=== PATIENT | female | born 1975 | race Caucasian/White ===

== ENCOUNTER 2020-08-17 07:26 | Outpatient (REF) | payer OTHER, SELFPAY ==
--- NOTE | 2020-08-17 | MM_ITS ---
EXAMINATION: MM SCREENING DIGITAL BREAST TOMOSYNTHESIS, BILATERAL CLINICAL INFORMATION: Screening. Asymptomatic. The lifetime risk of breast cancer based on the Tyrer-Cuzick Model is 11%. COMPARISON: Mammography: 03/06/2019; outside exam 09/30/2016 ([facility]). TECHNIQUE: Digital breast tomosynthesis is performed in both the craniocaudal and mediolateral oblique views along with computer-aided detection (CAD). Synthesized 2D images are generated from the tomosynthesis. FINDINGS: There are scattered areas of fibroglandular density (ACR BI-RADS breast composition Category b). There are no significant masses, abnormal calcifications, or other abnormalities. Parenchymal pattern is similar to prior exams. There is no developing density. The axilla and skin contours are unremarkable. MM/MM tomosynthesis screening BI IMPRESSION: No significant changes from prior studies. ASSESSMENT: BI-RADS 1: Negative RECOMMENDATION: Routine annual mammography screening. This patient's information was entered into a reminder system with a target due date for their next mammogram.
== END 2020-08-17 07:27 | disposition home or self-care (01) ==
LOC: HO.MAMMO 07:26
PROVIDERS: PCP Internal Medicine; Visit Provider Internal Medicine
DX: Z12.31 Encounter for screening mammogram for malignant neoplasm of breast (principal)
CPT/HCPCS: 77063; 77067

== ENCOUNTER 2021-03-22 12:37 | Outpatient (REF) | payer OTHER, SELFPAY ==
--- NOTE | ~2021-03-22 | XR_ITS ---
EXAMINATION: XR SHOULDER, LEFT CLINICAL INFORMATION: Pain. COMPARISON: None TECHNIQUE: Three views of the left shoulder. FINDINGS: There is no visible acute fracture, dislocation or subluxation seen. The soft tissues are normal. XR/XR shoulder LT min 2V IMPRESSION: Unremarkable left shoulder exam.
--- NOTE | ~2021-03-22 | XR_ITS ---
EXAMINATION: XR CERVICAL SPINE CLINICAL INFORMATION: Cervicalgia. COMPARISON: None TECHNIQUE: 3 views of the cervical spine were obtained. FINDINGS: Straightening of the normal cervical lordosis, which may be positional or related to muscular spasm. No acute fracture or subluxation. Normal atlantoaxial alignment. No loss of vertebral body or intervertebral disc height. No lytic or blastic osseous lesion. Unremarkable prevertebral soft tissues. XR/XR cervical spine 3V IMPRESSION: Straightening of the normal cervical lordosis, which may be positional or related to muscular spasm.
== END 2021-03-22 12:38 | disposition home or self-care (01) ==
LOC: HO.HMGCX 12:37
PROVIDERS: PCP Internal Medicine; Visit Provider Physician Assistant
DX: M25.512 Pain in left shoulder (principal); M54.2 Cervicalgia
CPT/HCPCS: 72040; 73030

== ENCOUNTER 2021-08-02 14:24 | Outpatient (REF) | payer OTHER, SELFPAY ==
--- NOTE | ~2021-08-02 | XR_ITS ---
EXAMINATION: XR CHEST CLINICAL INFORMATION: Cough. COMPARISON: None TECHNIQUE: 2 views of the chest were obtained. FINDINGS: No significant abnormality is noted involving the heart, lungs, mediastinum, bony thorax or soft tissues. XR/XR chest 2V IMPRESSION: No acute cardiopulmonary process.
== END 2021-08-02 14:25 | disposition home or self-care (01) ==
LOC: HO.HMGCX 14:24
PROVIDERS: PCP Internal Medicine; Visit Provider Physician Assistant Medical
DX: Z20.822 Contact with and (suspected) exposure to COVID-19 (principal); R05.9 Cough, unspecified
CPT/HCPCS: 71046; U0003; U0005

== ENCOUNTER 2021-08-18 14:52 | Outpatient (REF) | payer OTHER, SELFPAY | END 2021-08-18 14:53 | disposition home or self-care (01) | LOC: HO.MAMMO 14:52 | PROVIDERS: Visit Provider Internal Medicine | DX: Z13.89 Encounter for screening for other disorder (principal) ==

== ENCOUNTER 2021-09-17 14:19 | Outpatient (REF) | payer OTHER, SELFPAY ==
--- NOTE | ~2021-09-17 | MM_ITS ---
EXAMINATION: MM SCREENING DIGITAL BREAST TOMOSYNTHESIS, BILATERAL CLINICAL INFORMATION: Screening. Asymptomatic. The lifetime risk of breast cancer based on the Tyrer-Cuzick Model is 11.0%. COMPARISON: Mammography: August 17, 2020 and studies dating back to September 30, 2016 TECHNIQUE: Digital breast tomosynthesis is performed in both the craniocaudal and mediolateral oblique views along with computer-aided detection (CAD). Synthesized 2D images are generated from the tomosynthesis. FINDINGS: The breasts are heterogeneously dense, which may obscure small masses (ACR BI-RADS breast composition Category c). There are no significant masses, abnormal calcifications, or other abnormalities. MM/MM tomosynthesis screening BI IMPRESSION: There are no significant changes from prior study. ASSESSMENT: BI-RADS 1: Negative RECOMMENDATION: Routine annual mammography screening. This patient's information was entered into a reminder system with a target due date for their next mammogram.
== END 2021-09-17 14:20 | disposition home or self-care (01) ==
LOC: HO.MAMMO 14:19
PROVIDERS: Visit Provider Internal Medicine
DX: Z12.31 Encounter for screening mammogram for malignant neoplasm of breast (principal)
CPT/HCPCS: 77063; 77067

== ENCOUNTER 2021-11-22 08:00 | Outpatient (REF) | payer OTHER, SELFPAY ==
[2021-11-22 08:17] LABS: MANUAL DIFF FLAG NO
[2021-11-22 08:42] LABS: Basophils Percent Auto 0.1 % (0-2); Eosinophils Absolute Auto 0.1 X10*3/uL (0.0-0.4); Hematocrit 41.1 % (37.0-47.0); Hemoglobin 12.6 g/dl (12.0-16.0); Imm Gran Abs Auto 0.11 X10*3/uL (0.00-0.03); Imm Gran Pct Auto 0.8 % (0.0-0.4); Lymphocytes Absolute Auto 4.4 X10*3/uL (1.2-4.9); Lymphocytes Percent Auto 30.7 % (20-40); Mean Corpuscular HGB Conc 30.7 g/dl (31.0-35.0); Mean Corpuscular Hemoglobin 27.3 pg (27.0-33.0); Mean Platelet Volume 9.2 fL (9.4-12.3); Monocytes Absolute Auto 0.9 X10*3/uL (0.1-1.2); Monocytes Percent Auto 6.4 % (2-11); Neutrophils Absolute Auto 8.8 x10*3/uL (2.0-8.3); Platelet Count 466 X10*3/uL (160-400); Red Blood Count 4.62 X10*6/uL (4.20-5.50); Red Cell Distribution Width 13.2 % (11.0-16.0); White Blood Count 14.5 X10*3/uL (4.8-10.8)
[2021-11-22 09:07] LABS: Alanine Aminotransferase 22 U/L (0-31); Albumin Level 4.1 g/dL (3.5-5.0); Alkaline Phosphatase 97 U/L (39-117); Anion Gap 15 (12-20); Aspartate Amino Transferase 14 U/L (5-31); Bilirubin Total 0.5 mg/dL (0.0-1.0); Blood Urea Nitrogen 14 mg/dL (9-16); Calcium 9.6 mg/dL (8.4-10.2); Carbon Dioxide 29 mmol/L (22-29); Chloride 101 mmol/L (96-108); Estimated Glomerular Filt Rate > 60; Glucose Random 129 mg/dL (60-115); Potassium 4.6 mmol/L (3.3-5.1); Sodium 140 mmol/L (135-145); Total Protein 7.2 g/dL (6.5-8.0)
[2021-11-22 09:08] LABS: Cholesterol 273 mg/dL; HDL Cholesterol 76 mg/dL; LDL Cholesterol Calculated 162 mg/dl; Triglycerides 178 mg/dL
[2021-11-22 09:30] LABS: Vitamin D 25-OH Total 7.6 ng/mL (>30)
== END 2021-11-22 08:01 | disposition home or self-care (01) ==
LOC: HO.LAB 08:00
PROVIDERS: Physician Assistant; Absent Provider Internal Medicine; PCP Internal Medicine; Visit Provider Internal Medicine Rheumatology
DX: I10 Essential (primary) hypertension (principal); M79.7 Fibromyalgia
CPT/HCPCS: 36415; 80053; 80061; 82306; 85025

== ENCOUNTER 2022-03-28 09:15 | Outpatient (REF) | payer OTHER, SELFPAY ==
[2022-03-28 11:20] LABS: Alanine Aminotransferase 18 U/L (0-31); Albumin Level 4.3 g/dL (3.5-5.0); Alkaline Phosphatase 111 U/L (39-117); Anion Gap 13 (12-20); Aspartate Amino Transferase 15 U/L (5-31); Bilirubin Total 0.3 mg/dL (0.0-1.0); Blood Urea Nitrogen 9 mg/dL (9-16); Calcium 9.4 mg/dL (8.4-10.2); Carbon Dioxide 27 mmol/L (22-29); Chloride 102 mmol/L (96-108); Estimated Glomerular Filt Rate > 60; Glucose Random 133 mg/dL (60-115); Potassium 4.4 mmol/L (3.3-5.1); Sodium 138 mmol/L (135-145); Total Protein 7.5 g/dL (6.5-8.0)
[2022-03-28 11:22] LABS: Estimated Average Glucose 128 mg/dL; Hemoglobin A1c % 6.1 %
[2022-03-28 11:45] LABS: Free T4 (Free Thyroxine) 0.84 ng/dL (0.71-1.85); Insulin 21 uU/mL (2-29); Thyroid Stimulating Hormone 0.88 uIU/mL (0.32-4.0)
[2022-03-28 12:32] LABS: Cortisol Random 11.1 ug/dL
[2022-03-30 07:52] LABS: Follicle Stimulating Hormone 4.5 mIU/mL; Lutenizing Hormone 9.6 mIU/mL; Prolactin 20.3 ng/mL
[2022-03-31 00:56] LABS: DHEA Sulfate 45 mcg/dL (15-205)
[2022-03-31 18:02] LABS: Thyroid Peroxidase Antibodies <1 IU/mL (<9)
[2022-04-02 11:25] LABS: Testosterone, Total 30 ng/dL (2-45)
[2022-04-03 17:52] LABS: Progesterone 0.2 ng/mL
[2022-04-04 01:11] LABS: Estradiol, Ultrasensitive 669 pg/mL
== END 2022-03-28 09:16 | disposition home or self-care (01) ==
LOC: HO.HMGCLDS 09:15
PROVIDERS: PCP Internal Medicine; Visit Provider Physician Assistant
DX: N95.8 Other specified menopausal and perimenopausal disorders (principal); R63.5 Abnormal weight gain
CPT/HCPCS: 36415; 80053; 82533; 82627; 82670; 82672; 82681; 83001; 83002; 83036; 83525; 84144; 84146; 84403; 84439; 84443; 86376

== ENCOUNTER 2022-08-14 15:42 | Outpatient (REF) | payer OTHER, SELFPAY ==
[2022-08-14 17:54] LABS: CT PCR NOT DETECTED (Not Detect.); NG PCR NOT DETECTED (Not Detect.)
[2022-08-15 15:01] LABS: BV Int Neg Control Negative (Negative); BV Int Pos Control Positive (Positive)
[2022-08-26 04:57] LABS: HPV mRNA E6/E7 rflx Not Detected (Not Detected)
== END 2022-08-14 15:43 | disposition home or self-care (01) ==
LOC: HO.LNP 15:42
PROVIDERS: Visit Provider Advanced Practice Midwife
DX: Z01.419 Encounter for gynecological examination (general) (routine) without abnormal findings (principal); Z11.51 Encounter for screening for human papillomavirus (HPV)
CPT/HCPCS: 87480; 87491; 87510; 87591; 87624; 87660; 88142

== ENCOUNTER 2022-09-18 13:31 | Outpatient (REF) | payer OTHER, SELFPAY ==
[2022-09-18 15:24] LABS: Hematocrit 35.5 % (37.0-47.0); Hemoglobin 11.4 g/dl (12.0-16.0); Mean Corpuscular HGB Conc 32.1 g/dl (31.0-35.0); Mean Corpuscular Hemoglobin 27.2 pg (27.0-33.0); Mean Corpuscular Volume 84.7 fL (80.0-98.0); Mean Platelet Volume 9.4 fL (9.4-12.3); Platelet Count 414 X10*3/uL (160-400); Red Blood Count 4.19 X10*6/uL (4.20-5.50); White Blood Count 11.2 X10*3/uL (4.8-10.8)
== END 2022-09-18 13:32 | disposition home or self-care (01) ==
LOC: HO.US 13:31
PROVIDERS: Absent Provider Advanced Practice Midwife; PCP Internal Medicine; Visit Provider Obstetrics & Gynecology
DX: N92.0 Excessive and frequent menstruation with regular cycle (principal)
CPT/HCPCS: 36415; 76830; 76856; 85027

== ENCOUNTER 2022-09-22 13:32 | Outpatient (REF) | payer OTHER, SELFPAY ==
--- NOTE | ~2022-09-22 | MM_ITS ---
EXAMINATION: MM SCREENING DIGITAL BREAST TOMOSYNTHESIS, BILATERAL CLINICAL INFORMATION: Screening. Asymptomatic. The lifetime risk of breast cancer based on the Tyrer-Cuzick Model is 10.9%. COMPARISON: Mammography: September 17, 2021 and studies dating back to September 30, 2016 TECHNIQUE: Digital breast tomosynthesis is performed in both the craniocaudal and mediolateral oblique views along with computer-aided detection (CAD). Synthesized 2D images are generated from the tomosynthesis. FINDINGS: The breasts are heterogeneously dense, which may obscure small masses (ACR BI-RADS breast composition Category c). There are no significant masses, abnormal calcifications, or other abnormalities. MM/MM tomosynthesis screening BI IMPRESSION: No significant changes from prior exam. ASSESSMENT: BI-RADS 1: Negative RECOMMENDATION: Routine annual mammography screening. This patient's information was entered into a reminder system with a target due date for their next mammogram.
== END 2022-09-22 13:33 | disposition home or self-care (01) ==
LOC: HO.MAMMO 13:32
PROVIDERS: Visit Provider Internal Medicine
DX: Z12.31 Encounter for screening mammogram for malignant neoplasm of breast (principal)
CPT/HCPCS: 77063; 77067

== ENCOUNTER 2022-10-01 09:43 | Outpatient (REF) | payer OTHER, SELFPAY | END 2022-10-01 09:44 | disposition home or self-care (01) | LOC: HO.LNP 09:43 | PROVIDERS: PCP Internal Medicine; Visit Provider Advanced Practice Midwife | DX: Z71.2 Person consulting for explanation of examination or test findings (principal); N92.0 Excessive and frequent menstruation with regular cycle | CPT/HCPCS: 58100; 81025; 88305 ==

== ENCOUNTER → 2022-10-21 14:24 | Outpatient (BNVA) | payer OTHER, SELFPAY | PROVIDERS: PCP Internal Medicine; Visit Provider Advanced Practice Midwife | DX: N92.0 Excessive and frequent menstruation with regular cycle (principal); Z71.2 Person consulting for explanation of examination or test findings | CPT/HCPCS: 81025 ==

== ENCOUNTER → 2023-10-01 15:30 | Outpatient (BNV) | payer OTHER, SELFPAY | PROVIDERS: PCP Internal Medicine; Visit Provider Radiology Diagnostic Radiology | DX: Z12.31 Encounter for screening mammogram for malignant neoplasm of breast (principal) | CPT/HCPCS: 77063; 77067 ==

== ENCOUNTER 2023-10-01 15:36 | Outpatient (REF) | payer OTHER, SELFPAY ==
--- NOTE | ~2023-10-01 | MM_ITS ---
EXAMINATION: MM SCREENING DIGITAL BREAST TOMOSYNTHESIS, BILATERAL CLINICAL INFORMATION: Screening. Asymptomatic. COMPARISON: Mammography: 09/22/2022, 09/17/2021, and studies dating back to September 30, 2016 TECHNIQUE: Digital breast tomosynthesis is performed in both the craniocaudal and mediolateral oblique views along with computer-aided detection (CAD). Synthesized 2D images are generated from the tomosynthesis. FINDINGS: The breasts are heterogeneously dense, which may obscure small masses (ACR BI-RADS breast composition Category c). There are no suspicious masses, suspicious grouped calcifications, or areas of architectural distortion in either breast. The parenchymal pattern is stable from prior exams. MM/MM tomosynthesis screening BI IMPRESSION: No mammographic evidence of malignancy. ASSESSMENT: BI-RADS BI-RADS 1 - Negative RECOMMENDATION: Routine annual mammography screening. 1 year F/U This examination should not preclude the clinical evaluation of a suspicious palpable abnormality. This patient's information was entered into a reminder system with a target due date for their next mammogram.
== END 2023-10-01 15:37 | disposition home or self-care (01) ==
LOC: HO.MAMMO 15:36
PROVIDERS: PCP Internal Medicine; Visit Provider Internal Medicine
DX: Z12.31 Encounter for screening mammogram for malignant neoplasm of breast (principal)
CPT/HCPCS: 77063; 77067

== ENCOUNTER → 2023-11-04 15:00 | Outpatient (BNVA) | payer OTHER, SELFPAY | PROVIDERS: PCP Internal Medicine; Visit Provider Physician Assistant ==

== ENCOUNTER 2023-11-24 14:02 | Outpatient (AMB) | payer OTHER, SELFPAY ==
--- NOTE | 2023-11-24 14:04 | A.OFFVIS_ITS ---
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 dustmites, trees, gras Allergy (Unknown, Uncoded 11/24/23 14:17) Itchy Eyes HPI HPI Comments History of Present Illness Details This is a 48 year old woman who is here to start SWL program with SWL classes. Her goal is to not have her weight be in her wy of her life. She reports first being concerned about her weight . She has tried multiple methods of weight loss including 25 years ado. without permanent results. Sees a therapist for the last year.She lives with her ppartnerRicardo. She works 7:30 - 5pm, 5 days per week She wakes at: 5am, bed at 8pm, falls asleep with TV on around 8:30 -9 pm. Breakfast: 5:40 am - coffee 1 cup with whole milk. skips breakfast every day. Then gets large Iced coffee with creams and sugared syrup - sips on that through the day. Lunch: 11:30 am - snap peas and single serving humus and pretzels, piece of cheddar cheese. water Dinner: 6pm - 2 chicken tacos and lettuce, rice and beans. either 1 beer or 1 glass of wine. After dinner: none Other snacks: none Liquids: Ocassioanl gingerale, no fruit juice Alcohol intake: 1 drink per day, 2 drinks on weekends. tobacco: none, marijuana: none Exercise: none, no membership or equipment Last mammogram: Aug 2023 Last pap smear: appt in December 2023 control method: none JAIRO:5 ESS:13 GERD:25 QOL:139 PFSH Medical History (Updated 11/24/23 @ 14:43 by Courtney Rosenthal PA-C) Migraines, neuralgic Anxiety Depression Asthma Surgical History (Updated 11/04/23 @ 15:08 by Melida Scherer [facility]) [place] teeth removed H/O knee surgery Family History Father Diabetes HTN (hypertension) Hyperlipidemia Mother HTN (hypertension) Osteoporosis Uterine cancer Maternal Grandmother Colon cancer Social History (Updated 11/04/23 @ 15:08 by Melida Scherer [employer] BUTTON GENERATOR) Household Members Other:: partner Housing: House Alcohol intake: current Alcohol intake frequency: 0-2 drinks per day Alcohol type: beer and wine Patient Tobacco Use Status: Former Tobacco user Years Smoked: 5 Current occupational status: employed 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 Blood work, h pylori , CXR, ECG, Abd ULS and UGI have been ordered. She is being scheduled for RD and BH initial consultations. She will start SWL classes and watch at 3 classes before her next appt with Irlanda. 1. Adequate sleep of 7-8 hours per night discussed, will use meditation or relaxation not TV to fall asleep 2. Healthy meal plan - stop skipping meals and stop all sweetened drinks, no caffeine after 2pm. Decrease ETOH. All meals/MR's need to take 20 minutes to complete Coffee with UAM only 9 am - protein shake with water or UAM 12 pm - protein shake with water or UAM 3 pm- bar or yogurt 6 pm- dinner of 12 forks lean protein, 12 forks vegetable, 1 serving fruit Exercise - purchasing treadmill for home use. LS 2mile - 30 minutes - 4 d/wk The importance of avoiding and breast feeding for at least 18 months after bariatric surgery was discussed in the information session and was reinforced today. Pt will purchase body composition analyzer (recommended list given to patient) and weight herself weekly. Next appt with Dr Stock Text me with any questions and weekly weights. Patient is morbidly obese and is not considered stable at this time.?I spent a total of 60 minutes reviewing/updating records, examining the patient and counseling the patient on weight management as detailed above. (2) YENNIFER on CPAP: Code(s): G47.33 - Obstructive sleep apnea (adult) (pediatric) (3) Major depression: Code(s): F32.9 - Major depressive disorder, single episode, unspecified (4) Hyperlipidemia: Code(s): E78.5 - Hyperlipidemia, unspecified (5) HTN (hypertension), benign: Code(s): I10 - Essential (primary) hypertension Plan see above Orders: Orders Hemoglobin A1c Today E66.01 - Morbid (severe) obesity due to excess calories, E78.5 - Hyperlipidemia, unspecified, F32.9 - Major depressive disorder, single episode, unspecified, G47.33 - Obstructive sleep apnea (adult) (pediatric), I10 - Essential (primary) hypertension H Pylori Breath Test Today E66.01 - Morbid (severe) obesity due to excess calories, E78.5 - Hyperlipidemia, unspecified, F32.9 - Major depressive disorder, single episode, unspecified, G47.33 - Obstructive sleep apnea (adult) (pediatric), I10 - Essential (primary) hypertension Lipid Panel Today E66.01 - Morbid (severe) obesity due to excess calories, E78.5 - Hyperlipidemia, unspecified, F32.9 - Major depressive disorder, single episode, unspecified, G47.33 - Obstructive sleep apnea (adult) (pediatric), I10 - Essential (primary) hypertension Comprehensive Met. Panel Today E66.01 - Morbid (severe) obesity due to excess calories, E78.5 - Hyperlipidemia, unspecified, F32.9 - Major depressive disorder, single episode, unspecified, G47.33 - Obstructive sleep apnea (adult) (pediatric), I10 - Essential (primary) hypertension Zinc Today E66.01 - Morbid (severe) obesity due to excess calories, E78.5 - Hyperlipidemia, unspecified, F32.9 - Major depressive disorder, single episode, unspecified, G47.33 - Obstructive sleep apnea (adult) (pediatric), I10 - Essential (primary) hypertension Vitamin A Today E66.01 - Morbid (severe) obesity due to excess calories, E78.5 - Hyperlipidemia, unspecified, F32.9 - Major depressive disorder, single episode, unspecified, G47.33 - Obstructive sleep apnea (adult) (pediatric), I10 - Essential (primary) hypertension Ferritin Today E66.01 - Morbid (severe) obesity due to excess calories, E78.5 - Hyperlipidemia, unspecified, F32.9 - Major depressive disorder, single episode, unspecified, G47.33 - Obstructive sleep apnea (adult) (pediatric), I10 - Essential (primary) hypertension Vitamin D 25-OH Total Today E66.01 - Morbid (severe) obesity due to excess calories, E78.5 - Hyperlipidemia, unspecified, F32.9 - Major depressive disorder, single episode, unspecified, G47.33 - Obstructive sleep apnea (adult) (pediatric), I10 - Essential (primary) hypertension US abdomen comp w elastography Today E66.01 - Morbid (severe) obesity due to excess calories, E78.5 - Hyperlipidemia, unspecified, F32.9 - Major depressive disorder, single episode, unspecified, G47.33 - Obstructive sleep apnea (adult) (pediatric), I10 - Essential (primary) hypertension XR chest 2V Today E66.01 - Morbid (severe) obesity due to excess calories, E78.5 - Hyperlipidemia, unspecified, F32.9 - Major depressive disorder, single episode, unspecified, G47.33 - Obstructive sleep apnea (adult) (pediatric), I10 - Essential (primary) hypertension ECG 12 lead EKG Today E66.01 - Morbid (severe) obesity due to excess calories, E78.5 - Hyperlipidemia, unspecified, F32.9 - Major depressive disorder, single episode, unspecified, G47.33 - Obstructive sleep apnea (adult) (pediatric), I10 - Essential (primary) hypertension FL upper GI w air Today E66.01 - Morbid (severe) obesity due to excess calories, E78.5 - Hyperlipidemia, unspecified, F32.9 - Major depressive disorder, single episode, unspecified, G47.33 - Obstructive sleep apnea (adult) (pediatric), I10 - Essential (primary) hypertension Insulin Today E66.01 - Morbid (severe) obesity due to excess calories, E78.5 - Hyperlipidemia, unspecified, F32.9 - Major depressive disorder, single episode, unspecified, G47.33 - Obstructive sleep apnea (adult) (pediatric), I10 - Essential (primary) hypertension Complete Blood Count Auto Diff Today E66.01 - Morbid (severe) obesity due to excess calories, E78.5 - Hyperlipidemia, unspecified, F32.9 - Major depressive disorder, single episode, unspecified, G47.33 - Obstructive sleep apnea (adult) (pediatric), I10 - Essential (primary) hypertension IRON PROFILE Today E66.01 - Morbid (severe) obesity due to excess calories, E78.5 - Hyperlipidemia, unspecified, F32.9 - Major depressive disorder, single episode, unspecified, G47.33 - Obstructive sleep apnea (adult) (pediatric), I10 - Essential (primary) hypertension Vitamin B12 and Folate Today E66.01 - Morbid (severe) obesity due to excess calories, E78.5 - Hyperlipidemia, unspecified, F32.9 - Major depressive disorder, single episode, unspecified, G47.33 - Obstructive sleep apnea (adult) (pediatric), I10 - Essential (primary) hypertension C Reactive Protein Today E66.01 - Morbid (severe) obesity due to excess calories, E78.5 - Hyperlipidemia, unspecified, F32.9 - Major depressive disorder, single episode, unspecified, G47.33 - Obstructive sleep apnea (adult) (pediatric), I10 - Essential (primary) hypertension Vitamin B1 Today E66.01 - Morbid (severe) obesity due to excess calories, E78.5 - Hyperlipidemia, unspecified, F32.9 - Major depressive disorder, single episode, unspecified, G47.33 - Obstructive sleep apnea (adult) (pediatric), I10 - Essential (primary) hypertension TSH reflex Free T4 Today E66.01 - Morbid (severe) obesity due to excess calories, E78.5 - Hyperlipidemia, unspecified, F32.9 - Major depressive disorder, single episode, unspecified, G47.33 - Obstructive sleep apnea (adult) (pediatric), I10 - Essential (primary) hypertension Referrals Behavioral Health Referral E66.01 - Morbid (severe) obesity due to excess calories, E78.5 - Hyperlipidemia, unspecified, F32.9 - Major depressive disorder, single episode, unspecified, G47.33 - Obstructive sleep apnea (adult) (pediatric), I10 - Essential (primary) hypertension Nutrition/Dietitian Referral E66.01 - Morbid (severe) obesity due to excess calories, E78.5 - Hyperlipidemia, unspecified, F32.9 - Major depressive disorder, single episode, unspecified, G47.33 - Obstructive sleep apnea (adult) (pediatric), I10 - Essential (primary) hypertension Coding Level of Care Code New Pt Level 5 (16620) Diagnoses Morbid obesity E66.01 YENNIFER on CPAP G47.33 Major depression F32.9 Hyperlipidemia E78.5 HTN (hypertension), benign I10
[2023-11-24 14:09] VITALS: BP 164/76; PULSE 95; TEMP 35.8; O2SAT 95; BMI 50.6
== END 2023-11-24 15:04 | disposition home or self-care (01) ==
PROVIDERS: PCP Internal Medicine; Visit Provider Physician Assistant
DX: E66.01 Morbid (severe) obesity due to excess calories (principal); Z68.43 Body mass index [BMI] 50.0-59.9, adult; G47.33 Obstructive sleep apnea (adult) (pediatric); E78.5 Hyperlipidemia, unspecified; I10 Essential (primary) hypertension
CPT/HCPCS: 99205

== ENCOUNTER → 2023-11-24 14:02 | Outpatient (BNVA) | payer OTHER, SELFPAY | PROVIDERS: PCP Internal Medicine; Visit Provider Physician Assistant ==

== ENCOUNTER 2023-12-04 08:41 | Outpatient (REF) | payer OTHER, SELFPAY ==
--- NOTE | ~2023-12-04 | XR_ITS ---
EXAMINATION: XR CHEST 2 VIEWS CLINICAL INFORMATION: Morbid obesity. COMPARISON: Chest radiographs dated 08/02/2021. TECHNIQUE: Frontal and lateral views of the chest were obtained. FINDINGS: The heart, great vessels, pulmonary vasculature and mediastinum are normal. The lungs show no focal infiltrate, effusion or pneumothorax. There is no acute osseous abnormality. XR/XR chest 2V IMPRESSION: No active cardiopulmonary disease.
[2023-12-04 11:09] LABS: Basophils Percent Auto 0.4 % (0-2); Eosinophils Absolute Auto 0.3 X10*3/uL (0.0-0.4); Eosinophils Percent Auto 3.6 % (0-4); Hematocrit 39.3 % (37.0-47.0); Hemoglobin 12.6 g/dl (12.0-16.0); Imm Gran Abs Auto 0.03 X10*3/uL (0.00-0.03); Imm Gran Pct Auto 0.4 % (0.0-0.4); Lymphocytes Absolute Auto 1.8 X10*3/uL (1.2-4.9); Lymphocytes Percent Auto 23.3 % (20-40); MANUAL DIFF FLAG NO; Mean Corpuscular HGB Conc 32.1 g/dl (31.0-35.0); Mean Corpuscular Hemoglobin 27.7 pg (27.0-33.0); Mean Corpuscular Volume 86.4 fL (80.0-98.0); Mean Platelet Volume 10.1 fL (9.4-12.3); Monocytes Absolute Auto 0.6 X10*3/uL (0.1-1.2); Monocytes Percent Auto 7.4 % (2-11); Neutrophils Absolute Auto 4.9 x10*3/uL (2.0-8.3); Neutrophils Percent Auto 64.9 % (45-73); Platelet Count 392 X10*3/uL (160-400); Red Blood Count 4.55 X10*6/uL (4.20-5.50); Red Cell Distribution Width 13.1 % (11.0-16.0); White Blood Count 7.6 X10*3/uL (4.8-10.8)
[2023-12-04 11:24] LABS: Estimated Average Glucose 131 mg/dL; Hemoglobin A1c % 6.2 % (<6.0)
[2023-12-04 12:36] LABS: Alanine Aminotransferase 50 U/L (0-31); Albumin Level 4.2 g/dL (3.5-5.0); Alkaline Phosphatase 104 U/L (39-117); Anion Gap 12 (12-20); Aspartate Amino Transferase 42 U/L (5-31); Bilirubin Total 0.4 mg/dL (0.0-1.0); Blood Urea Nitrogen 12 mg/dL (9-16); C Reactive Protein 1.05 mg/dL (< or = 0.50); Calcium 9.5 mg/dL (8.4-10.2); Carbon Dioxide 27 mmol/L (22-29); Chloride 104 mmol/L (96-108); Cholesterol 184 mg/dL (<200); Estimated Glomerular Filt Rate > 60; Glucose Random 123 mg/dL (60-115); HDL Cholesterol 39 mg/dL (>40); Iron 56 mcg/dL (30-160); LDL Cholesterol Calculated 119 mg/dL (<100); Percent Iron Saturation 18 % (15-50); Potassium 4.3 mmol/L (3.3-5.1); Sodium 139 mmol/L (135-145); Total Iron Binding Capacity 311 mcg/dL (228-428); Total Protein 7.6 g/dL (6.5-8.0); Triglycerides 133 mg/dL (<150); Unsaturated Iron Binding 255 ug/dL
[2023-12-04 12:37] LABS: Ferritin 57 ng/mL (10-250); Insulin 11 uU/mL (2-29); TSH reflex Free T4 0.63 uIU/mL (0.32-4.0); Vitamin D 25-OH Total 42.2 ng/mL (>30)
[2023-12-04 12:45] LABS: Folate 13.6 ng/mL (> or = 4.0); Vitamin B12 677 pg/mL (200-900)
[2023-12-07 16:39] LABS: Zinc 73 mcg/dL (60-130)
[2023-12-09 01:14] LABS: Vitamin A 34 mcg/dL (38-98)
[2023-12-11 13:23] LABS: Vitamin B1 7 nmol/L (8-30)
== END 2023-12-04 08:42 | disposition home or self-care (01) ==
LOC: HO.HMGCX 08:41
PROVIDERS: PCP Internal Medicine; Visit Provider Physician Assistant
DX: E66.01 Morbid (severe) obesity due to excess calories (principal); G47.33 Obstructive sleep apnea (adult) (pediatric); F32.9 Major depressive disorder, single episode, unspecified; E78.5 Hyperlipidemia, unspecified; I10 Essential (primary) hypertension
CPT/HCPCS: 36415; 71046; 80053; 80061; 82306; 82607; 82728; 82746; 83036; 83525; 83540; 84425; 84443; 84590; 84630; 85025; 86140

== ENCOUNTER 2023-12-07 14:19 | Outpatient (REF) | payer OTHER, SELFPAY ==
[2023-12-12 14:28] LABS: H Pylori Breath Test Negative (Negative)
== END 2023-12-07 14:20 | disposition home or self-care (01) ==
LOC: HO.LNP 14:19
PROVIDERS: Visit Provider Physician Assistant
DX: E66.01 Morbid (severe) obesity due to excess calories (principal); E78.5 Hyperlipidemia, unspecified; I10 Essential (primary) hypertension
CPT/HCPCS: 83013

== ENCOUNTER 2023-12-07 15:17 | Outpatient (AMB) | payer OTHER, SELFPAY ==
--- NOTE | 2023-12-07 15:21 | A.OFFVIS_ITS ---
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 dustmites, trees, gras Allergy (Unknown, Uncoded 11/24/23 14:17) Itchy Eyes HPI Nutrition Presentation Reason for consult elevated BMI Food allergies/aversions Yes (Chocolate and tomato both causes rashes on face, hands, lips ) Diet Assmnt Details Using Premier protein and Atkins , has allergy to chocolate, so choosing other flavors. dinner mainly has protein and veg, she is happy with the plan from Courtney SUTTON, will see Dr. Dean in 2 weeks to establish care. [facility] online classes; completed, reviewed. Previous weight loss methods attempted phentermine - didn't tolerate She has tried multiple methods of weight loss including 25 years ado. without permanent results. Sees a therapist for the last year Dietary counseling reduction Meal frequency regular: lunch, dinner and snacks and never: breakfast Lifestyle Eating out 1-3 times/week Diagnosis Nutrition problem #1 overweight/obesity As related to (etiology) #1 excess energy intake and physical inactivity As evidenced by (sign/symptom) #1 high BMI Monitoring/Goals Nutrition problem monitoring total energy intake, level of knowledge/skill, total PRO intake, total CHO intake, weight and oral fluids Outcome progress progressing Learning/Education Readiness to learn excellent Stages of change action Educational materials provided Yes Most Recent Diabetes Results: Cholesterol 184 mg/dL (<200) 12/04/23 HDL Cholesterol 39 mg/dL (>40) L 12/04/23 Triglycerides 133 mg/dL (<150) 12/04/23 Creatinine 0.70 mg/dL (0.5-1.4) 12/04/23 Blood Urea Nitrogen 12 mg/dL (9-16) 12/04/23 Sodium 139 mmol/L (135-145) 12/04/23 Potassium 4.3 mmol/L (3.3-5.1) 12/04/23 Chloride 104 mmol/L (96-108) 12/04/23 Carbon Dioxide 27 mmol/L (22-29) 12/04/23 Calcium 9.5 mg/dL (8.4-10.2) 12/04/23 AST 42 U/L (5-31) H 12/04/23 ALT 50 U/L (0-31) H 12/04/23 Total Protein 7.6 g/dL (6.5-8.0) 12/04/23 Albumin 4.2 g/dL (3.5-5.0) 12/04/23 [facility] Medical History (Updated 11/24/23 @ 14:43 by TANYA HoskinsC) Migraines, neuralgic Anxiety Depression Asthma Surgical History [place] teeth removed H/O knee surgery Family History Father Diabetes HTN (hypertension) Hyperlipidemia Mother HTN (hypertension) Osteoporosis Uterine cancer Maternal Grandmother Colon cancer Social History Household Members Other:: partner Housing: House Alcohol intake: current Alcohol intake frequency: 0-2 drinks per day Alcohol type: beer and wine Patient Tobacco Use Status: Former Tobacco user Years Smoked: 5 Current occupational status: employed 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 Educational requirements have been completed. Reviewed vitamin supplementation and commitment to protein shake for several months post surgery. Encouraged communication with office as needed Coding Level of Care Code Nutr Indiv Intake (16363) Diagnoses Morbid obesity E66.01 Time Spent (min) 45
== END 2023-12-07 16:15 | disposition home or self-care (01) ==
PROVIDERS: PCP Internal Medicine; Visit Provider Dietitian, Registered
DX: E66.01 Morbid (severe) obesity due to excess calories (principal)

== ENCOUNTER → 2023-12-07 15:17 | Outpatient (BNVA) | payer OTHER, SELFPAY | PROVIDERS: PCP Internal Medicine; Visit Provider Dietitian, Registered | DX: E66.01 Morbid (severe) obesity due to excess calories (principal); Z71.3 Dietary counseling and surveillance; Z11.0 Encounter for screening for intestinal infectious diseases | CPT/HCPCS: 97802; 99211 ==

== ENCOUNTER 2023-12-15 08:24 | Outpatient (REF) | payer OTHER, SELFPAY ==
--- NOTE | ~2023-12-15 | US_ITS ---
EXAMINATION: US COMPLETE ABDOMEN WITH LIVER ELASTOGRAPHY CLINICAL INFORMATION: Obesity. COMPARISON: None available. TECHNIQUE: Real-time imaging of the abdominal viscera. Noninvasive ultrasound liver fibrosis assessment is performed using [employer] ElastPQ point quantification shear wave elastography (2D-SWE) with a C5-2 MHz transducer. Multiple elastography samples are obtained. FINDINGS: PANCREAS: Limited. The visualized pancreatic head and body are normal in appearance. The remainder of the pancreas is obscured from visualization by the overlying bowel gas. ABDOMINAL AORTA: The proximal, middle, and distal aortic segments are normal in caliber. INFERIOR VENA CAVA: Visualized portions are normal. LIVER: The liver demonstrates normal size, contour and generally increased echogenicity. No focal lesion or intrahepatic biliary duct dilatation. The right lobe measures 16.9 cm in length. The left lobe measures 13.3 cm in length. Portal flow is towards the liver (hepatopetal). Shear wave liver elastography median stiffness is 1.04 m/s (reference: normal median stiffness is 1.3 m/s or less). IQR/median stiffness to assess sampling precision is 0.53 (reference: good quality data set is IQR/median stiffness of 0.15 or less). GALLBLADDER: Normal. The gallbladder is physiologically distended without evidence of stones, sludge, polyps, wall thickening or pericholecystic fluid. COMMON BILE DUCT: Normal in caliber measuring 0.5 cm in diameter. RIGHT KIDNEY: Normal. No hydronephrosis. No renal calculi or focal parenchymal lesions. The kidney measures 11.4 cm in maximum dimension. LEFT KIDNEY: Normal. No hydronephrosis. No renal calculi or focal parenchymal lesions. The kidney measures 11.3 cm in maximum dimension. SPLEEN: Normal. The spleen measures 10.9 cm in maximum dimension. FREE FLUID: None. US/US abdomen comp w elastography IMPRESSION: 1. There is generalized increase in hepatic echotexture, consistent with fatty infiltration or hepatocellular disease. Please correlate clinically. No focal hepatic mass or intrahepatic biliary dilatation is seen. 2. Liver elastography: Although measurements suggest a high probability of normal liver stiffness, there is statistical variability of the sampling which decreases accuracy. 3. Further limited ultrasound appearance of the pancreas. REFERENCE: Society of Radiologists in Ultrasound Liver Stiffness Thresholds (2020): LIVER STIFFNESS THRESHOLDS: *Liver Stiffness equal or less than 1.3 m/s: High probability of being normal. *Liver Stiffness less than 1.7 m/s: In the absence of other known clinical signs, rules out compensated advanced chronic liver disease. *Liver Stiffness 1.7-2.1 m/s: Suggestive of compensated advanced chronic liver disease but need further test for confirmation. *Liver Stiffness over 2.1 m/s: Rules in compensated advanced chronic liver disease. *Liver Stiffness over 2.4 m/s: Suggestive of clinically significant portal hypertension. QUALITY OF DATA SET: *IQR/Median value equal or less than 0.15 implies a quality data set. *IQR/Median value over 0.15 implies a poor quality data set. SIGNIFICANT CHANGE FROM PRIOR EXAM: Significant change if liver stiffness measurement is 10% or greater from prior exam. OTHER CONSIDERATIONS: The stage of liver fibrosis may be overestimated in the setting of acute hepatitis, liver inflammation, elevated liver function tests, hepatic vascular congestion, obstructive cholestasis, non-fasting state, and infiltrative diseases such as amyloidosis and lymphoma. In some patients with NAFLD, the liver stiffness thresholds for compensated advanced chronic liver disease may be lower. In causes other than viral hepatitis and NAFLD, liver stiffness thresholds are not well established.
--- NOTE | 2023-12-15 09:04 | ECG_ITS ---
Test Reason : obesity Blood Pressure : / mmHG Vent. Rate : 075 BPM Atrial Rate : 075 BPM P-R Int : 128 ms QRS Dur : 080 ms QT Int : 396 ms P-R-T Axes : 004 046 023 degrees QTc Int : 442 ms Normal sinus rhythm Nonspecific ST abnormality Abnormal ECG No previous ECGs available Referred By: Courtney Rosenthal Electronically Signed By:MIKE GREER
== END 2023-12-15 08:25 | disposition home or self-care (01) ==
LOC: HO.US 08:24
PROVIDERS: PCP Internal Medicine; Visit Provider Physician Assistant
DX: E66.01 Morbid (severe) obesity due to excess calories (principal); I10 Essential (primary) hypertension; F32.9 Major depressive disorder, single episode, unspecified; E78.5 Hyperlipidemia, unspecified; G47.33 Obstructive sleep apnea (adult) (pediatric)
CPT/HCPCS: 76700; 76981; 93005

== ENCOUNTER → 2023-12-15 09:04 | Outpatient (BNV) | payer OTHER, SELFPAY | PROVIDERS: PCP Internal Medicine; Visit Provider Internal Medicine | DX: E66.9 Obesity, unspecified (principal); R94.31 Abnormal electrocardiogram [ECG] [EKG]; E78.5 Hyperlipidemia, unspecified | CPT/HCPCS: 93010 ==

== ENCOUNTER 2023-12-20 08:19 | Outpatient (AMB) | payer OTHER, SELFPAY ==
--- NOTE | 2023-12-20 13:21 | MHC.OFFVISWM ---
Intake VS Expanded 12/20/23 13:36 Height 5 ft 1 in Weight 258 lb 4 oz BMI 48.8 Intake Visit Reasons: TV Transfer / Courtney 1ST Allergies amoxicillin [From Augmentin] Adverse Reaction (Verified 12/20/23 13:21) Rash clavulanic acid [From Augmentin] Adverse Reaction (Verified 12/20/23 13:21) Rash Isopropanol buto bicarbonate Allergy (Unknown, Uncoded 12/20/23 13:21) Rash Latex Allergy (Unknown, Uncoded 12/20/23 13:21) Rash Pollen. dustmites, trees, gras Allergy (Unknown, Uncoded 12/20/23 13:21) Itchy Eyes Medication List - Last Reconciled 12/20/23 by Marc Dean MD albuterol sulfate 90 mcg/actuation 2 puffs inhalation Q6H PRN atorvastatin 40 mg PO DAILY betamethasone dipropionate 0.05% topical duloxetine 60 mg PO DAILY losartan 50 mg PO DAILY montelukast 10 mg PO DAILY oxybutynin chloride ER 10 mg PO DAILY piroxicam 10 mg PO DAILY PRN thiamine HCl (vitamin B1) 50 mg PO DAILY vitamin A palmitate 6,000 mcg (2 x 3,000 mcg (10,000 unit)) PO DAILY 2 weeks HPI TV Transfer / Courtney 1ST HPI Details Start time: 12.57m, End time: 1.42pm ?I spent 40 minutes speaking with the patient on the phone plus an additional 5 minutes reviewing and updating records for a total of 45 minutes HPI Comments History of Present Illness Details Overall weight loss: 8.4lbs, or 3.15% TBWL Is doing 2 Premier protein shakes (2 scoops in almond milk), 1 Atkins protein bar, dinner (12 forks of protein and 12 forks of salad or vegetables) Exercise: walking outside REPLACED BY [facility] Medical History (Updated 12/20/23 @ 13:25 by Marc Dean MD) Stress incontinence GERD (gastroesophageal reflux disease) Rheumatoid arthritis Migraines, neuralgic Anxiety Depression Asthma Surgical History [place] teeth removed H/O knee surgery Family History Father Diabetes HTN (hypertension) Hyperlipidemia Mother HTN (hypertension) Osteoporosis Uterine cancer Maternal Grandmother Colon cancer Social History Household Members Other:: partner Housing: House Alcohol intake: current Alcohol intake frequency: 0-2 drinks per day Alcohol type: beer and wine Patient Tobacco Use Status: Former Tobacco user Years Smoked: 5 Current occupational status: employed 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 Plan for lap sleeve gastrectomy. If diaphragmatic or ventral hernias are present at time of surgery, these will be repaired laparoscopically as well. Risks and complications were discussed in detail including possible conversion to an open procedure, anastomotic leak, bleeding requiring transfusion, small bowel obstruction, , DVT and pulmonary embolism, cardiac, or pulmonary complications, as meterman complications such as anastomotic ulcer, insufficient weight loss and vitamin deficiencies. I emphasized the importance of close follow-up, adherence to instructions and good communication. 2. Nutritional counseling. Change nutritional plan to 2 Premier protein shakes per day (ONE scoop each in 8oz almond milk), one Atkins protein bar and dinner (12 forks of protein and 12 forks of salad/vegetables). Meal to include lean meat (beef, fish, pork, turkey, chicken), or nepali yogurt, or egg whites, or beans with a salad with olive oil and fruits (berries, pears, apples, kiwi). Avoid salt, breads, potatoes, rice, pasta, desserts. 3. Each shake would be drunk slowly, like coffee in a period of 2 hours. 4. Cut each bar in 4 pieces and eat each piece in 30min ?to make each bar last 2 hours. 5. I emphasized the importance of measuring accurately the food portion and measure it when serving the food in plate 6. The meal portions include 12 full-size forks of meat and 12 full-size forks of salad. You always eat the meat portion but you can replace up to 6 forks for salad/vegetables with rice, potatoes or pasta, or a fruit ?if you like. The less you do it the better weight loss will be. 7. One full-size fork is what it can be scooped on the fork without falling aside and not what can be bit with the fork. Use regular forks like those you find in a typical restaurant. 8.? Please send me weight measurements weekly on Mondays 9. The best choice would be to purchase a stationary bike at home that can track calories. Let me know if you do so I can give you an exercise plan. 10.?It is important of avoiding and for at least 18 months postoperatively and has been discussed at the infosession. 11. Goal is to lose at least 1.5-2lbs per week 12. Goal to lose 10% of your weight before surgery, which is about 26lbs. Ultimate weight goal: 240lbs before surgery 13. Please follow the diet plan exactly without any change. If you don't like something about the plan or you feel hungry you need to communicate with me so I can help you revise the plan. You should not change the plan yourself. Telehealth Telehealth Location of provider rendering services: practice address Location of patient: address on file Patient Identification confirmed using: Name, : Yes Telehealth method: voice only Patient verbally consented to treatment: Yes Patient verbally consented to billing insurance company: Yes Patient informed of any privacy concerns related to visit: Yes Minutes spent on Phone/Video with Pt.: 45 Coding Level of Care Code Tele Est Pt Level 5 (96981) Diagnoses Morbid obesity E66.01 Time Spent (min) 45
[2023-12-20 13:36] VITALS: BMI 48.8
== END 2023-12-20 13:43 | disposition home or self-care (01) ==
LOC: HO.HBS 08:19
PROVIDERS: PCP Internal Medicine; Visit Provider Surgery
DX: E66.01 Morbid (severe) obesity due to excess calories (principal); Z68.42 Body mass index [BMI] 45.0-49.9, adult
CPT/HCPCS: 99215

== ENCOUNTER → 2023-12-20 08:19 | Outpatient (BNVA) | payer OTHER, SELFPAY | PROVIDERS: PCP Internal Medicine; Visit Provider Surgery ==

== ENCOUNTER 2023-12-28 12:07 | Outpatient (AMB) | payer OTHER, SELFPAY ==
--- NOTE | 2023-12-28 11:46 | MHC.WMTHER ---
Intake Intake Visit Reasons: (TV) BH Intake Allergies amoxicillin [From Augmentin] Adverse Reaction (Verified 12/20/23 13:21) Rash clavulanic acid [From Augmentin] Adverse Reaction (Verified 12/20/23 13:21) Rash Isopropanol buto bicarbonate Allergy (Unknown, Uncoded 12/20/23 13:21) Rash Latex Allergy (Unknown, Uncoded 12/20/23 13:21) Rash Pollen. dustmites, trees, gras Allergy (Unknown, Uncoded 12/20/23 13:21) Itchy Eyes [facility] Medical History (Updated 12/28/23 @ 11:51 by Rina Seth) Stress incontinence GERD (gastroesophageal reflux disease) Rheumatoid arthritis Migraines, neuralgic Anxiety Depression Asthma Surgical History [place] teeth removed H/O knee surgery Family History Father Diabetes HTN (hypertension) Hyperlipidemia Mother HTN (hypertension) Osteoporosis Uterine cancer Maternal Grandmother Colon cancer Social History Household Members Other:: partner Housing: House Alcohol intake: current Alcohol intake frequency: 0-2 drinks per day Alcohol type: beer and wine Patient Tobacco Use Status: Former Tobacco user Years Smoked: 5 Current occupational status: employed 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 She is in therapy with Shayna Donnelly through [facility] for about one year now. Pt stated that she gets helps with anxiety and depression symptoms. hx of depression and some trauma surrounding loss. No history of inpatient psychiatric admissions, no history of alcohol or drug abuse. Presenting Concerns Referral Source provider Reason for referral weight loss surgery evaluation Precipitating Event obesity Living Situation Current Living Situation Rent At risk of losing current housing? No Satisfied with current living situation? Yes Comments Patient is lives with her partner Ricardo. Food/Weight/Diet Expectations of change weight loss and maintenance History/Relationship with food Pt stated that she has been an overeater or maybe a binge eater . She reported drinking large ice coffee with sugar and other flavored sweetener's, barely drank water, bagel, sandwich if she did eat, or pretzels with PB, soups, skipping meals during the day, after work she would order out or eat pasta, cheese or other carbs. She would often eat fast and end up with heartburn. Also would have two beers or two glasses of wine at night as well. Pt reported eating large quantities, loss of control around food and then would feel sick. History/Relationship with weight Patient stated that she has been struggling with her weight since 2000 when she started to live on her own. History/Relationship with dieting [employer] program, custom grinder Binge Eating Do you frequently eat large amounts of food in short periods of time, not feeling physically hungry? Yes Do you feel out of control when you eat a large amount of food in a short period of time? Yes Do you eat large amounts of food rapidly and typically alone? Yes Night Eating Do you wake up at least once during the night to eat? No If you wake up in the night, do you find that it is necessary to eat something in order to fall back asleep? No Do you have little or no appetite in the morning and feel very hungry in the evening, often overeating between dinner and when you go to bed? No Social History Family history and relationship Pt was born and raised in this area by her her mother and step father. her parents when she was 6 months old. She would see her father when he would show up. She has no children. Pt is an only child of her parents but has half and step siblings. 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 none known Education Highest grade completed early childcare education Preferred learning style Auditory, Verbal, Written, Learn by doing and Visual Currently enrolled in educational program? No Interested in further educational program? 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 No Meaningful activities art, reading, TV Financial Situation Describe current financial situation Comfortable Financial assistance? None Service Service? No Mental Health and Addiction Treatment Current/Past substance abuse? No Current/Past addictive behavior concerns? No Medical and Physical Health Summary Physical exam in the last year? Yes Pain Screening Current pain? No Pain in the last few months? No Medications Is the patient compliant with medications? Yes Does the patient have Lambert Guardian in place? Not applicable Does the patient use complimentary health approaches? No Trauma/Abuse History History of trauma? Yes Questionnaires PHQ-9 Over the last 2 weeks, how often have you been bothered by any of the following problems? 1. Little interest or pleasure in doing things: not at all 2. Feeling down, depressed, or hopeless: several days 3. Trouble falling or staying asleep, or sleeping too much: not at all 4. Feeling tired or having little energy: several days 5. Poor appetite or overeating: not at all 6. Feeling bad about yourself - or that you are a failure or have let yourself or your family down: several days 7. Trouble concentrating on things, such as reading the newspaper or watching television: not at all 8. Moving or speaking so slowly that other people could have noticed. Or the opposite - being so fidgety or restless that you have been moving around a lot more than usual: not at all 9. Thoughts that you would be better off or of hurting yourself in some way: not at all Total score: 3 Depression Screening Interpretation: Negative Depression Screening Done: Yes Source: Developed by Drs. Vargas Garcia, Pau Sheriff, Larry Lau and colleagues, with an educational ela from [employer]. Binge Eating Scale Group 1 A. I don't feel self-conscious about my wt. or body size when I'm with others. B. I feel concerned about how I look to others, but it normally does not make me fell disappointed with myself C. I do get self-conscious about my appearance and wt. which makes me feel disappointed in myself. D. I feel very self-conscious about my wt. and frequently I feel intense shame and disgust for myself. I try to avoid social contacts because of my self-consciousness. Response Group 1: D Group 2 A. I don't have any difficulty eating slowly in the proper manner. B. Although I seem to gobble down foods, I don't end up feeling stuffed because of eating to much. C. At times, I tend to eat quickly and then, I feel uncomfortably full afterwards. D. I have the habit of bolting down my food, without really chewing it. When this happens I usually feel uncomfortably stuffed because I've eaten to much. Response Group 2: A Group 3 A. I feel capable to control my eating urges when I want to. B. I feel like I have failed to control my eating more than the average person. C. I feel utterly helpless when it comes to feeling in control of my eating urges. D. Because I feel so helpless about controlling my eating I have become very desperate about trying to get control. Response Group 3: C Group 4 A. I don't have the habit of eating when I'm bored. B. I sometimes eat when I'm bored, but often I'm able to get busy and get my mind off food. C. I have a regular habit of eating when I'm bored, but occasionally, I can use some other activity to get my mind off eating. D. I have a strong habit of eating when I'm bored. Nothing seems to help me breath the habit. Response Group 4: B Group 5 A. I'm usually physically hungry when I eat something. B. Occasionally, I eat something on impulse even though I really am not hungry. C. I have the regular habit of eating foods, that I might not really enjoy, to satisfy a hungry feeling even though physically, I don't need the food. D. Although I'm not physically hungry, I get a hungry feeling in my mouth that only seems to be satisfied when I eat a food, like sandwich, that fills my mouth. Sometimes, when I eat the food to satisfy my mouth hunger, I then spit the food out so I won't gain weight. Response Group 5: B Group 6 A. I don't feel any guilt or self-hate after I overeat. B. After I overeat, occasionally I feel guilt or self-hate. C. Almost all the time I experience strong guilt or self-hate after I overeat. Response Group 6: B Group 7 A. I don't lose total control of my eating when dieting even after periods when I overeat. B. Sometimes when I eat a forbidden food on a diet, I feel like I blew it and eat even more. C. Frequently, I have the habit of saying to myself, I've blown it now, why not go all the way, when I overeat on a diet. When that happens I eat more. D. I have a regular habit of starting a strict diets for myself but I break the diets by going on an eating binge. My life seems to be either a feast or famine. Response Group 7: A Group 8 A. I rarely eat so much food that I feel uncomfortably stuffed afterwards. B. Usually about once a month, I each such a quantity of food, I end up feeling very stuffed. C. I have regular periods during the month when I eat large amounts of food, either at mealtime or at snacks. D. I eat so much food that I regularly feel quite uncomfortable after eating and sometimes a bit nauseous. Response Group 8: A Group 9 A. My level of calorie intake does not go up very high or go down very low on a regular basis. B. Sometimes after I overeat, I will try to reduce my caloric intake to almost nothing to compensate for the excess calories I've eaten. C. I have a regular habit of overeating during the night. It seems that my routine is not to be hungry in the morning but overeat in the evening. D. In my adult years, I have had week-long periods where I practically starve myself. This follows periods when I overeat. It seems I live a life of either feast or famine. Response Group 9: A Group 10 A. I usually am able to stop eating when I want to. I know when enough is enough. B. Every so often, I experience a compulsion to eat which I can't seem to control. C. Frequently, I experience strong urges to eat which I seem unable to control, but at other times I can control my eating urges. D. I feel incapable of controlling urges to eat. I have a fear of not being able to stop eating voluntarily. Response Group 10: A Group 11 A. I don't have any problem stopping eating when I feel full. B. I usually can stop eating when I feel full but occasionally overeat leaving me feeling uncomfortably stuffed. C. I have a problem stopping eating once I start and usually I feel uncomfortably stuffed after I eat a meal. D. Because I have a problem not being able to stop eating when I want, I sometimes have to induce vomiting to relieve my stuffed feeling. Response Group 11: B Group 12 A. I seem to eat just as much when I'm with others, Family social gatherings as when I'm by myself. B. Sometimes, when I'm with other persons, I don't eat as much as I want to eat because I'm self-conscious about my eating. C. Frequently, I eat only a small amount of food when others are present, because I'm very embarrassed about my eating. D. I feel so ashamed about overeating that I pick times to overeat when I know no one will see me. I feel like a closet eater. Response Group 12: A Group 13 A. I eat three meals a day with only an occasional between meal snack. B. I eat 3 meals a day, but I also normally snack between meals. C. When I am snacking heavily, I get in the habit of skipping regular meals. D. There are regular periods when I seem to be continually eating, with no planned meals. Response Group 13: C Group 14 A. I don't think much about trying to control unwanted eating urges. B. At least some of the time, I feel my thoughts are pre-occupied with trying to control my eating urges. C. I feel that frequently I spend much time thinking about how much I ate or about trying not to eat anymore. D. It seems to me that most of my waking hours are pre-occupied by thoughts about eating or not eating. I feel like I'm constantly struggling not to eat. Response Group 14: A Group 15 A. I don't think about food a great deal. B. I have strong craving for food but they last only for brief periods of time. C. I have days when I can't seem to think about anything else but food. D. Most of my days seem to be pre-occupied with thoughts about food. I feel like I live to eat. Response Group 15: A Group 16 A. I usually know whether or not I'm physically hungry. I take the right portion of food to satisfy me. B. Occasionally, I feel uncertain about knowing whether or not I'm physically hungry. A these times it's hard to know how much food I should take to satisfy me. C. Even though I might know how many calories I should eat, I don't have any idea what is a normal amount of food for me. Response Group 16: B Binge Eating Score: 12 Score less than 17 Minimal Risk Score between 18-26 Moderate Risk Score between 27-46 High Risk Assessment & Plan Assessment & Plan (1) Major depressive disorder, recurrent, mild: Code(s): F33.0 - Major depressive disorder, recurrent, mild (2) Morbid obesity: Code(s): E66.01 - Morbid (severe) obesity due to excess calories Plan PHQ-9 was 14 at initial appt for paperwork. Today was 3. She is doing well, should continue with her therapist and as needed with this entry writer. She is cleared for surgery. Telehealth Telehealth Location of provider rendering services: other Location of patient: address on file Patient Identification confirmed using: Name, : Yes Telehealth method: voice only Patient verbally consented to treatment: Yes Patient verbally consented to billing insurance company: Yes Patient informed of any privacy concerns related to visit: Yes Minutes spent on Phone/Video with Pt.: 45 Coding Level of Care Code Tele Psy Diag Eval (27424) Diagnoses Major depressive disorder, recurrent, mild F33.0 Morbid obesity E66.01 Time Spent (min) 45
== END 2023-12-28 12:11 | disposition home or self-care (01) ==
LOC: HO.HBST 12:07
PROVIDERS: PCP Internal Medicine; Visit Provider Counselor Mental Health
DX: F33.0 Major depressive disorder, recurrent, mild (principal); E66.01 Morbid (severe) obesity due to excess calories
CPT/HCPCS: 90791

== ENCOUNTER → 2023-12-28 12:07 | Outpatient (BNVA) | payer OTHER, SELFPAY | PROVIDERS: PCP Internal Medicine; Visit Provider Counselor Mental Health ==

== ENCOUNTER 2023-12-29 06:23 | Day surgery (SDC) | payer OTHER, SELFPAY ==
--- NOTE | 2023-12-27 15:01 | P.CONAN_ITS ---
Documented by User: Ilene Klein NP 12/27/23 15:02 HPI - Anesthesia Eval Consult details Narrative: 48yo F for Upper Endoscopy PMFSH Active Problems Active Problems: All Active Problems (Updated 12/20/23 @ 13:25 by Marc Dean MD) Asthma (Acute) Stress incontinence (Acute) GERD (gastroesophageal reflux disease) (Acute) Rheumatoid arthritis (Acute) Abnormal ECG (Acute) Overactive bladder (Acute) HTN (hypertension), benign (Acute) Hyperlipidemia (Acute) Major depression (Acute) YENNIFER on CPAP (Acute) Morbid obesity (Acute) Cough (Acute) Past Medical History Medical History (Updated 12/28/23 @ 11:51 by Rina Seth) Stress incontinence GERD (gastroesophageal reflux disease) Rheumatoid arthritis Migraines, neuralgic Anxiety Depression Asthma Family History Family History Father Diabetes HTN (hypertension) Hyperlipidemia Mother HTN (hypertension) Osteoporosis Uterine cancer Maternal Grandmother Colon cancer Surgical History Surgical History [place] teeth removed H/O knee surgery Social History Social History Household Members Other:: partner Housing: House Alcohol intake: current Alcohol intake frequency: 0-2 drinks per day Alcohol type: beer and wine Patient Tobacco Use Status: Former Tobacco user Years Smoked: 5 Use of substances other than those prescribed or required for medical reasons: No Are you DNR?: No Advance Directives: No Advance Directives Information Provided: Yes Current occupational status: employed 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 dustmites, trees, Allergy Unknown Itchy Eyes Uncoded 12/20/23 13:21 gras Home Medications Medication Instructions Recorded Confirmed Last Taken Type atorvastatin 40 mg tablet 40 mg PO DAILY 08/02/21 12/20/23 Unknown History betamethasone dipropionate 0.05 % topical 08/02/21 12/20/23 Unknown History lotion duloxetine 60 mg capsule,delayed 60 mg PO DAILY 08/02/21 12/20/23 Unknown History release losartan 50 mg tablet 50 mg PO DAILY 08/02/21 12/20/23 Unknown History montelukast 10 mg tablet 10 mg PO DAILY 08/02/21 12/20/23 Unknown History piroxicam 10 mg capsule 10 mg PO DAILY PRN 08/02/21 12/20/23 Unknown History oxybutynin chloride 10 mg 10 mg PO DAILY 08/14/22 12/20/23 Unknown History tablet,extended release 24 hr albuterol sulfate 90 mcg/actuation 2 puff inhalation Q6H PRN 12/20/23 12/20/23 Unknown History aerosol inhaler Exam Narrative Narrative: EKG 11/2023 Vent. Rate : 075 BPM Atrial Rate : 075 BPM P-R Int : 128 ms QRS Dur : 080 ms QT Int : 396 ms P-R-T Axes : 004 046 023 degrees QTc Int : 442 ms Normal sinus rhythm Nonspecific ST abnormality Abnormal ECG No previous ECGs available Assessment and Plan Assessment Anesthesia Assessment: Chart Reviewed Documented by User: Randy Neely MD 12/29/23 07:09 [facility] Past Medical History Medical History (Updated 12/28/23 @ 11:51 by Rina Seth) Stress incontinence GERD (gastroesophageal reflux disease) Rheumatoid arthritis Migraines, neuralgic Anxiety Depression Asthma Family History Family History Father Diabetes HTN (hypertension) Hyperlipidemia Mother HTN (hypertension) Osteoporosis Uterine cancer Maternal Grandmother Colon cancer Family history of problems with anesthesia: No Surgical History Surgical History [place] teeth removed H/O knee surgery History of Problems with Anesthesia: No Social History Social History Household Members Other:: partner Housing: House Alcohol intake: current Alcohol intake frequency: 0-2 drinks per day Alcohol type: beer and wine Patient Tobacco Use Status: Former Tobacco user Years Smoked: 5 Use of substances other than those prescribed or required for medical reasons: No Are you DNR?: No Advance Directives: No Advance Directives Information Provided: Yes Current occupational status: employed 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 dustmites, trees, Allergy Unknown Itchy Eyes Uncoded 12/20/23 13:21 gras Home Medications Medication Instructions Recorded Confirmed Last Taken Type atorvastatin 40 mg tablet 40 mg PO DAILY 08/02/21 12/20/23 Unknown History betamethasone dipropionate 0.05 % topical 08/02/21 12/20/23 Unknown History lotion duloxetine 60 mg capsule,delayed 60 mg PO DAILY 08/02/21 12/20/23 Unknown History release losartan 50 mg tablet 50 mg PO DAILY 08/02/21 12/20/23 Unknown History montelukast 10 mg tablet 10 mg PO DAILY 08/02/21 12/20/23 Unknown History piroxicam 10 mg capsule 10 mg PO DAILY PRN 08/02/21 12/20/23 Unknown History oxybutynin chloride 10 mg 10 mg PO DAILY 08/14/22 12/20/23 Unknown History tablet,extended release 24 hr albuterol sulfate 90 mcg/actuation 2 puff inhalation Q6H PRN 12/20/23 12/20/23 Unknown History aerosol inhaler Exam Airway Mallampati Class: IV TM Dist: <=3cm Neck ROM: Full Loose/Missing/Broken Teeth: No Heart: rrr Lungs: cta but distant Assessment and Plan Final Anesthetic Review Family History of Problems with Anesthesia: No History of Problems with Anesthesia: No NPO: Yes ASA Class: III Final Preanesthetic Review: No Changes in Pt Med Stat, Meds/Allgs Chart Reviewed, Consent Obtained/Reviewed and Anes Risks/Benef Reviewed Patient Risk: Intermediate Procedure Risk: Intermediate Anesthetic Plan Anesthetic Plan: MAC: Disposition: Standard PACU
[2023-12-29 06:37] VITALS: BMI 49.2
[2023-12-29 06:53] VITALS: BP 125/68; PULSE 75; RESP 16; TEMP 36; O2SAT 95
[2023-12-29 07:04] LABS: UPreg QC Valid YES; Urine Pregnancy NEGATIVE (NEGATIVE)
[2023-12-29] MEDS: Lactated Ringers 1,000 ML 100 ML IVCONT (07:04)
--- NOTE | 2023-12-29 07:40 | MHC.SHP ---
Pre-Procedural Eval Section A - 24 Hr Update-Section A only Date of Service: 12/29/23 The patient is an INPATIENT: No The patient has been examined within 24 hours of the surgical procedure. The History & Physical has been completed within 30 days and I have reviewed it.: Yes Section B - Complete if H&P > 30 days Chief Complaint: Morbid (severe) obesity due to excess calories Details of Present Illness: GERD Relevant Family History (Specify if Yes): No Relevant Social History: None Present Medications: None Medical History: No relevant PMH History of Previous Operations: No relevant previous surgery Allergies: Allergies Allergy/AdvReac Type Severity Reaction Status Date / Time amoxicillin [From Augmentin] AdvReac Rash Verified 12/20/23 13:21 clavulanic acid AdvReac Rash Verified 12/20/23 13:21 [From Augmentin] Isopropanol buto bicarbonate Allergy Unknown Rash Uncoded 12/20/23 13:21 Latex Allergy Unknown Rash Uncoded 12/20/23 13:21 Pollen. dustmites, trees, Allergy Unknown Itchy Eyes Uncoded 12/20/23 13:21 gras Review of Systems Sugical H&P ROS: Negative: Constitution, Cardiovascular, Respiratory, Neurological, Psychiatric, Hem-Onc, Allergic/Immunologic, Gastrointestinal, Genitourinary, Musculoskeletal, Integumentary, Endocrine and Eyes/Ears/Nose/Throat Exam Surgical H&P Exam: Normal: HEENT, Normal: Heart, Normal: Lungs, Normal: Extremities, Normal: Abdomen, Normal: Skin and Normal: Neurological Plan Diagnosis/Plan: Unchanged (EGD to assess the cause of GERD. Risks and complications of bleeding and perforation were discussed) I have reviewed the history and physical and performed a pertinent physical examination on my patient. No changes have occurred unless specified. Time Spent With Patient Time: Total time managing care of this patient today ____ minutes.
--- NOTE | 2023-12-29 08:12 | P.BOP_ITS ---
Brief Operative Note Date of Service: 12/29/23 Pre-op diagnosis: GERD Post-op diagnosis: same (& Diaphragmatic hernia) Procedure: PROCEDURE DATE: 12/29/2023 PREOPERATIVE DIAGNOSIS: GERD POSTOPERATIVE DIAGNOSIS: ?Same as above. 1) small hiatal hernia PROCEDURE: [id number] with biopsies Surgeon: ?Jeb Dean M.D.. Ph.D. Gear Shaper Set Up Operator: None ? Anesthesia: IV sedation Estimated blood loss: ?Minimal FINDINGS AND PROCEDURE: ? OPERATIVE INDICATIONS: ?The patient is a 48 year old female known to me who is interested in bariatric surgery. The patient has GERD. Based on this information I recommended an upper endoscopy to evaluate the patient's symptoms. Risks and complications of the surgery were discussed with the patient in advance particularly the possibility of perforation or bleeding that may require surgical intervention. The patient understood the risks and was in agreement with the plan. ? PROCEDURE: After informed consent was obtained by the patient, the patient was ?transferred to the Operating Room and was placed in the supine position.? After successful induction of IV sedation, a mouth block was inserted and the patient was placed in the left lateral decubitus position. An upper endoscopy was performed next, the oropharynx and esophagus appeared within the normal limits. There was a small 2-3cm hiatal hernia. The z-line was smooth. Two biopsies were obtained from the distal esophagus 2-3 cm proximal to the GE junction and two additional biopsies from the GE junction. The stomach was entered and it appeared to be of normal size. There was no gastritis. There was no stricture or ulcer. A biopsy was obtained from the gastric fundus and antrum. Retroflexion of the scope confirmed the presence of a diaphragmatic hernia. No significant bleeding was noted from any of the biopsy sites. The scope was then advanced into the duodenum which appeared to be normal as well. At that point the duodenum ?and the stomach were decompressed and the scope was withdrawn from the patient's mouth. The patient extubated and was transferred in stable condition to the Recovery Room for further care. I was present and performed all steps of the procedure. There were no residents to assist with this case. Jeb Dean M.D., Ph.D. Surgeon: Marc Dean MD Anesthesia: MAC Was an Gear Shaper Set Up Operator used for this Procedure?: No Estimated blood loss (mL): 0 IV fluids (mL): 400 Urine output (mL): 0 Pathology: other (1) antrum x1, 2) gastric fundus x1, 3) GE junction x2, 4) distal esophagus x2) Condition: stable Disposition: PACU
[2023-12-29 08:16] VITALS: BP 102/62; PULSE 88; RESP 14; TEMP 36.5; O2SAT 100
[2023-12-29 08:31] VITALS: BP 111/58; PULSE 81; RESP 20; TEMP 36.2; O2SAT 97
== END 2023-12-29 09:04 | disposition home or self-care (01) ==
PROVIDERS: Nurse Practitioner; PCP Internal Medicine; Visit Provider Surgery
PROC: 0DJ08ZZ Inspection of Upper Intestinal Tract, Via Natural or Artificial Opening Endoscopic (ICD-10-PCS; CPT 43235; principal; 2023-12-29 07:30)
DX: K21.9 Gastro-esophageal reflux disease without esophagitis (principal); E66.01 Morbid (severe) obesity due to excess calories; Z68.42 Body mass index [BMI] 45.0-49.9, adult; K44.9 Diaphragmatic hernia without obstruction or gangrene; M06.9 Rheumatoid arthritis, unspecified; J45.909 Unspecified asthma, uncomplicated; G43.909 Migraine, unspecified, not intractable, without status migrainosus; N39.3 Stress incontinence (female) (male); F32.A Depression, unspecified; F41.9 Anxiety disorder, unspecified; Z79.899 Other long term (current) drug therapy; Z88.1 Allergy status to other antibiotic agents; Z91.040 Latex allergy status
CPT/HCPCS: 43239; 81025; 88305; 88313; 88342; J2704

== ENCOUNTER → 2023-12-29 06:23 | Outpatient (BNV) | payer OTHER, SELFPAY | PROVIDERS: PCP Internal Medicine; Visit Provider Surgery | DX: K44.9 Diaphragmatic hernia without obstruction or gangrene (principal) | CPT/HCPCS: 43239 ==

== ENCOUNTER 2024-01-11 07:51 | Outpatient (AMB) | payer OTHER, SELFPAY ==
--- NOTE | 2024-01-11 07:53 | MHC.OFFVIS ---
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 dustmites, trees, gras Allergy (Unknown, Uncoded 12/20/23 13:21) Itchy Eyes Is last menstrual period known: Yes (August) HPI HPI Comments History of Present Illness Details She is a premenopausal woman presenting for annual examination. Doing well with no concerns. She tries to eat healthy and stays active with exercise. In the bariatric program. Regular monthly menses. Currently is not sexually active due to partner's issues. She denies vaginal itching and irritation. STI screening offered; she declines. Denies family history of breast, or ovarian cancer. Plans a stool DNA screening with her PCP. Last pap smear 2021, negative. Mammogram: 2022. Enquiring about a lump on her external right thigh. REPLACED BY [facility] Medical History Stress incontinence GERD (gastroesophageal reflux disease) Rheumatoid arthritis Migraines, neuralgic Anxiety Depression Asthma Surgical History [place] teeth removed H/O knee surgery Family History Father Diabetes HTN (hypertension) Hyperlipidemia Mother HTN (hypertension) Osteoporosis Uterine cancer Maternal Grandmother Colon cancer Social History (Updated 01/11/24 @ 08:04 by SATYA Ralhp) Household Members Other:: partner Housing: House Alcohol intake: former Patient Tobacco Use Status: Former Tobacco user Years Smoked: 5 Current occupational status: employed 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 Sexual orientation: Straight/Heterosexual Gender identity: Female Female Reproductive History Menstrual Age of Menarche: 13 Total pregnancies: 0 Date of last pap smear: 08/14/22 (neg pap and hpv) Date of Mammogram: 10/01/23 (Birad 1) Review of Systems Const All systems reviewed & are unremarkable except as noted in HPI and below Reports as per HPI Eyes Reports no additional complaints ENT Reports no additional complaints Card Reports no additional complaints Resp Reports no additional complaints GI Reports as per HPI and Reports no additional complaints Reports as per HPI Musc Reports no additional complaints Skin/Breast Reports as per HPI Neuro Reports no additional complaints Psych Reports no additional complaints Endo Reports no additional complaints Leonides/Lymph Reports no additional complaints Aller/Immun Reports no additional complaints Physical Exam Vital Signs: Last Vital Signs BP 132/86 01/11/24 07:56 BMI result Body Mass Index 47.6 Const General: cooperative, healthy appearing, no acute distress, well developed and alert Orientation/consciousness: patient oriented x3 HEENT Head: Yes normal to inspection Eyes General: appearance normal, both eyes and all related structures Neck Neck: Yes normal visual inspection Thyroid: Thyroid normal Chest Chest palpation & inspection: normal inspection of the chest and other (no puckering, dimpling, peau de orange, retraction, discharge, masses) Breast/axilla inspection: normal inspection of the breasts Breast/axilla palpation: normal palpation of the breasts Resp Effort & Inspection: normal respiratory effort GI Inspection: Yes normal to inspection Palpation (GI): Soft to palpation Rectal Exam - Female: deferred General: Yes bladder normal to palpation External Female Exam: normal external appearance and normal appearance of the urethra Speculum Exam - Vagina: normal appearance of the vagina, normal palpation and normal vaginal discharge Speculum Exam - Cervix: normal appearance of the cervix and normal palpation Bimanual exam- vagina & uterus: normal bimanual exam, normal palpation, uterine size normal, bladder normal to palpation, normal palpation and non-tender Bimanual Exam- Adnexa, other: no masses Skin General skin exam: no rashes or lesions noted Rashes: no rashes Neuro General: patient oriented x3 Cognition (Neuro): normal cognition Extrem Other: Hard lump on external right thigh region General: Yes normal to inspection Psych Attitude: cooperative Thought process: Normal thought process present Assessment & Plan Assessment & Plan (1) Encounter for well woman exam with routine gynecological exam: Code(s): Z01.419 - Encounter for gynecological examination (general) (routine) without abnormal findings Plan Discussed: Current recommendations for pap smears per ASCCP guidelines. Breast awareness and periodic breast exams. Maintain a healthy lifestyle including a well balanced diet and routine exercise. Mammogram yearly. Colonoscopy >45, or at risk sooner-follow up with PCP. Also to speak with PCP regarding the lump on her external right thigh. Patient verbalizes understanding and agrees to the plan of care. She was given opportunity to ask questions and all questions were answered to the best of my ability. 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 This note is constructed using voice recognition software. While every effort has been made to ensure accuracy, lab technologist errors may have been included. Coding Level of Care Code Est Pt Prev Care 40-64y(19186) Diagnoses Encounter for well woman exam with routine gynecological exam Z01.419
[2024-01-11 07:56] VITALS: BP 132/86; BMI 47.6
== END 2024-01-11 08:42 | disposition home or self-care (01) ==
PROVIDERS: PCP Internal Medicine; Visit Provider Advanced Practice Midwife
DX: Z01.419 Encounter for gynecological examination (general) (routine) without abnormal findings (principal)
CPT/HCPCS: 99396

== ENCOUNTER → 2024-01-11 07:51 | Outpatient (BNVA) | payer OTHER, SELFPAY | PROVIDERS: PCP Internal Medicine; Visit Provider Advanced Practice Midwife ==

== ENCOUNTER → 2024-01-20 07:56 | Outpatient (REF) | payer OTHER, SELFPAY ==
--- NOTE | ~2024-01-20 | NM_ITS ---
Myocardial perfusion study Indication: Abnormal EKG to evaluate for myocardial ischemia Technique: The patient was brought in for a Lexiscan perfusion study on 01/20/2024. Patient performed low-level exercise and was injected 0.4 mg of Lexiscan intravenously. Within a minute of injection, 40 mCi of sestamibi was given intravenously. Images were obtained using the SPECT gamma camera interlaced with the gating device. Images were obtained in supine position. Resting perfusion study was performed on 01/24/2024. Patient was administered 40 mCi of sestamibi intravenously at rest. Images were then obtained in supine position. Images obtained with and without CT attenuation. Total DLP 122 mGy-cm. Images were processed with the software and compared side to side in short axis, horizontal long axis and vertical long axis views. Findings: Both stress and rest perfusion study showed intense subdiaphragmatic uptake in the liver as well as the stomach interfering with myocardial uptake. The findings are more severe from the stress perfusion study. There is also evidence of breast attenuation noted on both rest and stress perfusion study The stress perfusion study showed both non attenuated as well as its corrected images show mildly to moderately reduced uptake in all segments of LV myocardium most likely due to extracardiac uptake interfering with myocardial uptake.. The gated study shows normal LV systolic function with visually estimated LVEF of greater than 50%. LV cavity is normal size. The gated study shows systolic wall thickening and contraction of segments. Resting study shows both attenuated as well as non attenuated corrected images show normal uptake of radiotracer in all segments of the cardiac. Gating at rest reveals normal systolic wall motion with ejection fraction at 56%. The findings are consistent with diffusely reduced uptake in all segments of LV myocardium which is unlikely related to ischemia but most likely related to extra cardiac uptake with myocardial uptake. Therefore this Study is nondiagnostic. NM/NM cardiolite stress test Impression: 1. Myocardial perfusion imaging study shows nondiagnostic study, consistent alternative modes of imaging 2. Gated LVEF is 56% 3. Transient ischemic dilatation cannot be assessed EKG is nondiagnostic for ischemia
--- NOTE | 2024-01-20 08:01 | CA_ITS ---
Acquisition Time: 2024-01-20 09:01:40 Total Exercise Time: 00:02:00 Test Indications: PREOP Medications: SEE H Protocol: LEXISCAN Max HR: 098 BPM 56% of Pred: 173 BPM Max BP: 122/078 mmHG Max Work Load: 1.0 METS Pharmacological stress test with Lexiscan injection while sitting and kicking her legs, without anginal symptoms,with isolated PVC, with normotensive response to injection, with nondiagnoisitic EKGs. Aminophylline 75mg IVP given to reverse Lexiscan, Nuclear images pending. Test reviewed with Dr. Dacosta Referred By: Courtney Rosenthal Overread By: Emily Ignacio
--- NOTE | 2024-01-20 08:01 | CA_ITS ---
Transthoracic Echocardiogram Patient (Last, First, Middle): [place] Lay D Gender: Female Date of : 1975 Age: 48 Procedure Date: 01/20/2024 Procedure Type: Transthoracic Echocardiogram Location: OP Height: 154.94 cm Weight: 112.49 kg BSA: 2.07 m2 Heart Rate: bpm Hand Potter: YEYO Carballo MD: Courtney Rosenthal PA-C Survey Operations Director: Gt Dacosta MD Symptoms: R94.31 - Abnormal electrocardiogram [ECG] [EKG] Study Quality: Technically Difficult ECG Rhythm: Sinus Conclusions: - Technically difficult study due to body habitus but overall essentially normal study Findings Procedure Information Contrast agent, definity, is being given per protocol without apparent complications. The patient receives contrast. Left Ventricle Normal left ventricular size, thickness, and systolic function. The visually estimated ejection fraction is between 55-60%. Spectral Doppler is indicative of a normal filling pattern. Right Ventricle Normal right ventricular cavity size and systolic function. Atria The left atrium is normal in size. There is lipomatous hypertrophy of the interatrial septum. There is no evidence of interatrial shunt. The right atrium was not well visualized. Aortic Valve The aortic valve was not well visualized. There is no aortic valve stenosis. There is no aortic valve regurgitation. Mitral Valve Likely normal mitral valve structure and function. There is trace mitral valve regurgitation. There is no mitral valve stenosis. Pulmonic Valve The pulmonic valve was not well visualized. Tricuspid Valve Likely normal tricuspid valve structure and function. There is trace tricuspid valve regurgitation. The right ventricular systolic pressure is normal. The right ventricular systolic pressure is 16 mmHg. Normal right atrial pressure. There is no evidence of pulmonary hypertension. Great Vessels The aorta was not well visualized. The pulmonary artery was not well visualized. Venous The inferior vena cava is normal in size and collapses greater than 50% with inspiration. Pericardium/Pleural The pericardium was not well visualized. Prior Study Comparison No prior study available for comparison. Measurements 2D Linear Measurements IVSd: 0.93 0.6-0.9/0.6-1.0 cm LVIDd: 5.04 3.9-5.3/4.2-5.9 cm LVIDd Index: 2.43 2.4-3.2/2.2-3.1 cm/m2 LVIDs: 3.40 2.0-3.6 cm LVPWd: 0.96 0.7-1.1 cm Ao Root: 2.70 2.1-3.5 cm LA Diam: 3.80 2.7-3.8/3.0-4.0 cm LAIDs Index: 1.84 1.5-2.3 cm/m2 LV Mass: 212.38 67-162/88-224 g LV Mass Index: 102.60 43-95/49-115 g/m2 LVOT Diam: 1.90 3.0+(-)1.3 cm Mitral Valve MV Pk E: 1.14 MV PK A: 0.88 MV Decel Time: 244.00 E/A: 1.30 E'Lateral: 8.92 E'Medial: 8.49 E/E' Med: 13.40 E/E' Lat: 12.80 PHT: 71.00 MVA PHT: 3.10 Decel [place]: 4.66 Aortic Valve AoV Pk Rohan: 1.48 AoV Mn Rohan: 1.06 AoV VTI: 0.33 AoV Pk Grad: 9.00 Aov Mn Grad: 5.00 KATI Cont.VTI: 2.50 LVOT LVOT Pk Rohan: 1.22 LVOT Mn Rohan: 0.95 LVOT VTI: 0.29 LVOT Pk Grad: 6.00 LVOT Mn Grad: 4.00 LVOT Diam: 1.90 LVOT Area: 2.84 Diastolic Function MV Pk E: 1.14 MV Pk A: 0.88 E/A: 1.30 E'Medial: 8.49 E/E' Med: 13.40 E' Laterial: 8.92 E/E' Lat: 12.80 Right Ventricle TAPSE (mm): 28.10 TVS' Rohan: 11.60 Tricuspid Valve TR Pk Rohan: 1.78 TR Pk Grad: 13.00 RA Press: 3.00 RVSP: 16.00 Great Vessels Aorta Ao Root-2D: 2.70 2.0-3.7 cm Ao Asc: 2.80 2.1-3.4 cm Ao Arch: 2.50 Updated in Other Vendor System with Status of Final Gt Dacosta MD electronically signed on 01/21/2024 11:46:22 AM with status of Final
== END ==
LOC: HO.CARD 07:56
PROVIDERS: PCP Internal Medicine; Visit Provider Physician Assistant
DX: R94.31 Abnormal electrocardiogram [ECG] [EKG] (principal); E66.01 Morbid (severe) obesity due to excess calories; G47.33 Obstructive sleep apnea (adult) (pediatric); I10 Essential (primary) hypertension; E78.5 Hyperlipidemia, unspecified
CPT/HCPCS: 78452; 93017; 93306; A9500; J0280; J2785; Q9957

== ENCOUNTER → 2024-01-20 08:01 | Outpatient (BNV) | payer OTHER, SELFPAY | PROVIDERS: PCP Internal Medicine; Visit Provider Nurse Practitioner | DX: Z01.810 Encounter for preprocedural cardiovascular examination (principal) | CPT/HCPCS: 78452; 93016; 93018; 93306; 93320; 93350; 93352 ==

== ENCOUNTER 2024-01-24 08:40 | Outpatient (REF) | payer OTHER, SELFPAY ==
--- NOTE | ~2024-01-24 | FL_ITS ---
EXAMINATION: XR FLUOROSCOPY UPPER GI WITH AIR CLINICAL INFORMATION: Preop evaluation prior to bariatric surgery COMPARISON: None TECHNIQUE: Fluoroscopic air contrast upper GI examination was performed utilizing standard techniques with thin and thick barium and effervescent granules. Numerous spot images were obtained. FINDINGS: Dual and single contrast images of the esophagus demonstrate normal caliber, contour, and mucosal pattern. No evidence of stricture, mass, or ulcerations identified. Esophageal peristalsis is mildly disorganized. Small type I hiatal hernia is present. Significant gastroesophageal reflux is seen up to the thoracic inlet. Dual contrast and single contrast images of the stomach demonstrated normal contour and mucosal pattern without evidence of mass, ulceration, or other abnormality. Contrast freely passed into the gastric antrum and duodenal bulb without delay. Single and air-contrast images of the duodenal bulb demonstrate no abnormality. The duodenal sweep has a normal appearance, course, and mucosal fold appearance. No malrotation. The imaged proximal jejunum has a normal fold pattern and caliber. FLUOROSCOPY TIME: 3 minutes 13 seconds Number of Spot Images: 11 Number of Cine: 10 DOSE AREA PRODUCT: 2628 uGy-m2 (microgray-meter squared) FL/FL upper GI w air IMPRESSION: 1. Mildly disorganized esophageal peristalsis. 2. Small type I hiatal hernia. 3. Significant gastroesophageal reflux. This procedure was performed by Yordan Wiley PA-C, and supervised by Dr. Ignacio
== END 2024-01-24 08:41 | disposition home or self-care (01) ==
LOC: HO.XRAY 08:40
PROVIDERS: PCP Internal Medicine; Visit Provider Physician Assistant
DX: E66.01 Morbid (severe) obesity due to excess calories (principal); E78.5 Hyperlipidemia, unspecified; I10 Essential (primary) hypertension
CPT/HCPCS: 74246

== ENCOUNTER → 2024-01-24 08:41 | Outpatient (BNV) | payer OTHER, SELFPAY | PROVIDERS: PCP Internal Medicine; Visit Provider Physician Assistant Surgical | DX: Z01.818 Encounter for other preprocedural examination (principal); E66.01 Morbid (severe) obesity due to excess calories | CPT/HCPCS: 74246 ==

== ENCOUNTER 2024-01-24 09:08 | Outpatient (AMB) | payer OTHER, SELFPAY ==
--- NOTE | 2024-01-24 13:05 | MHC.OFFVISWM ---
VS Expanded 01/24/24 13:15 Height 5 ft 1 in Weight 246 lb 2 oz BMI 46.5 Body Fat % 63.7 Body Fat Mass 156.8 Fat Free Mass 89.2 Visceral Fat Rating 27 Body Water % 24.9 Body Water Mass 61.4 Basal Metabolic Rate/Score 1,245 Intake Visit Reasons: TV Follow Up SWL Allergies amoxicillin [From Augmentin] Adverse Reaction (Verified 01/11/24 07:59) Rash clavulanic acid [From Augmentin] Adverse Reaction (Verified 01/11/24 07:59) Rash Isopropanol buto bicarbonate Allergy (Unknown, Uncoded 12/20/23 13:21) Rash Latex Allergy (Unknown, Uncoded 12/20/23 13:21) Rash Pollen. dustmites, trees, gras Allergy (Unknown, Uncoded 12/20/23 13:21) Itchy Eyes HPI HPI TV Follow Up SWL: Details: Start time: 1pm, End time: 1.20pm ?I spent 15 minutes speaking with the patient on the phone plus an additional 5 minutes reviewing and updating records for a total of 20 minutes HPI Comments Details: Overall weight loss: 20.6lbs, or 7.72% TBWL Is doing 2 Premier protein shakes (1 scoops each in almond milk), 1 Atkins protein bar, dinner (12 forks of protein and 12 forks of salad or vegetables) Exercise: doing stationary bike x4/week for 50 calories PFSH Medical History Stress incontinence GERD (gastroesophageal reflux disease) Rheumatoid arthritis Migraines, neuralgic Anxiety Depression Asthma Surgical History [place] teeth removed H/O knee surgery Family History Father Diabetes HTN (hypertension) Hyperlipidemia Mother HTN (hypertension) Osteoporosis Uterine cancer Maternal Grandmother Colon cancer Social History (Updated 01/11/24 @ 08:04 by SATYA Ralph) Household Members Other:: partner Housing: House Alcohol intake: former Patient Tobacco Use Status: Former Tobacco user Years Smoked: 5 Current occupational status: employed 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 Sexual orientation: Straight/Heterosexual Gender identity: Female Female Reproductive History Menstrual Age of Menarche: 13 Telehealth Telehealth Telehealth Platform: Telephone Location of provider rendering services: practice address Location of patient: address on file Patient Identification confirmed using: Name, : Yes Telehealth method: voice only Patient verbally consented to treatment: Yes Patient verbally consented to billing insurance company: Yes Patient informed of any privacy concerns related to visit: Yes Minutes spent on Phone/Video with Pt.: 20 Assessment & Plan Assessment & Plan (1) Morbid obesity: Code(s): E66.01 - Morbid (severe) obesity due to excess calories Category: Medical Plan: 1. Excellent progress! Continue same nutritional plan of 2 Premier protein shakes (1 scoops each in almond milk), 1 Atkins protein bar, dinner (12 forks of protein and 12 forks of salad or vegetables) 2. Exercise: continue stationary bike but increase to 7 days per week burning 100 calories, 3 times per week, daily. Goal is to burn 300 calories daily for weekly goal of 2000 calorie burn 3. Continue to send me weight measurements weekly on Mondays
[2024-01-24 13:15] VITALS: BMI 46.5
== END 2024-01-24 13:21 | disposition home or self-care (01) ==
LOC: HO.HBS 09:08
PROVIDERS: PCP Internal Medicine; Visit Provider Surgery
DX: E66.01 Morbid (severe) obesity due to excess calories (principal)
CPT/HCPCS: 99213

== ENCOUNTER 2024-02-18 07:41 | Outpatient (AMB) | payer OTHER, SELFPAY ==
--- NOTE | 2024-02-18 10:21 | A.OFFVIS_ITS ---
VS Expanded 02/18/24 10:26 Height 5 ft 1 in Weight 238 lb BMI 45.0 Body Fat % 61.3 Body Fat Mass 145.9 Fat Free Mass 92 Visceral Fat Rating 26 Body Water % 26.5 Body Water Mass 63 Basal Metabolic Rate/Score 1,271 Intake Visit Reasons: TV Follow Up SWL Allergies amoxicillin [From Augmentin] Adverse Reaction (Verified 01/11/24 07:59) Rash clavulanic acid [From Augmentin] Adverse Reaction (Verified 01/11/24 07:59) Rash Isopropanol buto bicarbonate Allergy (Unknown, Uncoded 12/20/23 13:21) Rash Latex Allergy (Unknown, Uncoded 12/20/23 13:21) Rash Pollen. dustmites, trees, gras Allergy (Unknown, Uncoded 12/20/23 13:21) Itchy Eyes HPI HPI TV Follow Up SWL: Details: Start time: 10.13am, End time: 10.33am ?I spent 15 minutes speaking with the patient on the phone plus an additional 5 minutes reviewing and updating records for a total of 20 minutes HPI Comments Details: Overall weight loss: 28.8lbs, or 10.8% TBWL Is doing 2 Premier protein shakes (1 scoops each in almond milk), 1 Atkins protein bar, dinner (12 forks of protein and 12 forks of salad or vegetables) Exercise: doing stationary bike x7/week for 200 calories PFSH Medical History (Updated 01/31/24 @ 18:29 by Marc Dean MD) Abnormal ECG Stress incontinence GERD (gastroesophageal reflux disease) Rheumatoid arthritis Migraines, neuralgic Anxiety Depression Asthma Surgical History [place] teeth removed H/O knee surgery Family History Father Diabetes HTN (hypertension) Hyperlipidemia Mother HTN (hypertension) Osteoporosis Uterine cancer Maternal Grandmother Colon cancer Social History (Updated 01/11/24 @ 08:04 by SATYA Ralph) Household Members Other:: partner Housing: House Alcohol intake: former Patient Tobacco Use Status: Former Tobacco user Years Smoked: 5 Current occupational status: employed 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 Sexual orientation: Straight/Heterosexual Gender identity: Female Female Reproductive History Menstrual Age of Menarche: 13 Telehealth Telehealth Telehealth Platform: Telephone Location of provider rendering services: practice address Location of patient: address on file Patient Identification confirmed using: Name, : Yes Telehealth method: voice only Patient verbally consented to treatment: Yes Patient verbally consented to billing insurance company: Yes Patient informed of any privacy concerns related to visit: Yes Minutes spent on Phone/Video with Pt.: 20 Assessment & Plan Assessment & Plan (1) Morbid obesity: Code(s): E66.01 - Morbid (severe) obesity due to excess calories Category: Medical Plan: 1. Plan for lap sleeve gastrectomy including upper GI endoscopy. All tests has been completed and reviewed and the patient is cleared for the surgery. ?If diaphragmatic or ventral hernias are present at time of surgery, these will be repaired laparoscopically as well. 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 I emphasized the importance of close follow-up, adherence to instructions and good communication. So far she has proven to be an excellent communicator and very compliant with all our directions accomplishing a great weight loss. I believe that she is an excellent candidate and she is ready. 2. Continue same nutritional plan of emier protein shakes (1 scoops each in almond milk), 1 Atkins protein bar, dinner (12 forks of protein and 12 forks of salad or vegetables). 3. You may replace the half of your salad portion to 6 forks of any fruit you like 4. Exercise: continue stationary bike x7/week but increase to 125 calories per work-out session twice zulma day for 250 calories per day 5. Continue to send me weight measurements weekly
[2024-02-18 10:26] VITALS: BMI 45.0
== END 2024-02-18 10:34 | disposition home or self-care (01) ==
LOC: HO.HBS 07:41
PROVIDERS: PCP Internal Medicine; Visit Provider Surgery
DX: E66.01 Morbid (severe) obesity due to excess calories (principal)
CPT/HCPCS: 99213

== ENCOUNTER → 2024-02-18 07:41 | Outpatient (BNVA) | payer OTHER, SELFPAY | PROVIDERS: PCP Internal Medicine; Visit Provider Surgery ==

== ENCOUNTER 2024-02-25 07:53 | Outpatient (AMB) | payer OTHER, SELFPAY ==
--- NOTE | 2024-02-25 10:50 | MHC.OFFVISWM ---
VS Expanded 02/25/24 10:55 Height 5 ft 1 in Weight 236 lb 2 oz BMI 44.6 Body Fat % 60.7 Body Fat Mass 143.3 Fat Free Mass 92.6 Visceral Fat Rating 26 Body Water % 26.9 Body Water Mass 63.5 Basal Metabolic Rate/Score 1,278 Intake Visit Reasons: TV Pre Op LSG 03/07/24 Allergies amoxicillin [From Augmentin] Adverse Reaction (Verified 02/25/24 10:50) Rash clavulanic acid [From Augmentin] Adverse Reaction (Verified 02/25/24 10:50) Rash Isopropanol buto bicarbonate Allergy (Unknown, Uncoded 02/25/24 10:50) Rash Latex Allergy (Unknown, Uncoded 02/25/24 10:50) Rash Pollen. dustmites, trees, gras Allergy (Unknown, Uncoded 02/25/24 10:50) Itchy Eyes Medication List - Last Reconciled 02/25/24 by Marc Dean MD albuterol sulfate 90 mcg/actuation 2 puffs inhalation Q6H PRN atorvastatin 40 mg PO DAILY betamethasone dipropionate 0.05% topical betamethasone dipropionate 0.05% topical duloxetine 60 mg PO DAILY losartan 50 mg PO DAILY metronidazole 0.75% appl topical montelukast 10 mg PO DAILY ondansetron 4 mg PO Q12H pantoprazole 40 mg PO DAILY polyethylene glycol 3350 17 grams PO DAILY sucralfate 10 mL PO BID thiamine HCl (vitamin B1) 50 mg PO DAILY HPI HPI TV Pre Op LSG 03/07/24: Details: Start time: 10.42am, End time: 11.02am ?I spent 15 minutes speaking with the patient on the phone plus an additional 5 minutes reviewing and updating records for a total of 20 minutes HPI Comments Details: Overall weight loss: 30.6lbs, or 11.47% TBWL Is doing 2 Premier protein shakes (1 scoops each in almond milk), 1 Atkins protein bar, dinner (12 forks of protein and 12 forks of salad or vegetables) Exercise: doing stationary bike x4/week for 50 calories PFSH Medical History (Updated 01/31/24 @ 18:29 by Marc Dean MD) Abnormal ECG Stress incontinence GERD (gastroesophageal reflux disease) Rheumatoid arthritis Migraines, neuralgic Anxiety Depression Asthma Surgical History [place] teeth removed H/O knee surgery Family History Father Diabetes HTN (hypertension) Hyperlipidemia Mother HTN (hypertension) Osteoporosis Uterine cancer Maternal Grandmother Colon cancer Social History (Updated 01/11/24 @ 08:04 by SATYA Ralph) Household Members Other:: partner Housing: House Alcohol intake: former Patient Tobacco Use Status: Former Tobacco user Years Smoked: 5 Current occupational status: employed 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 Sexual orientation: Straight/Heterosexual Gender identity: Female Female Reproductive History Menstrual Age of Menarche: 13 Telehealth Telehealth Telehealth Platform: Telephone Location of provider rendering services: practice address Location of patient: address on file Patient Identification confirmed using: Name, : Yes Telehealth method: voice only Patient verbally consented to treatment: Yes Patient verbally consented to billing insurance company: Yes Patient informed of any privacy concerns related to visit: Yes Minutes spent on Phone/Video with Pt.: 20 Assessment & Plan Assessment & Plan (1) Morbid obesity: Code(s): E66.01 - Morbid (severe) obesity due to excess calories Category: Medical Plan: 1. Plan for lap sleeve gastrectomy including upper GI endoscopy. All tests has been completed and reviewed and the patient is cleared for the surgery. ?If diaphragmatic or ventral hernias are present at time of surgery, these will be repaired laparoscopically as well. Risks and complications were discussed in detail including possible conversion to an open procedure, anastomotic leak, bleeding requiring transfusion, small bowel obstruction, , DVT and pulmonary embolism, cardiac, or pulmonary complications, as medical terminologist complications such as anastomotic ulcer, insufficient weight loss and vitamin deficiencies. I emphasized the importance of close follow-up, adherence to instructions and good communication. So far she has proven to be an excellent communicator and very compliant with all our directions accomplishing a great weight loss. I believe that she is an excellent candidate and she is ready. 2. Preop prescriptions were provided and explained the purpose of each one. Need to be purchased preop. Start Pantoprazole now as you get it from the pharmacy, 1 pill per day. Sucralfate and Zofran are for after surgery as needed. 3. Bowel prep: please do 7 packets ?of Miralax mixing each one with a an 8oz glass of water, crystal light, gatorade zero, or propel ?on 03/05/24 and the same amount on 03/06/24. The Miralax you begin with one packet at a time in 8oz water or crystal light, gatorade zero, or propel ?as early in the day as you can and you do them back to back until you finish them. Continue the protein shakes during? the bowel prep. 4. Needs to purchase 1oz medicine cups . 5. Needs to purchase Children's liquid Tylenol for postop pain control. 6. Avoid aspirin, motrin, Advil, Aleve, Ibuprofen, Naproxyn. Tylenol is OK. 7. She needs to purchase the Celebrate 4:1 protein shakes from the hospital's gift shop. 8. Will do basic preop blood work-up any day between Wednesday08/31/22 and Wednesday09/04/22 fasting for 12 hours and is scheduled to see the Anesthesiologist prior to the day of surgery. 9. Importance of adherence to postop folllow-up and recommendations was underscored and she understands that. 10. Stop food and bars as of tomorrow 02/26/24 and continue with 5 Premier protein shakes (ONE scoop EACH in 8oz almond milk) at 7am-9am, 10am-12pm, 1pm-3pm, 4pm-6pm and at 7pm-9pm 11. No soups, broths or V8 12. The patient's?medical?history has been reviewed and they are considered low risk for post op DVT and therefore DVT prophylaxis is not considered necessary. Travel after surgery was reviewed. The patient has not disclosed any travel plans during the first 30 days after surgery and they have been advised that within the first 30 days after surgery any bus, plane, train or car travel over 2 hours in duration is contraindicated due to the possibility of developing blood clots from immobility. Any travel, needs to include periods of ambulation of 10 minutes in duration every 2 hours.? Patient was instructed to discuss any plans for travel during this period with their bariatric surgeon.? 13. Use your CPAP daily and bring it to the hospital with your mask 14. Please take at the day of surgery the following medications: Only the Losartan based on the following parameters: Check your blood pressure daily in the morning as of tomorrow. If blood pressure is: Below 120/70: don't take the Losartan 121/71 to 135/85: take HALF Losartan Over 136/86: take the whole Losartan pill 15. Stop any control pills and don't use them for one month after surgery 16. Absolutely no smoking or vaping, or marijuana until the surgery and for at least the first 4 weeks. Only nicotine patches are allowed. 17. Send me weight measurements on Wednesday02/28/24 and then on Wednesday03/07/24, the day of surgery before you go to the hospital. 18. Avoid any steroids by mouth for any reason. Let me know if someone prescribes them to you 19. These instructions supersede anything else you read in the handbook, anything you watched in videos or classes or you were told by any other provider. If there is any conflict, you follow the above instructions and nothing else. Orders: Orders Vitamin A Today E66.01 - Morbid (severe) obesity due to excess calories, E78.5 - Hyperlipidemia, unspecified, G47.33 - Obstructive sleep apnea (adult) (pediatric), I10 - Essential (primary) hypertension, J45.909 - Unspecified asthma, uncomplicated Prothrombin Time INR Today E66.01 - Morbid (severe) obesity due to excess calories, E78.5 - Hyperlipidemia, unspecified, G47.33 - Obstructive sleep apnea (adult) (pediatric), I10 - Essential (primary) hypertension, J45.909 - Unspecified asthma, uncomplicated Vitamin B1 Today E66.01 - Morbid (severe) obesity due to excess calories, E78.5 - Hyperlipidemia, unspecified, G47.33 - Obstructive sleep apnea (adult) (pediatric), I10 - Essential (primary) hypertension, J45.909 - Unspecified asthma, uncomplicated Type and Screen Today E66.01 - Morbid (severe) obesity due to excess calories, E78.5 - Hyperlipidemia, unspecified, G47.33 - Obstructive sleep apnea (adult) (pediatric), I10 - Essential (primary) hypertension, J45.909 - Unspecified asthma, uncomplicated Comprehensive Met. Panel Today E66.01 - Morbid (severe) obesity due to excess calories, E78.5 - Hyperlipidemia, unspecified, G47.33 - Obstructive sleep apnea (adult) (pediatric), I10 - Essential (primary) hypertension, J45.909 - Unspecified asthma, uncomplicated TSH reflex Free T4 Today E66.01 - Morbid (severe) obesity due to excess calories, E78.5 - Hyperlipidemia, unspecified, G47.33 - Obstructive sleep apnea (adult) (pediatric), I10 - Essential (primary) hypertension, J45.909 - Unspecified asthma, uncomplicated Hemoglobin A1c Today E66.01 - Morbid (severe) obesity due to excess calories, E78.5 - Hyperlipidemia, unspecified, G47.33 - Obstructive sleep apnea (adult) (pediatric), I10 - Essential (primary) hypertension, J45.909 - Unspecified asthma, uncomplicated Lipid Panel Today E66.01 - Morbid (severe) obesity due to excess calories, E78.5 - Hyperlipidemia, unspecified, G47.33 - Obstructive sleep apnea (adult) (pediatric), I10 - Essential (primary) hypertension, J45.909 - Unspecified asthma, uncomplicated Vitamin B12 Today E66.01 - Morbid (severe) obesity due to excess calories, E78.5 - Hyperlipidemia, unspecified, G47.33 - Obstructive sleep apnea (adult) (pediatric), I10 - Essential (primary) hypertension, J45.909 - Unspecified asthma, uncomplicated C Reactive Protein Today E66.01 - Morbid (severe) obesity due to excess calories, E78.5 - Hyperlipidemia, unspecified, G47.33 - Obstructive sleep apnea (adult) (pediatric), I10 - Essential (primary) hypertension, J45.909 - Unspecified asthma, uncomplicated Partial Thromboplastin Time Today E66.01 - Morbid (severe) obesity due to excess calories, E78.5 - Hyperlipidemia, unspecified, G47.33 - Obstructive sleep apnea (adult) (pediatric), I10 - Essential (primary) hypertension, J45.909 - Unspecified asthma, uncomplicated Vitamin D 25-OH Total Today E66.01 - Morbid (severe) obesity due to excess calories, E78.5 - Hyperlipidemia, unspecified, G47.33 - Obstructive sleep apnea (adult) (pediatric), I10 - Essential (primary) hypertension, J45.909 - Unspecified asthma, uncomplicated Complete Blood Count Auto Diff Today E66.01 - Morbid (severe) obesity due to excess calories, E78.5 - Hyperlipidemia, unspecified, G47.33 - Obstructive sleep apnea (adult) (pediatric), I10 - Essential (primary) hypertension, J45.909 - Unspecified asthma, uncomplicated Ferritin Today E66.01 - Morbid (severe) obesity due to excess calories, E78.5 - Hyperlipidemia, unspecified, G47.33 - Obstructive sleep apnea (adult) (pediatric), I10 - Essential (primary) hypertension, J45.909 - Unspecified asthma, uncomplicated Zinc Today E66.01 - Morbid (severe) obesity due to excess calories, E78.5 - Hyperlipidemia, unspecified, G47.33 - Obstructive sleep apnea (adult) (pediatric), I10 - Essential (primary) hypertension, J45.909 - Unspecified asthma, uncomplicated IRON PROFILE Today E66.01 - Morbid (severe) obesity due to excess calories, E78.5 - Hyperlipidemia, unspecified, G47.33 - Obstructive sleep apnea (adult) (pediatric), I10 - Essential (primary) hypertension, J45.909 - Unspecified asthma, uncomplicated Insulin Today E66.01 - Morbid (severe) obesity due to excess calories, E78.5 - Hyperlipidemia, unspecified, G47.33 - Obstructive sleep apnea (adult) (pediatric), I10 - Essential (primary) hypertension, J45.909 - Unspecified asthma, uncomplicated Medications: New sucralfate 10 mL PO BID 600 mL 2RF K21.9 - Gastro-esophageal reflux disease without esophagitis pantoprazole 40 mg PO DAILY 90 tabs 0RF K21.9 - Gastro-esophageal reflux disease without esophagitis ondansetron Only take one every 12 hours as needed if you have nausea 4 mg PO Q12H 20 tabs 0RF nausea and vomiting R11.0 - Nausea polyethylene glycol 3350 Mix each measuring cup with 8oz of water, Crystal light, or Gatorade zero, or Propel and do 7 measuring cups on 03/05/24 and another 7 measuring cups on 03/06/24 17 grams PO DAILY 238 grams 0RF Z01.818 - Encounter for other preprocedural examination
[2024-02-25 10:55] VITALS: BMI 44.6
== END 2024-02-25 11:03 | disposition home or self-care (01) ==
LOC: HO.HBS 07:53
PROVIDERS: PCP Internal Medicine; Visit Provider Surgery
DX: E66.01 Morbid (severe) obesity due to excess calories (principal)
CPT/HCPCS: 99213

== ENCOUNTER → 2024-02-25 07:53 | Outpatient (BNVA) | payer OTHER, SELFPAY | PROVIDERS: PCP Internal Medicine; Visit Provider Surgery ==

== ENCOUNTER → 2024-02-29 07:19 | Outpatient (BNVA) | payer OTHER, SELFPAY | PROVIDERS: PCP Internal Medicine; Visit Provider Surgery ==

== ENCOUNTER → 2024-03-06 12:35 | Outpatient (REF) | payer OTHER, SELFPAY ==
--- NOTE | 2024-03-06 12:38 | CA_ITS ---
Acquisition Time: 2024-03-06 12:52:32 Total Exercise Time: 00:05:25 Test Indications: Abnormal ECG Medications: ALBUTEROL ATORVASTATIN DULOXETINE LOSARTAN PANTOPRAZOLE SUCRALFATE SINGULAIR Protocol: ABDULAZIZ Max HR: 146 BPM 84% of Pred: 173 BPM Max BP: 148/068 mmHG Max Work Load: 7.0 METS Exercise stress test exercuse 5 min 25 sec of Abdulaziz protocol achieving 82% and 7 METS, with moderate SOB, no chest discomfort, without arrhythmias, with normotensive response to exercise, withdownsloping in leads 2, 3, aVF, and V3-V6 not meeting criteria for ischemia. Echo images obtained by [facility] at rest and immediately post peak exercise. Definity contrast used. Breathing returned to baseline with rest Test reviewed with Dr. Greer. Exercise stress echocardiogram reviewed. At rest, there is normal LVEF and wall motion. With peak exercise, there is appropriate augmentation of wall thickening and contractility. There is normal decrease in end-systolic volumes. Overall, no evidence of ischemia at the attained workload / heart rate. Referred By: Marc Dean Overread By: MIKE GREER
== END ==
LOC: HO.CARD 12:35
PROVIDERS: PCP Internal Medicine; Visit Provider Surgery
DX: R94.31 Abnormal electrocardiogram [ECG] [EKG] (principal)
CPT/HCPCS: 93350; Q9957

== ENCOUNTER → 2024-03-06 12:38 | Outpatient (BNV) | payer OTHER, SELFPAY | PROVIDERS: PCP Internal Medicine; Visit Provider Internal Medicine | DX: R06.02 Shortness of breath (principal) | CPT/HCPCS: 93351; 93352 ==

== ENCOUNTER 2024-03-07 05:36 | Day surgery (SDC) | payer OTHER, SELFPAY ==
[2024-02-28 12:43] VITALS: BMI 43.9
[2024-02-29 07:20] LABS: MANUAL DIFF FLAG NO
[2024-02-29 08:10] LABS: Basophils Percent Auto 0.4 % (0-2); Eosinophils Absolute Auto 0.2 X10*3/uL (0.0-0.4); Eosinophils Percent Auto 2.7 % (0-4); Hematocrit 38.1 % (37.0-47.0); Hemoglobin 12.4 g/dl (12.0-16.0); INTERNATIONAL NORM RATIO 1.1 (0.9-1.1); Imm Gran Abs Auto 0.03 X10*3/uL (0.00-0.03); Imm Gran Pct Auto 0.4 % (0.0-0.4); Lymphocytes Absolute Auto 1.6 X10*3/uL (1.2-4.9); Lymphocytes Percent Auto 21.8 % (20-40); Mean Corpuscular HGB Conc 32.5 g/dl (31.0-35.0); Mean Corpuscular Hemoglobin 28.2 pg (27.0-33.0); Mean Corpuscular Volume 86.8 fL (80.0-98.0); Mean Platelet Volume 10.1 fL (9.4-12.3); Monocytes Absolute Auto 0.6 X10*3/uL (0.1-1.2); Monocytes Percent Auto 7.6 % (2-11); Neutrophils Percent Auto 67.1 % (45-73); Platelet Count 368 X10*3/uL (160-400); Prothrombin Time 12.8 SEC (11.1-13.3); Red Blood Count 4.39 X10*6/uL (4.20-5.50); Red Cell Distribution Width 13.1 % (11.0-16.0); White Blood Count 7.5 X10*3/uL (4.8-10.8)
[2024-02-29 08:13] LABS: Partial Thromboplastin Time 34.3 SEC (26.0-36.8)
[2024-02-29 09:04] LABS: Vitamin B12 571 pg/mL (200-900)
[2024-02-29 09:06] LABS: Alanine Aminotransferase 28 U/L (0-31); Albumin Level 4.2 g/dL (3.5-5.0); Alkaline Phosphatase 80 U/L (39-117); Anion Gap 13 (12-20); Aspartate Amino Transferase 26 U/L (5-31); Bilirubin Total 0.5 mg/dL (0.0-1.0); Blood Urea Nitrogen 13 mg/dL (9-16); C Reactive Protein 0.76 mg/dL (< or = 0.50); Calcium 9.8 mg/dL (8.4-10.2); Carbon Dioxide 26 mmol/L (22-29); Chloride 103 mmol/L (96-108); Cholesterol 164 mg/dL (<200); Creatinine Clr Calc Pharmacy 116.1; Estimated Glomerular Filt Rate > 60; Glucose Random 110 mg/dL (60-115); HDL Cholesterol 36 mg/dL (>40); Iron 60 mcg/dL (30-160); LDL Cholesterol Calculated 104 mg/dL (<100); Percent Iron Saturation 21 % (15-50); Potassium 4.1 mmol/L (3.3-5.1); Sodium 138 mmol/L (135-145); Total Iron Binding Capacity 286 mcg/dL (228-428); Total Protein 7.5 g/dL (6.5-8.0); Triglycerides 120 mg/dL (<150); Unsaturated Iron Binding 226 ug/dL
[2024-02-29 09:08] LABS: Estimated Average Glucose 120 mg/dL; Hemoglobin A1c % 5.8 % (<6.0)
[2024-02-29 09:55] LABS: Ferritin 60 ng/mL (10-250); Insulin 10 uU/mL (2-29); TSH reflex Free T4 0.89 uIU/mL (0.32-4.0); Vitamin D 25-OH Total 34.7 ng/mL (>30)
--- NOTE | 2024-03-03 12:20 | HO.ANESPROP2 ---
Documented by User: Ilene Klein NP 03/06/24 14:37 HPI - Anesthesia Eval Consult details Narrative: 48yo F for Gastrectomy Sleeve,EGD,possible diaphragmatic hernia,possible ventral hernia,possible open Nuc stress unreadable d/t body habitus. ECHO Stress sched for 03/06/24 @ 1230 PMF Active Problems Active Problems: All Active Problems Major depressive disorder, recurrent, mild (Acute) Overactive bladder (Acute) HTN (hypertension), benign (Acute) Hyperlipidemia (Acute) Major depression (Acute) YENNIFER on CPAP (Acute) Morbid obesity (Acute) Cough (Acute) Asthma (Acute) Stress incontinence (Acute) GERD (gastroesophageal reflux disease) (Acute) Rheumatoid arthritis (Acute) Abnormal ECG (Acute) Past Medical History Medical History Hiatal hernia Elevated cholesterol YENNIFER on CPAP HTN (hypertension) Stress incontinence GERD (gastroesophageal reflux disease) Rheumatoid arthritis Abnormal ECG Migraines, neuralgic Anxiety Depression Asthma Family History Family History Father Diabetes HTN (hypertension) Hyperlipidemia Mother HTN (hypertension) Osteoporosis Uterine cancer Maternal Grandmother Colon cancer Family history of problems with anesthesia: No Surgical History Surgical History History of esophagogastroduodenoscopy (EGD) [place] teeth removed H/O knee surgery History of Problems with Anesthesia: No Social History Social History Household Members Other:: partner Housing: House Are you a primary care management associate to a significant other at home: No Do you presently have visiting nurse or other home services: No Alcohol intake: former Patient Tobacco Use Status: Former Tobacco user Tobacco use type: Cigarette Years Smoked: 5 Use of substances other than those prescribed or required for medical reasons: No Have you been hit, kicked, punched, or otherwise hurt by someone within the past year? 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 Sexual orientation: Straight/Heterosexual Gender identity: Female Meds Allergies Allergy/AdvReac Type Severity Reaction Status Date / Time environmental allergies Allergy Intermediate Itchy Eyes Verified 03/07/24 06:06 latex Allergy Intermediate Rash Verified 03/07/24 06:06 amoxicillin [From Augmentin] AdvReac Intermediate Rash Verified 03/07/24 06:06 clavulanic acid AdvReac Intermediate Rash Verified 03/07/24 06:06 [From Augmentin] Isopropanol buto bicarbonate Allergy Intermediate Rash Uncoded 03/07/24 06:06 Home Medications ?Medication ?Instructions ?Recorded ?Confirmed ?Last Taken ?Type atorvastatin 40 mg tablet 40 mg PO BEDTIME 08/02/21 03/07/24 03/06/24 History betamethasone dipropionate 0.05 % 1 appl topical DAILY 08/02/21 02/28/24 Unknown History lotion duloxetine 60 mg capsule,delayed 60 mg PO BEDTIME 08/02/21 03/07/24 03/06/24 History release losartan 50 mg tablet 50 mg PO QAM 08/02/21 03/07/24 03/07/24 History montelukast 10 mg tablet 10 mg PO BEDTIME 08/02/21 03/07/24 03/06/24 History albuterol sulfate 90 mcg/actuation 2 puff inhalation Q6H PRN 12/20/23 02/28/24 Unknown History aerosol inhaler Shortness Of Breath Or Wheezing betamethasone dipropionate 0.05 % 1 appl topical DAILY 01/11/24 02/28/24 Unknown History topical ointment metronidazole 0.75 % topical cream 1 appl topical DAILY 01/11/24 02/28/24 Unknown History pantoprazole 40 mg tablet,delayed 40 mg PO QAM 02/28/24 03/07/24 03/06/24 History release thiamine HCl (vitamin B1) 50 mg 50 mg PO QAM 02/28/24 03/07/24 03/06/24 History tablet Exam Height,Weight and Vital Signs: Height 5 ft 1 in Weight 105.506 kg Pertinent Lab Results Pertinent Lab Results: Laboratory Tests 02/29/24 02/29/24 07:10 07:19 WBC 7.5 RBC 4.39 Hgb 12.4 Hct 38.1 MCV 86.8 MCH 28.2 MCHC 32.5 RDW 13.1 Plt Count 368 MPV 10.1 Immature Gran % (Auto) 0.4 Neut % (Auto) 67.1 Lymph % (Auto) 21.8 Baker % (Auto) 7.6 Eos % (Auto) 2.7 Baso % (Auto) 0.4 Lymph # (Auto) 1.6 Baker # (Auto) 0.6 Eos # (Auto) 0.2 Baso # (Auto) 0.0 Abs Immat Gran (auto) 0.03 Absolute Neuts (auto) 5.0 Absolute Nucleated RBC 0.000 Nucleated RBC % (auto) 0.0 PT 12.8 INR 1.1 APTT 34.3 Sodium 138 Potassium 4.1 Chloride 103 Carbon Dioxide 26 Anion Gap 13 BUN 13 Creatinine 0.67 Estim Creat Clear Calc 116.1 Estimated GFR > 60 Random Glucose 110 Estimat Average Glucose 120 Hemoglobin A1c % 5.8 Insulin Level 10 Calcium 9.8 Iron 60 TIBC 286 % Saturation 21 Unsat Iron Binding 226 Ferritin 60 Total Bilirubin 0.5 AST 26 ALT 28 Alkaline Phosphatase 80 C-Reactive Protein 0.76 H Total Protein 7.5 Albumin 4.2 Triglycerides 120 Cholesterol 164 LDL Cholesterol, Calc 104 H HDL Cholesterol 36 L Vitamin B12 571 25-OH Vitamin D Total 34.7 TSH 0.89 Blood Type A Positive Antibody Screen NEGATIVE Narrative Narrative: EKG 11/2023 Vent. Rate : 075 BPM Atrial Rate : 075 BPM P-R Int : 128 ms QRS Dur : 080 ms QT Int : 396 ms P-R-T Axes : 004 046 023 degrees QTc Int : 442 ms Normal sinus rhythm Nonspecific ST abnormality Abnormal ECG No previous ECGs available ECHO 12/2023 Conclusions: - Technically difficult study due to body habitus but overall essentially normal study NM cardiolite stress test 12/2023 Impression: 1. Myocardial perfusion imaging study shows nondiagnostic study, consistent alternative modes of imaging 2. Gated LVEF is 56% 3. Transient ischemic dilatation cannot be assessed EKG is nondiagnostic for ischemia ECHO Stress 02/2024 Protocol: JEFE Max HR: 146 BPM 84% of Pred: 173 BPM Max BP: 148/068 mmHG Max Work Load: 7.0 METS Exercise stress test exercuse 5 min 25 sec of Jefe protocol achieving 82% and 7 METS, with moderate SOB, no chest discomfort, without arrhythmias, with normotensive response to exercise, withdownsloping in leads 2, 3, aVF, and V3-V6 not meeting criteria for ischemia. Echo images obtained by tech at rest and immediately post peak exercise. Definity contrast used. Breathing returned to baseline with rest Test reviewed with Dr. Cheema. Exercise stress echocardiogram reviewed. At rest, there is normal LVEF and wall motion. With peak exercise, there is appropriate augmentation of wall thickening and contractility. There is normal decrease in end-systolic volumes. Overall, no evidence of ischemia at the attained workload / heart rate. Assessment and Plan Assessment Anesthesia Assessment: Chart Reviewed Final Anesthetic Review Family History of Problems with Anesthesia: No History of Problems with Anesthesia: No Documented by User: Jovana Cazares MD 03/07/24 08:15 [facility] Past Medical History Medical History Hiatal hernia Elevated cholesterol YENNIFER on CPAP HTN (hypertension) Stress incontinence GERD (gastroesophageal reflux disease) Rheumatoid arthritis Abnormal ECG Migraines, neuralgic Anxiety Depression Asthma Family History Family History Father Diabetes HTN (hypertension) Hyperlipidemia Mother HTN (hypertension) Osteoporosis Uterine cancer Maternal Grandmother Colon cancer Surgical History Surgical History History of esophagogastroduodenoscopy (EGD) [place] teeth removed H/O knee surgery Social History Social History Household Members Other:: partner Housing: House Are you a primary care management associate to a significant other at home: No Do you presently have visiting nurse or other home services: No Alcohol intake: former Patient Tobacco Use Status: Former Tobacco user Tobacco use type: Cigarette Years Smoked: 5 Use of substances other than those prescribed or required for medical reasons: No Have you been hit, kicked, punched, or otherwise hurt by someone within the past year? 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 Sexual orientation: Straight/Heterosexual Gender identity: Female Meds Allergies Allergy/AdvReac Type Severity Reaction Status Date / Time environmental allergies Allergy Intermediate Itchy Eyes Verified 03/07/24 06:06 latex Allergy Intermediate Rash Verified 03/07/24 06:06 amoxicillin [From Augmentin] AdvReac Intermediate Rash Verified 03/07/24 06:06 clavulanic acid AdvReac Intermediate Rash Verified 03/07/24 06:06 [From Augmentin] Isopropanol buto bicarbonate Allergy Intermediate Rash Uncoded 03/07/24 06:06 Home Medications ?Medication ?Instructions ?Recorded ?Confirmed ?Last Taken ?Type atorvastatin 40 mg tablet 40 mg PO BEDTIME 08/02/21 03/07/24 03/06/24 History betamethasone dipropionate 0.05 % 1 appl topical DAILY 08/02/21 02/28/24 Unknown History lotion duloxetine 60 mg capsule,delayed 60 mg PO BEDTIME 08/02/21 03/07/24 03/06/24 History release losartan 50 mg tablet 50 mg PO QAM 08/02/21 03/07/24 03/07/24 History montelukast 10 mg tablet 10 mg PO BEDTIME 08/02/21 03/07/24 03/06/24 History albuterol sulfate 90 mcg/actuation 2 puff inhalation Q6H PRN 12/20/23 02/28/24 Unknown History aerosol inhaler Shortness Of Breath Or Wheezing betamethasone dipropionate 0.05 % 1 appl topical DAILY 01/11/24 02/28/24 Unknown History topical ointment metronidazole 0.75 % topical cream 1 appl topical DAILY 01/11/24 02/28/24 Unknown History pantoprazole 40 mg tablet,delayed 40 mg PO QAM 02/28/24 03/07/24 03/06/24 History release thiamine HCl (vitamin B1) 50 mg 50 mg PO QAM 02/28/24 03/07/24 03/06/24 History tablet Exam Airway Mallampati Class: III TM Dist: >3cm Neck ROM: Full Loose/Missing/Broken Teeth: No Heart: RRR Lungs: CTA Assessment and Plan Assessment Anesthesia Assessment: Anesthesia Plan Discussed Final Anesthetic Review NPO: Yes ASA Class: III Final Preanesthetic Review: Meds/Allgs Chart Reviewed, Consent Obtained/Reviewed and Anes Risks/Benef Reviewed Patient Risk: Intermediate Procedure Risk: Intermediate Anesthetic Plan Anesthetic Plan: GA Disposition: Standard PACU
[2024-03-03 13:38] LABS: Zinc 87 mcg/dL (60-130)
[2024-03-04 20:24] LABS: Vitamin A 34 mcg/dL (38-98)
[2024-03-06 06:43] LABS: Vitamin B1 62 nmol/L (8-30)
[2024-03-07] VITALS (12 sets, daily range): BP systolic 132–153; BP diastolic 61–94; PULSE 68–94; RESP 13–18; TEMP 36–36.6; O2SAT 94–100; BMI 43.3
[2024-03-07] MEDS: Lactated Ringers 1,000 ML 999 ML IV (06:26)
[2024-03-07] MEDS: Aprepitant 32 MG/4.4 ML VIAL IVPUSH (06:26)
[2024-03-07] MEDS: Lactated Ringers 1,000 ML 100 ML IVCONT ×3 (06:26→20:02)
--- NOTE | 2024-03-07 06:38 | PC.NURSE ---
[facility] called for CPAP check conf # [id number].
[2024-03-07 06:40] LABS: UPreg QC Valid YES; Urine Pregnancy NEGATIVE (NEGATIVE)
--- NOTE | 2024-03-07 07:39 | PM.OP ---
Brief Operative Note Date of Service: 03/07/24 Pre-op diagnosis: Morbid obesity with comorbidities (see below) Post-op diagnosis: same Procedure: INITIAL PATIENT BMI ON PRESENTATION AT OUR OFFICE: 50.4 kg/m2 LAST BMI BEFORE SURGERY: 44.5 kg/m2 COMORBIDITIES: sleep apnea on CPAP, hypertension, GERD, hyperlipidemia, depression, anxiety, stress incontinence, rheumatoid arthritis, asthma, liver steatosis ?The patient presented to the Weight Management Program with significant obesity that was negatively impacting the patient's comorbidities as listed above.? The program is a phased program with a special focus on preoperative medical weight management to promote substantial weight loss and prepare the patients for the second phase of the program: bariatric surgery. The patient participated in an intensive weekly lifestyle ?intervention and exercise program during which the patient ?has lost between the initial office visit and the last preoperative visit 50.4lbs, or 12.8% of initial actual body weight. It was deemed appropriate for the patient to now have bariatric surgery. In light of the current Covid-19 pandemic and the well documented strong association of obesity and increased risk of worse outcomes if infected with Covid-19 (REFERENCES:https://pubmed.ncbi.nlm.nih.gov/84510636/,?https://pubmed.ncbi.nlm.nih.gov/20843709/), any delay in undergoing bariatric surgery may lead to the patient's worsening health condition and increased?risk of more severe Covid-19 disease if infected. In addition a recent?study from [facility] published in [facility] on 09/22/2021 ([email or web address]) found that, among patients with obesity, substantial weight loss achieved with surgery was associated with improved outcomes of COVID-19 infection. The findings suggest that obesity can be a modifiable risk factor for the severity of COVID-19 infection. In addition, the patient met the BMI-criteria for bariatric surgery based on the BMI on initial presentation. The patient should not be penalized for achieving such weight loss because ?it is not sustainable long-term without surgical intervention and it was achieved in preparation for bariatric surgery ?under my direction and based on my published research ([email or web address] and?[email or web address].soard.org/[email or web address]/pdf) ?that a 10% preoperative weight loss improves long-term weight loss after surgery and reduces perioperative complications.? Insurance carriers such as [facility] have endorsed my recommendations ?and have included in their policies criteria to include a 10% preoperative weight loss requirement. PROCEDURE: Esophago-gastroscopy, laparoscopic lysis of adhesions, laparoscopic sleeve gastrectomy and laparoscopic gastropexy INDICATIONS: This is a 48 year-old female who was electively scheduled for laparoscopic, possibly open sleeve gastrectomy. The risks and complications of the procedure were discussed with the patient in advance, particularly the possibility of ; pulmonary embolism; staple line leak; bleeding; GERD; cardiac, pulmonary, or renal complications; as well as long-term problems such as insufficient weight loss, vitamin deficiency, strictures, or ulcers. The patient understood all the risks, and was in agreement to proceed with surgery. DESCRIPTION OF PROCEDURE: After informed consent was obtained from the patient, the patient was given preoperative antibiotics, and was transferred to the operating room. After successful induction of general anesthesia, pneumatic compression devices were placed on both lower extremities. An upper endoscopy was performed next. The oropharynx and esophagus appeared to be within normal limits. There was no diaphragmatic hernia present. The stomach was entered. Then after all fluid and air were suctioned and the stomach was fully decompressed, the scope was withdrawn and secured in the mid esophagus. The patient was then prepped and draped in the usual sterile manner, and abdominal access was established at the right upper quadrant with the Sherin technique. A 12 mm blunt port was inserted, and the abdomen was insufflated with CO2 to a pressure of 15 mmHg. Under direct visualization, additional ports were placed, specifically two 5 mm Versi-step ports to the left upper quadrant, and a 5 mm Versi-Step port to the right upper quadrant. 1% lidocaine plain was used to infiltrate all port sites as well as all fascia defects. Using the EndoClose suture passer device, I placed a #1 Polysorb tie across the falciform ligament in order to retract it up against the abdominal wall and prevent injury of the ligament with our instruments during the procedure. Following that, the patient was placed in a steep reverse Trendelenburg position. An additional 5 mm port was placed to the right flank for the Mediflex retractor that was used to retract the left lobe of the liver. The gastro-esophageal fat pad was opened with the ultrasonic device (Thunderbeat, Olympus) and the anterior esophagus and hiatus were exposed. The angle of His was opened with the ultrasonic device the fundus of the stomach from any diaphragmatic and splenic attachments. I then opened the gastrocolic ligament between the transverse colon and the greater curvature of the stomach with the ultrasonic device to enter the lesser sac and facilitate the ligation of the short gastric vessels. I started at a mid-point along the greater curvature and using the Thunderbeat, all short gastric vessels were divided all the way to the angle of His until the left samira was completely dissected at its entirety. I then divided the gastro-colic ligament distally to a distance of about 3-4 cm proximal to the pylorus. The stomach was then divided transversely with two Endo KARI-45 purple and four KARI-60 articulating purple loads using the [employer] stapler and loads. Every effort was made that the gastric sleeve had a tubular shape and an even caliber throughout. Once the sleeve resection was completed, the staple line of the gastric sleeve was reinforced with Hemoclips. The resected stomach was retrieved without difficulty from the Sherin port. A gastropexy was then performed in order to prevent postoperative GERD and partial gastric volvulus. Several interrupted 2.0 Surgidac sutures were placed between the sleeve's staple line and the previously divided greater omentum and gastro-colic ligament using the Endo-Stitch device. ?An upper endoscopy was performed. There was no narrowing at the GE junction. The scope was easily advanced all the way to the pylorus which was clearly visualized. There was no narrowing anywhere and the sleeve's caliber was even throughout. The sleeve's staple line was inspected and there was no evidence of ischemia, bleeding or dehiscence. At that point the gastroscope was withdrawn from the patient?s mouth while we were decompressing the bowel and the stomach from any remaining air. I looked into the lesser sac to see how the sleeve was situating and it was situating well. There was no bleeding from the staple line, spleen, or short gastric vessels. The Mediflex retractor was removed, and the undersurface of the liver was inspected and there was no bleeding. The patient was placed in supine position. I closed the fascial defect of the 12 mm port site with a figure of eight #1 Polysorb suture. Then 30cc Ropivacaine plain with 10 mg of Dexamethasone were used to infiltrate the fascial closure as well as all skin incisions. A total of 6ml Zynrelef was applied in the Sherin wound. At this point, the abdomen was deflated, all ports were removed under direct vision, and no bleeding was noted from any of the port sites. The skin incisions were irrigated with saline and were closed with 4-0 absorbable monofilament sutures. Steri-Strips and OpSites were used to cover all incisions. The patient was extubated and was transferred in stable condition to the recovery room for further care. I was present and performed all roberts parts of the procedure. Ms. Polk was the training and development assistant. There were no residents to assist with this case. Jeb Dean MD, PhD, FACS Surgeon: Marc Dean MD Anesthesia: GETA, local and other (TAP block and 6ml Zynrelef) Was an Fitness Specialist used for this Procedure?: No Fitness Specialist: Vanessa Polk Estimated blood loss (mL): 10 IV fluids (mL): 2,800 Urine output (mL): 0 (No Evans to record output) Pathology: other (Stomach) Condition: stable Disposition: PACU
--- NOTE | 2024-03-07 07:43 | P.PNGS_ITS ---
Subjective Subjective Date of Service: 03/08/24 Interval history: Feels well. Mild incisional pain. She is tolerating phase 1 bariatric diet Physical Exam 2 Vital Signs: Vital Signs: Last Vital Signs Temp 97.6 F 03/07/24 06:25 Pulse 77 03/07/24 06:25 Resp 16 03/07/24 06:25 BP 153/94 H 03/07/24 06:25 Pulse Ox 97 03/07/24 06:25 O2 Del Method Room Air 03/07/24 06:25 BMI result Body Mass Index 43.3 GI: Inspection: Yes normal to inspection, Yes incision (clean, dry and intact) and Yes obesity Palpation (GI): Soft to palpation Extrem: Right lower extremity: normal to inspection (no calf tenderness) L eft lower extremity: normal to inspection (no calf tenderness) Objective Data Active Medications Albuterol Sulfate (Albuterol Sulfate (0.083%) 2.5 Mg/3 Ml Vial.Neb) 2.5 mg INHALE ONCE PRN PRN Reason: Shortness of Breath/Wheezing Lactated Ringer's (Lr) 1,000 mls @ 100 mls/hr IVCONT .Q10H [facility] Last Admin: 03/07/24 06:26 Dose: 100 mls/hr Documented By: MCKENZIE Lactated Ringer's (Lr) 1,000 mls @ 999 mls/hr IV .Q1H1M [facility] Stop: 03/07/24 08:00 Last Admin: 03/07/24 06:26 Dose: 999 mls/hr Documented By: MCKENZIE Labs 03/08/24 05:23 03/08/24 05:23 Labs: Laboratory Results - last 24 hr 03/07/24 06:05 Urine Test NEGATIVE Procedures Date of Service Date of Service: 03/08/24 Progress Note: A&P Assessment and plan (1) Morbid obesity: Status: Acute (2) GERD (gastroesophageal reflux disease): Status: Acute (3) Rheumatoid arthritis: Status: Acute (4) Stress incontinence: Status: Acute (5) Asthma: Status: Acute (6) YENNIFER on CPAP: Status: Acute (7) Major depression: Status: Acute (8) Hyperlipidemia: Status: Acute (9) HTN (hypertension), benign: Status: Acute (10) Steatosis, liver: Status: Acute (11) S/P laparoscopic sleeve gastrectomy: Status: Acute (12) Congenital intra-abdominal adhesions: Status: Acute Plan s/p laparoscopic sleeve gastrectomy, lysis of adhesions and gastropexy Doing well Will check am labs and if OK the patient will be discharged home Time Spent With Patient Time: Total time managing care of this patient today ____ minutes. Quality Stroke Does the patient have a stroke diagnosis?: No VTE Prior VTE?: No VTE Risk Level:: Surgical - moderate VTE Device Contraindication: N/A - Device Ordered VTE Drug Contraindication: Treatment Not Indicated
--- NOTE | 2024-03-07 09:34 | PC.NURSE ---
24 hr updated on paper chart.
--- NOTE | 2024-03-07 11:06 | P.DS_ITS ---
DS: Providers Provider Date of Service: 03/08/24 Primary care physician: Gustabo Lee MD DS: Diagnosis Discharge Diagnosis (1) Morbid obesity: Status: Acute (2) GERD (gastroesophageal reflux disease): Status: Acute (3) Rheumatoid arthritis: Status: Acute (4) Stress incontinence: Status: Acute (5) Asthma: Status: Acute (6) YENNIFER on CPAP: Status: Acute (7) Major depression: Status: Acute (8) Hyperlipidemia: Status: Acute (9) HTN (hypertension), benign: Status: Acute (10) Steatosis, liver: Status: Acute DS: Summary Hospital Course Hospital Course: ADMITTING DIAGNOSIS: morbid obesity,?liver steatosis, depression, overactive bladder, HTN, HLD, YENNIFER/CPAP, asthma, stress incontinence, GERD, RA ? DISCHARGE DIAGNOSIS: same, s/p laparoscopic sleeve gastrectomy and gastropexy ? PAST SURGICAL HISTORY:?knee surgery, wisdom teeth ? PROCEDURE: upper endoscopy, laparoscopic sleeve gastrectomy and gastropexy ? DISCHARGE SUMMARY: ? History of Present Illness: ? The patient is a?48 year-old woman with a BMI of? ?43.3 ? kg/m2 and associated co-morbidities as described above. The patient had extensive work-up, lost? ?38.6 ? lbs preoperatively and was electively scheduled for laparoscopic, possible open sleeve gastrectomy and gastropexy. Risks and complications of the surgery were discussed with the patient in advance, particularly the possibility of , pulmonary embolism, anastomotic leak, bleeding, bowel injury, GERD, cardiac, renal or pulmonary complications. The patient understood all the risks and was in agreement with the surgical plan. ? Hospital Course: ? The patient underwent an uneventful laparoscopic sleeve gastrectomy with gastropexy on the day of admission. Postoperatively, the patient was transferred to the surgical floor. The patient received IV Acetaminophen and IV dilaudid for pain control. Patient was started on bariatric phase 1 diet POD #0. On postoperative day one, the patient was feeling well without nausea, vomiting, fevers, or tachycardia. The patient had some mild incisional pain and the abdomen was soft.? ? On the morning of postoperative day one, the patient was continued on 1 ounce of water or ice every half hour. During the day, the patient did fairly well, having some incisional pain, but able to ambulate adequately and to tolerate liquids well. ? Since the patient is doing well, we decided that the patient was ready to be discharged. The patient was given instructions to follow-up with me next week and to call my office for any fever over 101, persistent abdominal pain, nausea, vomiting, GERD, symptoms of DVT such as calf tenderness, or leg swelling, or pulmonary embolism such as chest pain or shortness of breath.? The patient was also instructed to drink 40-60 ounces of liquids per day using the 1-ounce cups. The patient had been given prescriptions for Tylenol for pain, Zofran prn for nausea, and pantoprazole and carafate previously. The patient was encouraged to ambulate and use the incentive spirometer. The patient was allowed to shower, but no baths, and encouraged to stay active at home. All of these instructions were given to the patient personally. All questions were answered and the patient understood all instructions, the instructions were also given to the patient in print. Time Attestation Total time managing care of this patient today: 30 mintues. Discharge Coordination Time (in mins): 30 Quality: Safe Use of Opioids Does Pt have an Active Cancer Diagnosis on the Problem List?: No Quality: Stroke Does the patient have a stroke diagnosis?: No Physical Exam Vital Signs: Vital Signs: Last Vital Signs Temp 97.4 F 03/07/24 10:48 Pulse 88 03/07/24 11:03 Resp 16 03/07/24 11:03 BP 137/77 03/07/24 11:03 Pulse Ox 97 03/07/24 11:03 O2 Del Method Nasal Cannula 03/07/24 11:03 O2 Flow Rate 2 03/07/24 11:03 BMI result Body Mass Index 43.3 DS: Data Data Completed and Pending Pending studies at discharge: Pending at discharge 03/07/24 09:47 Surgical [PTH] Routine Labs on day of discharge: Laboratory Results - last 24 hr 03/07/24 06:05 Urine Test NEGATIVE Discharge Plan Discharge Patient Disposition: Home, Self-Care Referrals: Gustabo Lee MD [Primary Care Provider] - 1 Week Discharge Medications: Continued pantoprazole 40 mg tablet,delayed release (DR/EC) 40 mg PO DAILY@0630 duloxetine 60 mg capsule,delayed release(DR/EC) 60 mg PO BEDTIME betamethasone dipropionate 0.05 % lotion 1 appl topical BID atorvastatin 40 mg tablet 40 mg PO BEDTIME montelukast 10 mg tablet 10 mg PO BEDTIME metronidazole 0.75 % cream 1 appl topical BID albuterol sulfate 90 mcg/actuation HFA aerosol inhaler 2 puff inhalation Q6H PRN (Reason: Shortness Of Breath Or Wheezing) sucralfate 100 mg/mL suspension 10 ml PO BID Qty: 600 2RF ondansetron 4 mg tablet,disintegrating 4 mg PO Q12H Qty: 20 0RF Rx Instructions: Only take one every 12 hours as needed if you have nausea Discontinued thiamine HCl (vitamin B1) 50 mg tablet 50 mg PO QAM losartan 50 mg tablet 50 mg PO QAM polyethylene glycol 3350 17 gram/dose powder 17 g PO DAILY Qty: 238 0RF Rx Instructions: Mix each measuring cup with 8oz of water, Crystal light, or Gatorade zero, or Propel and do 7 measuring cups on 03/05/24 and another 7 measuring cups on 03/06/24 No Action losartan 50 mg tablet 50 mg PO DAILY thiamine HCl (vitamin B1) 50 mg tablet 50 mg PO DAILY baclofen 20 mg tablet 20 mg PO DAILY PRN (Reason: Pain) piroxicam 10 mg capsule 10 mg PO DAILY PRN (Reason: Pain) loratadine [Claritin] 10 mg Tablet 10 mg PO DAILY multivit with min-folic acid [Multivitamin Gummies] 200 mcg Tablet,Chewable 1 tab PO DAILY Discharge Orders: Discharge Order (Routine); Ordered 03/08/24 Ordered By: Marc Dean Activity on Discharge: No heavy lifting Activity Restrictions/Additional Instructions: No tub baths, sex or returning to work until discussed at first post op appointment. No alcohol, tobacco or illegal drug use. Continue to use incentive spirometer hourly while awake. Walk in home for 5- 10 minutes every 2 hours during the first week. Wear abdominal binder with activity. Follow all meal plan instructions from your bariatric surgeon. Review bariatric handbook and call with any questions. Discharge Instructions 1. Please call your doctor or come back to the emergency room should any new symptoms arise. 2. Activity: abstain from alcohol,? limited stair climbing, no bending, no driving, no exercise, no illicit substances, no lifting, no sex, no tub bath, no work. 4. Diet: follow your bariatric surgeons recommendations for advancing diet. 5. Dressing Change/Wound Care: Your incisions are covered with waterproof dressings. You can shower with these and pat dry. Do not rub over dressings or incisions. If the area is tender, you may apply an ice pack for short intervals (no more than 20 minutes on, followed by at least 20 minutes off). Do not apply heat. Do not use creams, lotions, or topical antibiotics unless instructed to do so by your surgeon. 6. Call your doctor if: - Your temperature exceeds 101.5 F - You experience excessive pain or swelling - You have an unexpected reaction to medication - You have excessive bleeding - You experience continued vomiting/nausea - Your incision begins to separate - Your incision shows signs of infection such as increased redness, swelling, excessive pain, heat, or drainage (light blood or clear fluid is normal) General instructions: No lifting greater than 10 lbs for the next 6 weeks[address] driving within 24 hours of taking narcotic pain medications. If you do not move your bowels in the next 2 days, please take milk of magnesia over the counter. Please follow the post op diet and do not advance your diet until you are seen in the office in about 2 weeks. Please walk around your home every hour or two to prevent blood clots from forming in your legs. You do not need to wake from sleeping to walk. Please sleep in a bed or couch to prevent kinking at the hips and knees. Please take your incentive spirometer (your lung wire winding machine tender) home with you and use it for the next few days to prevent pneumonias. You may shower, no hot tubs, baths or swimming pools. Please call the office with any questions or concerns such as increasing abdominal pain, fever, chills, shortness of breath, chest pain, leg pain or swelling, or redness or drainage from your incisions. Please make sure you are consuming 40-60 ounces of total fluids per day. Avoid all carbonation. Do not hesitate to contact the office with any questions at . The patient's medical history has been reviewed and they are considered low risk for post op DVT and therefore DVT prophylaxis is not considered necessary. Travel after surgery was reviewed. The patient has not disclosed any travel plans during the first 30 days after surgery and they have been advised that within the first 30 days after surgery any bus, plane, train or car travel over 2 hours in duration is contraindicated due to the possibility of developing blood clots from immobility. Any travel, needs to include periods of ambulation of 10 minutes in duration every 2 hours.? The patient was instructed to discuss any plans for travel during this period with their bariatric surgeon. Print Language: British Discharge Date/Time: 03/08/24 08:58
[2024-03-07 11:47] LABS: Hematocrit 37.2 % (37.0-47.0); Hemoglobin 12.1 g/dl (12.0-16.0)
[2024-03-07 11:58] LABS: Anion Gap 14 (12-20); Blood Urea Nitrogen 13 mg/dL (9-16); Calcium 9.5 mg/dL (8.4-10.2); Carbon Dioxide 23 mmol/L (22-29); Chloride 104 mmol/L (96-108); Creatinine Clr Calc Pharmacy 115.1; Estimated Glomerular Filt Rate > 60; Glucose Random 156 mg/dL (60-115); Sodium 137 mmol/L (135-145)
--- NOTE | 2024-03-07 12:23 | PHA.MEDREC ---
Pharmacy Consult ? Medication Reconciliation Pharmacy has completed the medication reconciliation. Confirmed meds with patient while at bedside. She took sucralfate 100mg/ml solutions for her surgery today and was not sure if she is gonna be continuing this or not.
[2024-03-07] MEDS: Acetaminophen 1,000 MG/100 ML PIGGYBACK 16.7 MG IV ×2 (15:01→20:00)
[2024-03-07] MEDS: Atorvastatin Calcium 40 MG TABLET PO (19:59)
[2024-03-07] MEDS: Montelukast Sodium 10 MG TABLET PO (20:00)
[2024-03-07] MEDS: DULoxetine HCl 60 MG CAPSULE.DR PO (20:00)
[2024-03-07] MEDS: Famotidine/PF 20 MG/2 ML VIAL IVPUSH (20:02)
[2024-03-07] MEDS: 0.9 % Sodium Chloride Flush 3 ML SYRINGE IVFLUSH (20:03)
[2024-03-08] MEDS: Acetaminophen 1,000 MG/100 ML PIGGYBACK 16.7 MG IV (01:24)
[2024-03-08 03:57] VITALS: BP 138/62; PULSE 65; RESP 16; TEMP 37.1; O2SAT 96
[2024-03-08] MEDS: Lactated Ringers 1,000 ML 100 ML IVCONT (05:41)
[2024-03-08 05:50] LABS: MANUAL DIFF FLAG NO
[2024-03-08 05:53] LABS: Basophils Percent Auto 0.1 % (0-2); Hematocrit 34.8 % (37.0-47.0); Hemoglobin 11.4 g/dl (12.0-16.0); Imm Gran Abs Auto 0.03 X10*3/uL (0.00-0.03); Imm Gran Pct Auto 0.3 % (0.0-0.4); Lymphocytes Absolute Auto 1.1 X10*3/uL (1.2-4.9); Mean Corpuscular HGB Conc 32.8 g/dl (31.0-35.0); Mean Corpuscular Hemoglobin 28.4 pg (27.0-33.0); Mean Corpuscular Volume 86.6 fL (80.0-98.0); Mean Platelet Volume 10.1 fL (9.4-12.3); Monocytes Absolute Auto 0.8 X10*3/uL (0.1-1.2); Neutrophils Absolute Auto 8.5 x10*3/uL (2.0-8.3); Neutrophils Percent Auto 81.6 % (45-73); Platelet Count 358 X10*3/uL (160-400); Red Blood Count 4.02 X10*6/uL (4.20-5.50); Red Cell Distribution Width 13.5 % (11.0-16.0); White Blood Count 10.5 X10*3/uL (4.8-10.8)
[2024-03-08 06:13] LABS: Anion Gap 12 (12-20); Blood Urea Nitrogen 9 mg/dL (9-16); Calcium 9.6 mg/dL (8.4-10.2); Carbon Dioxide 24 mmol/L (22-29); Chloride 104 mmol/L (96-108); Creatinine Clr Calc Pharmacy 115.1; Estimated Glomerular Filt Rate > 60; Glucose Random 109 mg/dL (60-115); Potassium 4.1 mmol/L (3.3-5.1); Sodium 136 mmol/L (135-145)
[2024-03-08 07:09] VITALS: BP 136/65; PULSE 70; RESP 16; TEMP 36.6; O2SAT 98
[2024-03-08] MEDS: Famotidine/PF 20 MG/2 ML VIAL IVPUSH (07:10)
[2024-03-08 08:15] VITALS: O2SAT 98
--- NOTE | 2024-03-08 09:03 | MHC.CM.PN ---
Patient dc'd home self care prior to CM assessment.
--- NOTE | 2024-03-08 15:28 | HO.POSTANES ---
Post Anesthesia Evaluation Post Anesthesia Evaluation Date of Service: 03/08/24 Vital Signs: Vital Signs Temp Pulse Resp BP Pulse Ox O2 Del Method 03/08/24 08:15 98 Room Air 03/08/24 07:09 97.8 F 70 16 136/65 98 Room Air 03/08/24 03:57 98.7 F 65 16 138/62 96 Room Air Anesthesia: General Endotracheal-GETA Mental Status: Awake Nausea/Vomiting: None Anesthesia-Related Issues: No Anes. Related Issues
== END 2024-03-08 08:58 | disposition home or self-care (01) ==
LOC: HO.SSS 11:04 → HO.S3 11:07
PROVIDERS: Nurse Practitioner; Physician Assistant Surgical; PCP Internal Medicine; Visit Provider Surgery
PROC: (CPT 43845; principal; 2024-03-07 07:30)
DX: E66.01 Morbid (severe) obesity due to excess calories (principal); Z68.41 Body mass index [BMI] 40.0-44.9, adult; K21.9 Gastro-esophageal reflux disease without esophagitis; I10 Essential (primary) hypertension; K76.0 Fatty (change of) liver, not elsewhere classified; M06.9 Rheumatoid arthritis, unspecified; N39.3 Stress incontinence (female) (male); J45.909 Unspecified asthma, uncomplicated; F32.9 Major depressive disorder, single episode, unspecified; E78.5 Hyperlipidemia, unspecified; G47.33 Obstructive sleep apnea (adult) (pediatric); Z79.899 Other long term (current) drug therapy; Z99.89 Dependence on other enabling machines and devices
CPT/HCPCS: 43775; 43659; 36415; 80048; 80053; 80061; 81025; 82306; 82607; 82728; 83036; 83525; 83540; 84425; 84443; 84590; 84630; 85014; 85018; 85025; 85610; 85730; 86140; 86850; 86900; 86901; 88304; 88305; 88307; 88342; A4649; C9088; C9145; J0131; J1100; J1170; J1956; J2250; J2371; J2405; J2704; J2795; J3010; J7120

== ENCOUNTER → 2024-03-07 05:36 | Outpatient (BNV) | payer OTHER, SELFPAY | PROVIDERS: PCP Internal Medicine; Visit Provider Surgery | DX: E66.01 Morbid (severe) obesity due to excess calories (principal); Z68.41 Body mass index [BMI] 40.0-44.9, adult; Z98.84 Bariatric surgery status | CPT/HCPCS: 43659; 43775; 99024; 99499 ==

== ENCOUNTER 2024-03-14 10:27 | Outpatient (AMB) | payer OTHER, SELFPAY ==
--- NOTE | 2024-03-14 11:07 | A.OFFVIS_ITS ---
VS Expanded 03/14/24 11:22 BP 145/79 H Blood Pressure Location Rt brachial Blood Pressure Position Sitting Pulse 98 Pulse Source Pulse Oximeter Temp 98.1 F Temperature Source Temporal Artery Scan Pulse Oximetry 97 Oxygen Delivery Method Room Air Height 5 ft 1 in Weight 218 lb BMI 41.2 Body Fat % 45.5 Body Fat Mass 99.2 Fat Free Mass 118.6 Visceral Fat Rating 13.0 Body Water % 84.6 Body Water Mass 112.6 Muscle Mass/Score 1,670 Intake Visit Reasons: (OV) PO LSG 03/07/24 Allergies environmental allergies Allergy (Intermediate, Verified 03/14/24 11:17) Itchy Eyes latex Allergy (Intermediate, Verified 03/14/24 11:17) Rash amoxicillin [From Augmentin] Adverse Reaction (Intermediate, Verified 03/14/24 11:17) Rash clavulanic acid [From Augmentin] Adverse Reaction (Intermediate, Verified 03/14/24 11:17) Rash Isopropanol buto bicarbonate Allergy (Intermediate, Uncoded 03/07/24 06:06) Rash HPI Comments Details: 48-year-old female returns to the office today in follow-up. She is 7 days post sleeve gastrectomy performed on 03/07/2024. She is tolerating 3 celebrate 4 in 1 shakes with 1 scoop each and approximately 40 oz of fluid. She has not yet moved her bowels. She has been checking her blood pressure at home with readings 1 teens over 60s to 70s and no longer taking losartan. She did have 1 episode of lightheadedness without syncope yesterday. She had been out at a supermarket an felt better after having a sip of fluids. [facility] Medical History Hiatal hernia Elevated cholesterol YENNIFER on CPAP HTN (hypertension) Stress incontinence GERD (gastroesophageal reflux disease) Rheumatoid arthritis Abnormal ECG Migraines, neuralgic Anxiety Depression Asthma Surgical History History of esophagogastroduodenoscopy (EGD) [place] teeth removed H/O knee surgery Family History Father Diabetes HTN (hypertension) Hyperlipidemia Mother HTN (hypertension) Osteoporosis Uterine cancer Maternal Grandmother Colon cancer Social History Household Members: Spouse Household Members Other:: partner Housing: House Are you a primary neonatal intensive care nurse to a significant other at home: No Do you presently have visiting nurse or other home services: No Alcohol intake: former Patient Tobacco Use Status: Former Tobacco user Tobacco use type: Cigarette Years Smoked: 5 Current occupational status: employed 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 Sexual orientation: Straight/Heterosexual Gender identity: Female Female Reproductive History Menstrual Age of Menarche: 13 Physical Exam Vital Signs: Last Vital Signs Temp 98.1 F 03/14/24 11:22 Pulse 98 03/14/24 11:22 BP 145/79 H 03/14/24 11:22 Pulse Ox 97 03/14/24 11:22 Oxygen Delivery Method Room Air 03/14/24 11:22 BMI result Body Mass Index 41.2 GI Inspection: Yes incision (Clean, dry, intact.) Assessment & Plan Assessment & Plan (1) S/P laparoscopic sleeve gastrectomy: Code(s): Z98.84 - Bariatric surgery status Category: Surgical Plan: POD 7 s/p LSG on 03/07/[address] Dean Weight loss prior to surgery was 35.9 pounds or 13.4 % TBWL. Original weight on 11/24/2023 was 268 pounds and op weight was 232.1 pounds. Be sure to text Dr Dean exactly 1 week after surgery your weight from your home scale so he can adjust your meal plan. Continue meal plan until f/u w Vanessa in 2 weeks May shower, no submersion in bath for another week Continue abdominal binder with activity and exercise for the next 2 weeks. Exercise prior to surgery was stationary bike and may resume No abdominal exercises for 6 weeks post operatively Will be emailed link to post op video for review Reminded of the pace of drinking, 2 mL per minute, 1 oz/15 min. Add Colace 100 mg twice a day. Encouraged to increase her water as she is able to 50-60 oz per day of fluids including her shakes No longer taking losartan as blood pressure has been 1 teens over 60s to 70s Medications: New docusate sodium (Colace) 100 mg PO BID 60 caps 2RF
[2024-03-14 11:22] VITALS: BP 145/79; PULSE 98; TEMP 36.7; O2SAT 97; BMI 41.2
== END 2024-03-14 11:37 | disposition home or self-care (01) ==
PROVIDERS: PCP Internal Medicine; Visit Provider Physician Assistant Surgical
DX: Z98.84 Bariatric surgery status (principal)
CPT/HCPCS: 99024

== ENCOUNTER → 2024-03-14 10:27 | Outpatient (BNVA) | payer OTHER, SELFPAY | PROVIDERS: PCP Internal Medicine; Visit Provider Physician Assistant Surgical ==

== ENCOUNTER 2024-03-28 08:45 | Outpatient (AMB) | payer OTHER, SELFPAY ==
--- NOTE | 2024-03-28 08:48 | MHC.OFFVISWM ---
VS Expanded 03/28/24 08:57 BP 148/70 H Blood Pressure Location Rt brachial Blood Pressure Position Sitting Pulse 86 Pulse Source Pulse Oximeter Temp 98.0 F Temperature Source Temporal Artery Scan Pulse Oximetry 95 Oxygen Delivery Method Room Air Height 5 ft 1 in Weight 220 lb BMI 41.6 Body Fat % 42.4 Body Fat Mass 93.2 Fat Free Mass 126.6 Visceral Fat Rating 13.0 Body Water % 41.0 Body Water Mass 90.2 Muscle Mass/Score 120.2 Basal Metabolic Rate/Score 1,759 Intake Visit Reasons: (OV) PO LSG 03/07/24 Allergies environmental allergies Allergy (Intermediate, Verified 03/28/24 08:50) Itchy Eyes latex Allergy (Intermediate, Verified 03/28/24 08:50) Rash amoxicillin [From Augmentin] Adverse Reaction (Intermediate, Verified 03/28/24 08:50) Rash clavulanic acid [From Augmentin] Adverse Reaction (Intermediate, Verified 03/28/24 08:50) Rash Isopropanol buto bicarbonate Allergy (Intermediate, Uncoded 03/07/24 06:06) Rash Medication List - Last Reconciled 03/28/24 by HERMAN Coyle albuterol sulfate 90 mcg/actuation 2 puffs inhalation Q6H PRN atorvastatin 40 mg PO BEDTIME betamethasone dipropionate 0.05% 1 appl topical BID docusate sodium (Colace) 100 mg PO BID duloxetine 60 mg PO BEDTIME loratadine (Claritin) 10 mg PO DAILY losartan 50 mg PO DAILY metronidazole 0.75% 1 appl topical BID montelukast 10 mg PO BEDTIME multivit with min-folic acid 200 mcg (Multivitamin Gummies) 1 tab PO DAILY pantoprazole 40 mg PO DAILY@0630 sucralfate 10 mL PO BID HPI Comments Details: This?is a?48?yo female who is s/p LSG 03/07/2024. Presents for 3 week post op visit. No complaints of nausea, emesis, abdominal pain or reflux. Taking Colace for constipation. Was without a menstrual cycle for 6 months, got a period the weekend after surgery. Weight is up 2lbs but body composition. Pt denies going off plan. Reports hair loss has started. Pt checking BP at home and reports readings are good. Takes half losartan tablet if elevated. Present meal plan includes: 2 Celebrate 4:1 shakes with 2 scoops in UA Premier 1 scoop in [facility] Atkins bar Exercise routine includes: 300 devonte/day, 150 on bike in each AM and PM [facility] Medical History Hiatal hernia Elevated cholesterol YENNIFER on CPAP HTN (hypertension) Stress incontinence GERD (gastroesophageal reflux disease) Rheumatoid arthritis Abnormal ECG Migraines, neuralgic Anxiety Depression Asthma Surgical History History of esophagogastroduodenoscopy (EGD) [place] teeth removed H/O knee surgery Family History Father Diabetes HTN (hypertension) Hyperlipidemia Mother HTN (hypertension) Osteoporosis Uterine cancer Maternal Grandmother Colon cancer Social History Household Members: Spouse Household Members Other:: partner Housing: House Are you a primary care connector to a significant other at home: No Do you presently have visiting nurse or other home services: No Alcohol intake: former Patient Tobacco Use Status: Former Tobacco user Tobacco use type: Cigarette Years Smoked: 5 Current occupational status: employed 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 Sexual orientation: Straight/Heterosexual Gender identity: Female Female Reproductive History Menstrual Age of Menarche: 13 Physical Exam Vital Signs: Last Vital Signs Temp 98.0 F 03/28/24 08:57 Pulse 86 03/28/24 08:57 BP 148/70 H 03/28/24 08:57 Pulse Ox 95 03/28/24 08:57 Oxygen Delivery Method Room Air 03/28/24 08:57 BMI result Body Mass Index 41.6 Assessment & Plan Assessment & Plan (1) S/P laparoscopic sleeve gastrectomy: Code(s): Z98.84 - Bariatric surgery status Category: Medical (2) HTN (hypertension), benign: Code(s): I10 - Essential (primary) hypertension Category: Medical (3) Morbid obesity: Code(s): E66.01 - Morbid (severe) obesity due to excess calories Category: Medical Plan Reviewed Tanita measurements; pt has lost fat. Will continue meal plan per Dr. Stevens and send weekly measurements. May take biotin if desired. Reviewed no heavy lifting or core work until 6w postop. Binder for comfort. Continue to monitor BP closely and follow parameters for med dosing. RTC 2 weeks, provided my cell # to pt and encouraged her to reach out with any concerns. Patient is morbidly obese and is not considered stable at this time. I spent a total of 30 minutes reviewing/updating records, examining the patient and counseling the patient on weight management as detailed above.
[2024-03-28 08:57] VITALS: BP 148/70; PULSE 86; TEMP 36.7; O2SAT 95; BMI 41.6
== END 2024-03-28 09:31 | disposition home or self-care (01) ==
PROVIDERS: PCP Internal Medicine; Visit Provider Physician Assistant Surgical
DX: E66.01 Morbid (severe) obesity due to excess calories (principal); Z68.41 Body mass index [BMI] 40.0-44.9, adult; Z98.84 Bariatric surgery status; I10 Essential (primary) hypertension
CPT/HCPCS: 99024

== ENCOUNTER → 2024-03-28 08:45 | Outpatient (BNVA) | payer OTHER, SELFPAY | PROVIDERS: PCP Internal Medicine; Visit Provider Physician Assistant Surgical ==

== ENCOUNTER 2024-04-11 11:12 | Outpatient (AMB) | payer OTHER, SELFPAY ==
--- NOTE | 2024-04-11 11:21 | A.OFFVIS_ITS ---
VS Expanded 04/11/24 11:27 BP 128/74 Blood Pressure Location Rt brachial Blood Pressure Position Sitting Pulse 74 Pulse Source Pulse Oximeter Temp 97.0 F Temperature Source Tympanic Pulse Oximetry 98 Oxygen Delivery Method Room Air Height 5 ft 1 in Weight 214 lb 9.6 oz BMI 40.5 Body Fat % 42.1 Body Fat Mass 88.4 Fat Free Mass 124.2 Visceral Fat Rating 12.0 Body Water % 42.1 Body Water Mass 88.4 Muscle Mass/Score 118.0 Basal Metabolic Rate/Score 1,724 Intake Visit Reasons: (OV) PO LSG 03/07/24 Allergies environmental allergies Allergy (Intermediate, Verified 03/28/24 08:50) Itchy Eyes latex Allergy (Intermediate, Verified 03/28/24 08:50) Rash amoxicillin [From Augmentin] Adverse Reaction (Intermediate, Verified 03/28/24 08:50) Rash clavulanic acid [From Augmentin] Adverse Reaction (Intermediate, Verified 03/28/24 08:50) Rash Isopropanol buto bicarbonate Allergy (Intermediate, Uncoded 03/07/24 06:06) Rash Medication List - Last Reconciled 04/11/24 by HERMAN Coyle albuterol sulfate 90 mcg/actuation 2 puffs inhalation Q6H PRN atorvastatin 40 mg PO BEDTIME betamethasone dipropionate 0.05% 1 appl topical BID docusate sodium (Colace) 100 mg PO BID duloxetine 60 mg PO BEDTIME loratadine (Claritin) 10 mg PO DAILY losartan 50 mg PO DAILY metronidazole 0.75% 1 appl topical BID montelukast 10 mg PO BEDTIME multivit with min-folic acid 200 mcg (Multivitamin Gummies) 1 tab PO DAILY pantoprazole 40 mg PO DAILY@0630 sucralfate 10 mL PO BID HPI Comments Details: This?is a?48?yo female who is s/p LSG 03/07/2024. Presents for 5 week post op visit. Weight at last visit on 03/28/2024 was 220 pounds with a BMI of 41.6, weight today is 214.6 pounds, representing a 5.4 pound weight loss with a BMI today of 40.6.? No complaints of nausea, emesis, abdominal pain or reflux, or constipation. Pt checking BP at home and reports readings are good. Has not needed losartan. Present meal plan includes: 2 Celebrate 4:1 shakes with 2 scoops in UAM Premier 1 scoop in UA Atkins bar Exercise routine includes: 300 devonte/day, 150 on bike in each AM and PM [facility] Medical History (Updated 03/16/24 @ 00:02 by Samantha Quezada) Hiatal hernia Elevated cholesterol YENNIFER on CPAP HTN (hypertension) Stress incontinence GERD (gastroesophageal reflux disease) Rheumatoid arthritis Abnormal ECG Migraines, neuralgic Anxiety Depression Asthma Surgical History (Updated 04/11/24 @ 11:32 by Uyen Howe [facility]) Hx of laparoscopic partial gastrectomy History of esophagogastroduodenoscopy (EGD) [place] teeth removed H/O knee surgery Family History Father Diabetes HTN (hypertension) Hyperlipidemia Mother HTN (hypertension) Osteoporosis Uterine cancer Maternal Grandmother Colon cancer Social History Household Members: Spouse Household Members Other:: partner Housing: House Are you a primary floor care specialist to a significant other at home: No Do you presently have visiting nurse or other home services: No Alcohol intake: former Patient Tobacco Use Status: Former Tobacco user Tobacco use type: Cigarette Years Smoked: 5 Current occupational status: employed 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 Rodney paredes, will adjust meal plan according to his instructions. May restart Tsering but modify any core exercises. Continue pantoprazole and carafate. Losartan on hold, pt will continue to check BP at home. RTC 1 month. I spent a total of 30 minutes reviewing/updating records, examining the patient and counseling the patient on weight management as detailed above.
[2024-04-11 11:27] VITALS: BP 128/74; PULSE 74; TEMP 36.1; O2SAT 98; BMI 40.5
== END 2024-04-11 12:01 | disposition home or self-care (01) ==
PROVIDERS: PCP Internal Medicine; Visit Provider Physician Assistant Surgical
DX: E66.01 Morbid (severe) obesity due to excess calories (principal); Z68.41 Body mass index [BMI] 40.0-44.9, adult; Z90.3 Acquired absence of stomach [part of]; Z98.84 Bariatric surgery status
CPT/HCPCS: 99024

== ENCOUNTER → 2024-04-11 11:12 | Outpatient (BNVA) | payer OTHER, SELFPAY | PROVIDERS: PCP Internal Medicine; Visit Provider Physician Assistant Surgical ==

== ENCOUNTER 2024-05-09 09:35 | Outpatient (AMB) | payer OTHER, SELFPAY ==
--- NOTE | 2024-05-09 09:33 | A.OFFVIS_ITS ---
VS Expanded 05/09/24 09:37 Height 5 ft 1 in Weight 206 lb BMI 38.9 Intake Visit Reasons: (tV) PO LSG 03/07/24 Allergies environmental allergies Allergy (Intermediate, Verified 03/28/24 08:50) Itchy Eyes latex Allergy (Intermediate, Verified 03/28/24 08:50) Rash amoxicillin [From Augmentin] Adverse Reaction (Intermediate, Verified 03/28/24 08:50) Rash clavulanic acid [From Augmentin] Adverse Reaction (Intermediate, Verified 03/28/24 08:50) Rash Isopropanol buto bicarbonate Allergy (Intermediate, Uncoded 03/07/24 06:06) Rash Medication List - Last Reconciled 05/09/24 by HERMAN Coyle albuterol sulfate 90 mcg/actuation 2 puffs inhalation Q6H PRN atorvastatin 40 mg PO BEDTIME betamethasone dipropionate 0.05% 1 appl topical BID docusate sodium (Colace) 100 mg PO BID doxycycline hyclate 20 mg PO BID duloxetine 60 mg PO BEDTIME loratadine (Claritin) 10 mg PO DAILY losartan 50 mg PO DAILY metronidazole 0.75% 1 appl topical BID montelukast 10 mg PO BEDTIME multivit with min-folic acid 200 mcg (Multivitamin Gummies) 1 tab PO DAILY pantoprazole 40 mg PO DAILY@0630 sucralfate 10 mL PO BID HPI Comments Details: This?is a?48?yo female who is s/p LSG 03/07/2024. Presents for 2 month post op visit. Weight at last visit on 04/11/2024 was 214.6 pounds with a BMI of 40.5, weight today is 206 pounds, representing a 8.6 pound weight loss with a BMI today of 38.9.? No complaints of nausea, emesis, abdominal pain or reflux, or constipation. Started doxycycline for rosacea, taking with food, no nausea. Wants to take a probiotic. BP has been well controlled, has not needed losartan. BP this AM 111/59. Present meal plan includes: 1 Celebrate 4:1 shakes with 1 scoops in UAM Atkins bar 1 Celebrate 4:1 shakes with 1 scoops in UAM 4 forks protein, 4 forks katie/cauli Atkins bar started MVI Exercise routine includes: 30 min Tsering every day, also biking 20-25min PFSH Medical History (Updated 05/09/24 @ 09:39 by HERMAN Coyle) Hiatal hernia Elevated cholesterol YENNIFER on CPAP HTN (hypertension) Stress incontinence GERD (gastroesophageal reflux disease) Rheumatoid arthritis Abnormal ECG Migraines, neuralgic Anxiety Depression Asthma Surgical History (Updated 04/11/24 @ 11:32 by Uyen Howe CMA) Hx of laparoscopic partial gastrectomy History of esophagogastroduodenoscopy (EGD) [place] teeth removed H/O knee surgery Family History Father Diabetes HTN (hypertension) Hyperlipidemia Mother HTN (hypertension) Osteoporosis Uterine cancer Maternal Grandmother Colon cancer Social History Household Members: Spouse Household Members Other:: partner Housing: House Are you a primary child care provider to a significant other at home: No Do you presently have visiting nurse or other home services: No Alcohol intake: former Patient Tobacco Use Status: Former Tobacco user Tobacco use type: Cigarette Years Smoked: 5 Current occupational status: employed 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 Sexual orientation: Straight/Heterosexual Gender identity: Female Female Reproductive History Menstrual Age of Menarche: 13 Telehealth Telehealth Telehealth Platform: Telephone Location of provider rendering services: practice address Location of patient: address on file Patient Identification confirmed using: Name, : Yes Telehealth method: voice only Patient verbally consented to treatment: Yes Patient verbally consented to billing insurance company: Yes Patient informed of any privacy concerns related to visit: Yes Minutes spent on Phone/Video with Pt.: 15 Assessment & Plan Assessment & Plan (1) S/P laparoscopic sleeve gastrectomy: Code(s): Z98.84 - Bariatric surgery status Category: Surgical (2) Obesity: Code(s): E66.9 - Obesity, unspecified Category: Medical Plan Pt will continue same meal plan per Dr. Stock Can use probiotics, texted options to pt. Continue to monitor BP, well controlled for now not needing losartan. May require additional PPI if continues on doxycycline past 3 months postop, pt will monitor reflux symptoms. RTC 1 month. I spent a total of 30 minutes reviewing/updating records, examining the patient and counseling the patient on weight management as detailed above.
[2024-05-09 09:37] VITALS: BMI 38.9
== END 2024-05-09 09:51 | disposition home or self-care (01) ==
LOC: HO.HBS 09:35
PROVIDERS: PCP Internal Medicine; Visit Provider Physician Assistant Surgical
DX: E66.9 Obesity, unspecified (principal); Z68.38 Body mass index [BMI] 38.0-38.9, adult; Z90.3 Acquired absence of stomach [part of]; Z98.84 Bariatric surgery status
CPT/HCPCS: 99024

== ENCOUNTER → 2024-05-09 09:35 | Outpatient (BNVA) | payer OTHER, SELFPAY | PROVIDERS: PCP Internal Medicine; Visit Provider Physician Assistant Surgical ==

== ENCOUNTER 2024-06-20 10:09 | Outpatient (AMB) | payer OTHER, SELFPAY ==
--- NOTE | 2024-06-20 10:02 | MHC.OFFVISWM ---
VS Expanded 06/20/24 10:04 Height 5 ft 1 in Weight 193 lb BMI 36.5 Intake Visit Reasons: TELEPHONE PO LSG 03/07/24 Allergies environmental allergies Allergy (Intermediate, Verified 03/28/24 08:50) Itchy Eyes latex Allergy (Intermediate, Verified 03/28/24 08:50) Rash amoxicillin [From Augmentin] Adverse Reaction (Intermediate, Verified 03/28/24 08:50) Rash clavulanic acid [From Augmentin] Adverse Reaction (Intermediate, Verified 03/28/24 08:50) Rash Isopropanol buto bicarbonate Allergy (Intermediate, Uncoded 03/07/24 06:06) Rash Medication List - Last Reconciled 06/20/24 by HERMAN Coyle albuterol sulfate 90 mcg/actuation 2 puffs inhalation Q6H PRN atorvastatin 40 mg PO BEDTIME betamethasone dipropionate 0.05% 1 appl topical BID docusate sodium (Colace) 100 mg PO BID doxycycline hyclate 20 mg PO BID duloxetine 60 mg PO BEDTIME loratadine (Claritin) 10 mg PO DAILY losartan 50 mg PO DAILY metronidazole 0.75% 1 appl topical BID montelukast 10 mg PO BEDTIME multivit with min-folic acid 200 mcg (Multivitamin Gummies) 1 tab PO DAILY pantoprazole 40 mg PO DAILY@0630 sucralfate 10 mL PO BID HPI Comments Details: This?is a?49?yo female who is s/p LSG 03/07/2024. Presents for 3 month post op visit. Weight at last visit on 05/09/2024 was 206 pounds with a BMI of 38.9, weight today is 193 pounds, representing a 13 pound weight loss with a BMI today of 36.5.? No complaints of nausea, emesis, abdominal pain or reflux, or constipation. Started doxycycline for rosacea, taking with food, no nausea. Wants to take a probiotic. BP has been well controlled, checks every day, has not needed losartan. Having some hair loss, dry skin. Present meal plan includes: 1 Celebrate 4:1 shakes with 1 scoops in UAM Atkins bar 1 Celebrate 4:1 shakes with 1 scoops in UAM 4 forks protein, 4 forks katie/cauli Atkins bar started MVI Exercise routine includes: 30-45 min Tsering every day, also biking 20-25min sometimes PFSH Medical History (Updated 05/09/24 @ 09:39 by HERMAN Coyle) Hiatal hernia Elevated cholesterol YENNIFER on CPAP HTN (hypertension) Stress incontinence GERD (gastroesophageal reflux disease) Rheumatoid arthritis Abnormal ECG Migraines, neuralgic Anxiety Depression Asthma Surgical History (Updated 04/11/24 @ 11:32 by Uyen Howe CMA) Hx of laparoscopic partial gastrectomy History of esophagogastroduodenoscopy (EGD) [place] teeth removed H/O knee surgery Family History Father Diabetes HTN (hypertension) Hyperlipidemia Mother HTN (hypertension) Osteoporosis Uterine cancer Maternal Grandmother Colon cancer Social History Household Members: Spouse Household Members Other:: partner Housing: House Are you a primary group care worker to a significant other at home: No Do you presently have visiting nurse or other home services: No Alcohol intake: former Patient Tobacco Use Status: Former Tobacco user Tobacco use type: Cigarette Years Smoked: 5 Current occupational status: employed 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 Sexual orientation: Straight/Heterosexual Gender identity: Female Female Reproductive History Menstrual Age of Menarche: 13 Telehealth Telehealth Telehealth Platform: Telephone Location of provider rendering services: other Location of patient: address on file Patient Identification confirmed using: Name, : Yes Telehealth method: voice only Patient verbally consented to treatment: Yes Patient verbally consented to billing insurance company: Yes Patient informed of any privacy concerns related to visit: Yes Minutes spent on Phone/Video with Pt.: 15 Assessment & Plan Assessment & Plan (1) Obesity: Code(s): E66.9 - Obesity, unspecified Category: Medical (2) S/P laparoscopic sleeve gastrectomy: Code(s): Z98.84 - Bariatric surgery status Category: Surgical Plan Vitamin labs ordered for complaints of dry skin and dry eyes. Pt has completed PPI, has one more dose of carafate, will contact me if she experiences reflux while on doxy. Will continue meal plan per Dr Stevesn, continue to check BP. RTC 6 weeks. I spent a total of 30 minutes reviewing/updating records, examining the patient and counseling the patient on weight management as detailed above. Orders: Orders Vitamin B1 Today Z98.84 - Bariatric surgery status Vitamin A Today Z98.84 - Bariatric surgery status Vitamin D 25-OH Total Today Z98.84 - Bariatric surgery status Zinc Today Z98.84 - Bariatric surgery status Vitamin B12 and Folate Today Z98.84 - Bariatric surgery status
[2024-06-20 10:04] VITALS: BMI 36.5
== END 2024-06-20 10:33 | disposition home or self-care (01) ==
LOC: HO.HBS 10:09
PROVIDERS: PCP Internal Medicine; Visit Provider Physician Assistant Surgical
DX: E66.9 Obesity, unspecified (principal); Z98.84 Bariatric surgery status
CPT/HCPCS: 99214

== ENCOUNTER → 2024-06-20 10:09 | Outpatient (BNVA) | payer OTHER, SELFPAY | PROVIDERS: PCP Internal Medicine; Visit Provider Physician Assistant Surgical ==

== ENCOUNTER 2024-06-22 13:02 | Outpatient (REF) | payer OTHER, SELFPAY ==
[2024-06-22 17:13] LABS: Vitamin D 25-OH Total 48.1 ng/mL (>30)
[2024-06-22 17:25] LABS: Folate 13.2 ng/mL (> or = 4.0); Vitamin B12 775 pg/mL (200-900)
[2024-06-27 02:43] LABS: Zinc 63 mcg/dL (60-130)
[2024-06-27 18:52] LABS: Vitamin A 34 mcg/dL (38-98)
[2024-06-29 15:28] LABS: Vitamin B1 30 nmol/L (8-30)
== END 2024-06-22 13:03 | disposition home or self-care (01) ==
LOC: HO.HMGCLDS 13:02
PROVIDERS: PCP Internal Medicine; Visit Provider Physician Assistant Surgical
DX: Z98.84 Bariatric surgery status (principal)
CPT/HCPCS: 36415; 82306; 82607; 82746; 84425; 84590; 84630

== ENCOUNTER 2024-08-09 09:52 | Outpatient (AMB) | payer OTHER, SELFPAY ==
--- NOTE | 2024-08-09 09:44 | A.OFFVIS_ITS ---
VS Expanded 08/09/24 09:46 Height 5 ft 1 in Weight 179 lb BMI 33.8 Intake Visit Reasons: TELEPHONE PO LSG 03/07/24 Allergies environmental allergies Allergy (Intermediate, Verified 03/28/24 08:50) Itchy Eyes latex Allergy (Intermediate, Verified 03/28/24 08:50) Rash amoxicillin [From Augmentin] Adverse Reaction (Intermediate, Verified 03/28/24 08:50) Rash clavulanic acid [From Augmentin] Adverse Reaction (Intermediate, Verified 03/28/24 08:50) Rash Isopropanol buto bicarbonate Allergy (Intermediate, Uncoded 03/07/24 06:06) Rash Medication List - Last Reconciled 08/09/24 by HERMAN Coyle albuterol sulfate 90 mcg/actuation 2 puffs inhalation Q6H PRN atorvastatin 40 mg PO BEDTIME betamethasone dipropionate 0.05% 1 appl topical BID docusate sodium (Colace) 100 mg PO BID doxycycline hyclate 20 mg PO BID duloxetine 60 mg PO BEDTIME loratadine (Claritin) 10 mg PO DAILY metronidazole 0.75% 1 appl topical BID montelukast 10 mg PO BEDTIME multivit with min-folic acid 200 mcg (Multivitamin Gummies) 1 tab PO DAILY vitamin A palmitate 10,000 units PO DAILY HPI Comments Details: This?is a?49?yo female who is s/p LSG 03/07/2024. Presents for 5 month post op visit. Weight at last visit on 06/20/2024 was 193 pounds with a BMI of 36.5, weight today is 179 pounds, representing a 14 pound weight loss with a BMI today of 33.8.? No complaints of nausea, emesis, abdominal pain or reflux, or constipation. BP well controlled off meds. Restarted vit A supplement after labs, dry eye has improved. Present meal plan includes: 1 Celebrate 4:1 shakes with 1 scoops in [facility] Atkins bar 1 Celebrate 4:1 shakes with 1 scoops in [facility] 4 forks protein, 4 forks katie/cauli Atkins bar started MVI Exercise routine includes: 30-45 min Tsering every other day, also biking 20-25min sometimes; had to decrease exercise due to knee strain, wearing a brace now (had 2 knee surgeries in the past) FOR[facility]LY [facility], [facility] Medical History (Updated 05/09/24 @ 09:39 by HERMAN Coyle) Hiatal hernia Elevated cholesterol YENNIFER on CPAP HTN (hypertension) Stress incontinence GERD (gastroesophageal reflux disease) Rheumatoid arthritis Abnormal ECG Migraines, neuralgic Anxiety Depression Asthma Surgical History (Updated 04/11/24 @ 11:32 by Uyen Howe CMA) Hx of laparoscopic partial gastrectomy History of esophagogastroduodenoscopy (EGD) [place] teeth removed H/O knee surgery Family History Father Diabetes HTN (hypertension) Hyperlipidemia Mother HTN (hypertension) Osteoporosis Uterine cancer Maternal Grandmother Colon cancer Social History Household Members: Spouse Household Members Other:: partner Housing: House Are you a primary physician assistant primary care to a significant other at home: No Do you presently have visiting nurse or other home services: No Alcohol intake: former Patient Tobacco Use Status: Former Tobacco user Tobacco use type: Cigarette Years Smoked: 5 Current occupational status: employed 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 Sexual orientation: Straight/Heterosexual Gender identity: Female Female Reproductive History Menstrual Age of Menarche: 13 Telehealth Telehealth Telehealth Platform: Telephone Location of provider rendering services: other Location of patient: address on file Patient Identification confirmed using: Name, : Yes Telehealth method: voice only Patient verbally consented to treatment: Yes Patient verbally consented to billing insurance company: Yes Patient informed of any privacy concerns related to visit: Yes Minutes spent on Phone/Video with Pt.: 16 Assessment & Plan Assessment & Plan (1) Obesity: Code(s): E66.9 - Obesity, unspecified Category: Medical (2) S/P laparoscopic sleeve gastrectomy: Code(s): Z98.84 - Bariatric surgery status Category: Surgical Plan Continue meal plan per Dr. Dayami Falcon as able. Vitamin labs reviewed, supplementing with vit A and dry eye resolved. Continue to check home BP. Labs ordered in anticipation of 6mo visit. RTC 6 weeks. Orders: Orders Insulin Today Z98.84 - Bariatric surgery status Hemoglobin A1c Today Z98.84 - Bariatric surgery status Complete Blood Count Auto Diff Today Z98.84 - Bariatric surgery status IRON PROFILE Today Z98.84 - Bariatric surgery status Comprehensive Met. Panel Today Z98.84 - Bariatric surgery status Zinc Today Z98.84 - Bariatric surgery status C Reactive Protein Today Z98.84 - Bariatric surgery status Ferritin Today Z98.84 - Bariatric surgery status Vitamin D 25-OH Total Today Z98.84 - Bariatric surgery status Lipid Panel Today Z98.84 - Bariatric surgery status Vitamin B12 and Folate Today Z98.84 - Bariatric surgery status Vitamin B1 Today Z98.84 - Bariatric surgery status Vitamin A Today Z98.84 - Bariatric surgery status TSH reflex Free T4 Today Z98.84 - Bariatric surgery status Parathyroid Hormone Intact Today Z98.84 - Bariatric surgery status
[2024-08-09 09:46] VITALS: BMI 33.8
== END 2024-08-09 10:01 | disposition home or self-care (01) ==
LOC: HO.HBS 09:52
PROVIDERS: PCP Internal Medicine; Visit Provider Physician Assistant Surgical
DX: E66.811 Obesity, class 1 (principal); Z68.33 Body mass index [BMI] 33.0-33.9, adult; Z90.3 Acquired absence of stomach [part of]; Z98.84 Bariatric surgery status
CPT/HCPCS: 99214

== ENCOUNTER → 2024-08-09 09:52 | Outpatient (BNVA) | payer OTHER, SELFPAY | PROVIDERS: PCP Internal Medicine; Visit Provider Physician Assistant Surgical ==

== ENCOUNTER 2024-09-26 06:06 | Outpatient (REF) | payer OTHER, SELFPAY ==
[2024-09-26 09:52] LABS: MANUAL DIFF FLAG NO
[2024-09-26 10:09] LABS: Basophils Percent Auto 0.4 % (0-2); Eosinophils Absolute Auto 0.2 X10*3/uL (0.0-0.4); Hematocrit 39.2 % (37.0-47.0); Hemoglobin 12.4 g/dl (12.0-16.0); Imm Gran Abs Auto 0.01 X10*3/uL (0.00-0.03); Imm Gran Pct Auto 0.2 % (0.0-0.4); Lymphocytes Absolute Auto 1.7 X10*3/uL (1.2-4.9); Lymphocytes Percent Auto 34.2 % (20-40); Mean Corpuscular HGB Conc 31.6 g/dl (31.0-35.0); Mean Corpuscular Hemoglobin 28.7 pg (27.0-33.0); Mean Corpuscular Volume 90.7 fL (80.0-98.0); Mean Platelet Volume 10.1 fL (9.4-12.3); Monocytes Absolute Auto 0.5 X10*3/uL (0.1-1.2); Monocytes Percent Auto 9.9 % (2-11); Neutrophils Absolute Auto 2.7 x10*3/uL (2.0-8.3); Neutrophils Percent Auto 52.3 % (45-73); Platelet Count 347 X10*3/uL (160-400); Red Blood Count 4.32 X10*6/uL (4.20-5.50); Red Cell Distribution Width 13.2 % (11.0-16.0); White Blood Count 5.1 X10*3/uL (4.8-10.8)
[2024-09-26 10:35] LABS: Estimated Average Glucose 103 mg/dL; Hemoglobin A1C 109.2039 umol/L; Hemoglobin A1c % 5.2 % (<6.0); Total Hemoglobin (HGBA1C) 3247.5081 umol/L
[2024-09-26 10:42] LABS: Parathyroid Hormone Intact 99.4 pg/mL (8.7-77.1)
[2024-09-26 10:57] LABS: Alanine Aminotransferase 45 U/L (0-31); Alkaline Phosphatase 84 U/L (39-117); Anion Gap 8 (12-20); Aspartate Amino Transferase 42 U/L (5-31); Bilirubin Total 0.4 mg/dL (0.0-1.0); Blood Urea Nitrogen 14 mg/dL (9-16); Calcium 9.3 mg/dL (8.4-10.2); Carbon Dioxide 29 mmol/L (22-29); Chloride 108 mmol/L (96-108); Cholesterol 174 mg/dL (<200); Estimated Glomerular Filt Rate > 60; Glucose Random 88 mg/dL (60-115); HDL Cholesterol 55 mg/dL (>40); Iron 68 mcg/dL (30-160); LDL Cholesterol Calculated 98 mg/dL (<100); Percent Iron Saturation 27 % (15-50); Potassium 4.2 mmol/L (3.3-5.1); Sodium 141 mmol/L (135-145); Total Iron Binding Capacity 251 mcg/dL (228-428); Total Protein 7.1 g/dL (6.5-8.0); Triglycerides 105 mg/dL (<150); Unsaturated Iron Binding 183 ug/dL
[2024-09-26 11:02] LABS: Ferritin 24 ng/mL (10-250); Insulin 3 uU/mL (2-29); TSH reflex Free T4 1.16 uIU/mL (0.32-4.0); Vitamin D 25-OH Total 60.1 ng/mL (>30)
[2024-09-26 11:21] LABS: Folate 17.4 ng/mL (> or = 4.0); Vitamin B12 581 pg/mL (200-900)
[2024-09-30 00:44] LABS: Zinc 89 mcg/dL (60-130)
[2024-09-30 07:53] LABS: Vitamin B1 23 nmol/L (8-30)
[2024-10-01 09:29] LABS: Vitamin A 47 mcg/dL (38-98)
== END 2024-09-26 06:07 | disposition home or self-care (01) ==
LOC: HO.HMGCLDS 06:06
PROVIDERS: PCP Internal Medicine; Visit Provider Physician Assistant Surgical
DX: Z98.84 Bariatric surgery status (principal); Z13.1 Encounter for screening for diabetes mellitus
CPT/HCPCS: 36415; 80053; 80061; 82306; 82607; 82728; 82746; 83036; 83525; 83540; 83970; 84425; 84443; 84590; 84630; 85025; 86140

== ENCOUNTER 2024-10-02 11:36 | Outpatient (AMB) | payer OTHER, SELFPAY ==
--- NOTE | 2024-10-02 11:32 | MHC.OFFVISWM ---
VS Expanded 10/02/24 11:33 Height 5 ft 1 in Weight 170 lb 4 oz BMI 32.2 Intake Visit Reasons: TELEPHONE PO LSG 03/16/24 Allergies environmental allergies Allergy (Intermediate, Verified 03/28/24 08:50) Itchy Eyes latex Allergy (Intermediate, Verified 03/28/24 08:50) Rash amoxicillin [From Augmentin] Adverse Reaction (Intermediate, Verified 03/28/24 08:50) Rash clavulanic acid [From Augmentin] Adverse Reaction (Intermediate, Verified 03/28/24 08:50) Rash Isopropanol buto bicarbonate Allergy (Intermediate, Uncoded 03/07/24 06:06) Rash Medication List - Last Reconciled 10/02/24 by HERMAN Coyle albuterol sulfate 90 mcg/actuation 2 puffs inhalation Q6H PRN atorvastatin 40 mg PO BEDTIME betamethasone dipropionate 0.05% 1 appl topical BID cetirizine (Zyrtec) 10 mg PO DAILY PRN docusate sodium (Colace) 100 mg PO BID doxycycline hyclate 20 mg PO BID duloxetine 60 mg PO BEDTIME metronidazole 0.75% 1 appl topical BID montelukast 10 mg PO BEDTIME multivit with min-folic acid 200 mcg (Multivitamin Gummies) 1 tab PO DAILY vitamin A palmitate 10,000 units PO DAILY HPI Comments Details: This?is a?49?yo female who is s/p LSG 03/07/2024. Presents for 6.5 month post op visit. 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 No complaints of nausea, emesis, abdominal pain or reflux, or constipation. Holidays were a little difficult for me, I feel like I'm getting yelled at when I text my measurements . [place] like her depression was triggered. Present meal plan includes: 1 Celebrate 4:1 shakes with 1 scoops in [facility] Atkins bar 1 Celebrate 4:1 shakes with 1 scoops in U[facility] 4 forks protein, 4 forks katie/cauli Atkins bar started MVI Exercise routine includes: 30-45 min Tsering every other day, also biking 20-25min sometimes but finds this boring trying to do more walking- almost 3 miles per day GERD score Score 0-5: 0=no symptoms, 1=noticeable but not bothersome (slight or occasional), 2=noticeable, bothersome but not daily, 3=bothersome and daily, 4=affects daily activities, 5=incapacitating, unable to do daily activities How bad is the heartburn: 0 Heartburn when lying down: 0 Heartburn when standing up: 0 Heartburn after meals: 0 Does heartburn change your diet: 0 Does heartburn wake you up from sleep: 0 Do you have difficulty swallowin Do you have pain with swallowin If you take medication for reflux, does this affect your daily life: 0 Total score: 0 PFSH Medical History (Updated 05/09/24 @ 09:39 by HERMAN Coyle) Hiatal hernia Elevated cholesterol YENNIFER on CPAP HTN (hypertension) Stress incontinence GERD (gastroesophageal reflux disease) Rheumatoid arthritis Abnormal ECG Migraines, neuralgic Anxiety Depression Asthma Surgical History (Updated 04/11/24 @ 11:32 by Uyen Howe CMA) Hx of laparoscopic partial gastrectomy History of esophagogastroduodenoscopy (EGD) [place] teeth removed H/O knee surgery Family History Father Diabetes HTN (hypertension) Hyperlipidemia Mother HTN (hypertension) Osteoporosis Uterine cancer Maternal Grandmother Colon cancer Social History Household Members: Spouse Household Members Other:: partner Housing: House Are you a primary post acute care nurse to a significant other at home: No Do you presently have visiting nurse or other home services: No Alcohol intake: former Patient Tobacco Use Status: Former Tobacco user Tobacco use type: Cigarette Years Smoked: 5 Current occupational status: employed 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 Sexual orientation: Straight/Heterosexual Gender identity: Female Female Reproductive History Menstrual Age of Menarche: 13 Telehealth Telehealth Telehealth Platform: Telephone Location of provider rendering services: other Location of patient: address on file Patient Identification confirmed using: Name, : Yes Telehealth method: voice only Patient verbally consented to treatment: Yes Patient verbally consented to billing insurance company: Yes Patient informed of any privacy concerns related to visit: Yes Minutes spent on Phone/Video with Pt.: 16 Assessment & Plan Assessment & Plan (1) Obesity: Code(s): E66.9 - Obesity, unspecified Category: Medical (2) S/P laparoscopic sleeve gastrectomy: Code(s): Z98.84 - Bariatric surgery status Category: Medical Plan Pt to continue on same meal plan per Dr. Stevens, trying to increase exercise now that knee is better. Labs reviewed, high PTH in the setting of normal Ca and vit D, will recheck in a few weeks. Vit A normalized. RTC 3 months I spent a total of 30 minutes reviewing/updating records, examining the patient and counseling the patient on weight management as detailed above. Orders: Orders Parathyroid Hormone Intact Today Z98.84 - Bariatric surgery status
[2024-10-02 11:33] VITALS: BMI 32.2
== END 2024-10-02 11:57 | disposition home or self-care (01) ==
LOC: HO.HBS 11:36
PROVIDERS: PCP Internal Medicine; Visit Provider Physician Assistant Surgical
DX: E66.9 Obesity, unspecified (principal); Z98.84 Bariatric surgery status
CPT/HCPCS: 98967

== ENCOUNTER 2024-10-06 15:22 | Outpatient (REF) | payer OTHER, SELFPAY ==
--- NOTE | ~2024-10-06 | MM_ITS ---
EXAMINATION: MM SCREENING DIGITAL BREAST TOMOSYNTHESIS, BILATERAL CLINICAL INFORMATION: Screening. Asymptomatic. Patient reports yellow/clear nipple discharge from left nipple on and off for a few years. COMPARISON: Mammography: Comparison is made with available priors TECHNIQUE: Digital breast mammography with tomosynthesis is performed in both the craniocaudal and mediolateral oblique views along with computer-aided detection (CAD). FINDINGS: The breasts are heterogeneously dense, which may obscure small masses (ACR BI-RADS breast composition Category c). Right: There are no significant masses, abnormal calcifications, or other abnormalities. Left: Asymmetry superior breast posterior depth on MLO view. Asymmetry retroareolar region on MLO view. No suspicious calcifications or other abnormal findings. MM/MM tomosynthesis screening BI IMPRESSION: Right: Negative. Left: 1. Asymmetries, recommend additional imaging and possible ultrasound at this time. 2. Patient has yellow/clear nipple discharge. Recommend ultrasound at this time. ASSESSMENT: BI-RADS BI-RADS 0 - Incomplete: Needs additional Imaging. RECOMMENDATION: 1. Additional views of the left breast 2. Targeted ultrasound if warranted after review of the additional views. 3. Radiology department staff will contact the patient for additional imaging. Additional Imaging required This examination should not preclude the clinical evaluation of a suspicious palpable abnormality. This patient's information was entered into a reminder system with a target due date for their next mammogram. Electronically signed by: Velma Parsons DO 10/09/2024 10:10 AM EST
== END 2024-10-06 15:23 | disposition home or self-care (01) ==
LOC: HO.MAMMO 15:22
PROVIDERS: PCP Internal Medicine; Visit Provider Internal Medicine
DX: Z12.31 Encounter for screening mammogram for malignant neoplasm of breast (principal)
CPT/HCPCS: 77063; 77067

== ENCOUNTER → 2024-10-06 15:30 | Outpatient (BNV) | payer OTHER, SELFPAY | PROVIDERS: PCP Internal Medicine; Visit Provider Internal Medicine | DX: Z12.31 Encounter for screening mammogram for malignant neoplasm of breast (principal) | CPT/HCPCS: 77063; 77067 ==

== ENCOUNTER 2024-11-16 13:10 | Outpatient (REF) | payer OTHER, SELFPAY ==
--- NOTE | ~2024-11-16 | US_ITS ---
EXAMINATION: MM DIAGNOSTIC DIGITAL BREAST TOMOSYNTHESIS, LEFT Limited left breast ultrasound. CLINICAL INFORMATION: Call back from screening for left breast asymmetries on MLO view. Yellow left nipple discharge. COMPARISON: Mammography: Comparison is made with available prior examinations. TECHNIQUE: Digital breast tomosynthesis is performed in both the craniocaudal and mediolateral oblique views along with computer-aided detection (CAD). Synthesized 2D images are generated from the tomosynthesis. FINDINGS: The breasts are heterogeneously dense, which may obscure small masses (ACR BI-RADS breast composition Category c). Asymmetry in the superior breast on MLO view does not persist on additional imaging projections and likely represented overlapping breast tissue. Asymmetry in the retroareolar region on MLO view does not persist on additional imaging projections and likely represented overlapping breast tissue. Targeted color Doppler ultrasound scanning in the superior left breast from 12-5 o'clock demonstrates normal fibroglandular breast tissue. Targeted color Doppler ultrasound scanning in the retroareolar region demonstrates normal fibroglandular breast tissue. There are no significant masses, abnormal calcifications, or other abnormalities. US/US breast LT limited mamm only IMPRESSION: No mammographic or sonographic evidence of malignancy or to account for the yellow nipple discharge recommend clinical evaluation and follow-up. The previously seen asymmetries do not persist on additional imaging and no sonographic abnormality was seen. ASSESSMENT: BI-RADS BI-RADS 1 - Negative RECOMMENDATION: 1 year F/U Results were provided to the patient at time of visit by the technologist. This patient's information was entered into a reminder system with a target due date for their next mammogram. Electronically signed by: Velma Parsons DO 11/16/2024 02:04 PM ERVIN DECKER
== END 2024-11-16 13:11 | disposition home or self-care (01) ==
LOC: HO.MAMMO 13:10
PROVIDERS: Physician Assistant Surgical; PCP Internal Medicine; Visit Provider Internal Medicine
DX: N64.52 Nipple discharge (principal); R92.332 Mammographic heterogeneous density, left breast; N64.89 Other specified disorders of breast; Z98.84 Bariatric surgery status
CPT/HCPCS: 36415; 76642; 77061; 77065; 83970

== ENCOUNTER → 2024-11-16 13:30 | Outpatient (BNV) | payer OTHER, SELFPAY | PROVIDERS: PCP Internal Medicine; Visit Provider Internal Medicine | DX: N64.52 Nipple discharge (principal) | CPT/HCPCS: 76642; 77061; 77065 ==

== ENCOUNTER 2024-12-26 12:34 | Outpatient (AMB) | payer OTHER, SELFPAY ==
--- NOTE | 2024-12-26 12:02 | A.OFFVIS_ITS ---
VS Expanded 12/26/24 12:11 Height 5 ft 1 in Weight 152 lb 8 oz BMI 28.8 Intake Visit Reasons: TELEPHONE PO LSG 03/16/24 Allergies environmental allergies Allergy (Intermediate, Verified 03/28/24 08:50) Itchy Eyes latex Allergy (Intermediate, Verified 03/28/24 08:50) Rash amoxicillin [From Augmentin] Adverse Reaction (Intermediate, Verified 03/28/24 08:50) Rash clavulanic acid [From Augmentin] Adverse Reaction (Intermediate, Verified 03/28/24 08:50) Rash Isopropanol buto bicarbonate Allergy (Intermediate, Uncoded 03/07/24 06:06) Rash Medication List - Last Reconciled 12/26/24 by HERMAN Coyle albuterol sulfate 90 mcg/actuation 2 puffs inhalation Q6H PRN atorvastatin 40 mg PO BEDTIME betamethasone dipropionate 0.05% 1 appl topical BID cetirizine (Zyrtec) 10 mg PO DAILY PRN docusate sodium 100 mg PO BID doxycycline hyclate 20 mg PO BID duloxetine 60 mg PO BEDTIME metronidazole 0.75% 1 appl topical BID montelukast 10 mg PO BEDTIME multivit with min-folic acid 200 mcg (Multivitamin Gummies) 1 tab PO DAILY vitamin A palmitate 10,000 units PO DAILY HPI Comments Details: This?is a?49?yo female who is s/p LSG 03/16/2024. Presents for 9 mo post op visit. Weight loss of 17.6lbs since last OV 3mo ago.? No complaints of nausea, emesis, abdominal pain or reflux, or constipation. 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 Present meal plan includes: 1 Celebrate 4:1 shakes with 1 scoops in [facility] Atkins bar 1 Celebrate 4:1 shakes with 1 scoops in [facility] 4 forks protein, 4 forks katie/cauli Atkins bar started MVI Exercise routine includes: 30-45 min Tsering every other day, also biking 20-25min sometimes but finds this boring trying to do more walking- almost 3 miles per day difficulty working out while she recently had a sinus infection [facility] Medical History (Updated 12/26/24 @ 12:04 by HERMAN Coyle) Hiatal hernia Elevated cholesterol YENNIFER on CPAP HTN (hypertension) Stress incontinence GERD (gastroesophageal reflux disease) Rheumatoid arthritis Abnormal ECG Migraines, neuralgic Anxiety Depression Asthma Surgical History (Updated 04/11/24 @ 11:32 by Uyen Howe CMA) Hx of laparoscopic partial gastrectomy History of esophagogastroduodenoscopy (EGD) [place] teeth removed H/O knee surgery Family History Father Diabetes HTN (hypertension) Hyperlipidemia Mother HTN (hypertension) Osteoporosis Uterine cancer Maternal Grandmother Colon cancer Social History Household Members: Spouse Household Members Other:: partner Housing: House Are you a primary animal care assistant to a significant other at home: No Do you presently have visiting nurse or other home services: No Alcohol intake: former Patient Tobacco Use Status: Former Tobacco user Tobacco use type: Cigarette Years Smoked: 5 Current occupational status: employed 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 Sexual orientation: Straight/Heterosexual Gender identity: Female Female Reproductive History Menstrual Age of Menarche: 13 Physical Exam Vital Signs: BMI result Body Mass Index 28.8 Telehealth Telehealth Telehealth Platform: Telephone Location of provider rendering services: other Location of patient: address on file Patient Identification confirmed using: Name, : Yes Telehealth method: voice only Patient verbally consented to treatment: Yes Patient verbally consented to billing insurance company: Yes Patient informed of any privacy concerns related to visit: Yes Minutes spent on Phone/Video with Pt.: 16 Assessment & Plan Assessment & Plan (1) S/P laparoscopic sleeve gastrectomy: Code(s): Z98.84 - Bariatric surgery status Category: Surgical (2) Overweight: Code(s): E66.3 - Overweight Category: Medical Plan Pt to continue same meal plan. Doing well with weight loss, BMI no longer obese. Referral placed to endocrinology for persistently elevated PTH in the setting of normal calcium and vit D. Gave pt contact info for office. RTC 3mo, can repeat bloodwork at that time.
[2024-12-26 12:11] VITALS: BMI 28.8
== END 2024-12-26 12:34 | disposition home or self-care (01) ==
LOC: HO.HBS 12:34
PROVIDERS: PCP Internal Medicine; Visit Provider Physician Assistant Surgical
DX: E66.3 Overweight (principal); Z68.28 Body mass index [BMI] 28.0-28.9, adult; Z90.3 Acquired absence of stomach [part of]; Z98.84 Bariatric surgery status
CPT/HCPCS: 98012

== ENCOUNTER → 2024-12-26 12:34 | Outpatient (BNVA) | payer OTHER, SELFPAY | PROVIDERS: PCP Internal Medicine; Visit Provider Physician Assistant Surgical | DX: Z98.84 Bariatric surgery status (principal); E66.3 Overweight ==

== ENCOUNTER 2025-03-20 14:30 | Outpatient (AMB) | payer OTHER, SELFPAY ==
--- NOTE | 2025-03-20 14:44 | A.OFFVIS_ITS ---
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 Currently is not sexually active. She denies vaginal itching or irritation. History of abnormal thyroid levels. Plans to repeat her labs this Wednesday. Following a specialized postop diet for weight loss and stays active with exercise. Denies family history of breast or ovarian. FH colon cancer. Last pap smear 2020, negative. Mammogram: 2024. [facility] Medical History Hiatal hernia Elevated cholesterol YENNIFER on CPAP HTN (hypertension) Stress incontinence GERD (gastroesophageal reflux disease) Rheumatoid arthritis Abnormal ECG Migraines, neuralgic Anxiety Depression Asthma Surgical History Hx of laparoscopic partial gastrectomy History of esophagogastroduodenoscopy (EGD) [place] teeth removed H/O knee surgery Family History Father Diabetes HTN (hypertension) Hyperlipidemia Mother HTN (hypertension) Osteoporosis Uterine cancer, Onset Age: 66 Maternal Grandmother Colon cancer Social History Household Members: Spouse Household Members Other:: partner Housing: House Are you a primary pet care assistant to a significant other at home: No Do you presently have visiting nurse or other home services: No Alcohol intake: former Patient Tobacco Use Status: Former Tobacco user Tobacco use type: Cigarette Years Smoked: 5 Current occupational status: employed 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 Sexual orientation: Straight/Heterosexual Gender identity: Female Female Reproductive History Menstrual Age of Menarche: 13 Date of last menstrual period: 02/09/25 Total pregnancies: 0 Date of last pap smear: 08/14/22 (neg pap and hpv) Date of Mammogram: 10/06/24 (Birad 0, 11/16/24 Birad 1) Review of Systems Const All systems reviewed & are unremarkable except as noted in HPI and below Reports as per HPI Eyes Reports no additional complaints ENT Reports no additional complaints Card Reports no additional complaints Resp Reports no additional complaints GI Reports as per HPI and Reports no additional complaints Reports as per HPI Musc Reports no additional complaints Skin/Breast Reports as per HPI Neuro Reports no additional complaints Psych Reports no additional complaints Endo Reports no additional complaints Leonides/Lymph Reports no additional complaints Aller/Immun Reports no additional complaints Physical Exam Vital Signs: Last Vital Signs BP 142/80 H 03/20/25 14:55 BMI result Body Mass Index 29.3 Const General: cooperative, healthy appearing, no acute distress, well developed and alert Orientation/consciousness: patient oriented x3 HEENT Head: Yes normal to inspection Eyes General: appearance normal, both eyes and all related structures Neck Neck: Yes normal visual inspection Thyroid: Thyroid normal Chest Chest palpation & inspection: normal inspection of the chest and other (no puckering, dimpling, peau de orange, retraction, discharge, masses) Breast/axilla inspection: normal inspection of the breasts Breast/axilla palpation: normal palpation of the breasts Resp Effort & Inspection: normal respiratory effort GI Inspection: Yes normal to inspection and Yes scar Palpation (GI): Soft to palpation Rectal Exam - Female: deferred General: Yes bladder normal to palpation External Female Exam: normal external appearance and normal appearance of the urethra Speculum Exam - Vagina: normal appearance of the vagina, normal palpation and normal vaginal discharge Speculum Exam - Cervix: normal appearance of the cervix and normal palpation Bimanual exam- vagina & uterus: normal bimanual exam, normal palpation, uterine size normal, bladder normal to palpation, normal palpation and non-tender Bimanual Exam- Adnexa, other: no masses Skin General skin exam: no rashes or lesions noted Rashes: no rashes Neuro General: patient oriented x3 Cognition (Neuro): normal cognition Extrem General: Yes normal to inspection Psych Attitude: cooperative Thought process: Normal thought process present Assessment & Plan Assessment & Plan (1) Abnormal uterine bleeding: Code(s): N93.9 - Abnormal uterine and vaginal bleeding, unspecified Plan: Reviewed workup for AUB to include lab work, pelvic ultrasound, and follow up in person to discuss results. Possible endometrial biopsy at next visit. Pre procedure planning reviewed advised to have some thing to eat and drink and take 2 Tylenol 1 hour before her procedure time. Discussed rapid changes of weight loss and hormonal fluctuations in perimenopause. Indications for an endometrial biopsy is to rule out any abnormal cells including atypia, precancer or endometrial cancer. The patient expressed understanding and agreement with the plan of care. All of her questions and concerns were addressed to the best of my ability. Total time I personally spent on visit and management today: ?15 minutes. Time spent included review of pertinent office notes in the electronic health record; review of laboratory and imaging results; review of personal family medical history; performing physical exam; discussing diagnosis and plan of care with the patient; documenting the encounter in the EMR. (2) Encounter for well woman exam with routine gynecological exam: Code(s): Z01.419 - Encounter for gynecological examination (general) (routine) without abnormal findings Category: Medical Plan Discussed: Current recommendations for pap smears per ASCCP guidelines. Breast awareness and periodic breast exams. Mammogram yearly. Maintain a healthy lifestyle including a well balanced diet and routine exercise. Patient verbalizes understanding and agrees to the plan of care. She was given opportunity to ask questions and all questions were answered to the best of my ability. RTO in one year for annual precision instrument maker and repairer examination. This note is constructed using voice recognition software. While every effort has been made to ensure accuracy, it trainer errors may have been included. Orders: Orders US pelvic and transvaginal Today N93.9 - Abnormal uterine and vaginal bleeding, unspecified Coding Level of Care Code Est Pt Level 2 (55014) Est Pt Prev Care 40-64y(10200) Diagnoses Abnormal uterine bleeding N93.9 Encounter for well woman exam with routine gynecological exam Z01.419
[2025-03-20 14:55] VITALS: BP 142/80; BMI 29.3
== END 2025-03-21 07:14 | disposition home or self-care (01) ==
LOC: HO.HWS 14:30
PROVIDERS: PCP Internal Medicine; Visit Provider Advanced Practice Midwife
DX: N93.9 Abnormal uterine and vaginal bleeding, unspecified (principal); Z01.419 Encounter for gynecological examination (general) (routine) without abnormal findings
CPT/HCPCS: 99212; 99396; 99459

== ENCOUNTER 2025-03-24 08:02 | Outpatient (REF) | payer OTHER, SELFPAY ==
[2025-03-24 08:28] LABS: MANUAL DIFF FLAG NO
[2025-03-24 09:14] LABS: Basophils Percent Auto 0.4 % (0-2); Eosinophils Absolute Auto 0.1 X10*3/uL (0.0-0.4); Hematocrit 37.2 % (37.0-47.0); Hemoglobin 12.5 g/dl (12.0-16.0); Imm Gran Abs Auto 0.01 X10*3/uL (0.00-0.03); Imm Gran Pct Auto 0.2 % (0.0-0.4); Lymphocytes Absolute Auto 1.8 X10*3/uL (1.2-4.9); Lymphocytes Percent Auto 32.2 % (20-40); Mean Corpuscular HGB Conc 33.6 g/dl (31.0-35.0); Mean Corpuscular Hemoglobin 29.4 pg (27.0-33.0); Mean Corpuscular Volume 87.5 fL (80.0-98.0); Mean Platelet Volume 9.5 fL (9.4-12.3); Monocytes Absolute Auto 0.5 X10*3/uL (0.1-1.2); Monocytes Percent Auto 8.2 % (2-11); Neutrophils Absolute Auto 3.1 x10*3/uL (2.0-8.3); Platelet Count 298 X10*3/uL (160-400); Red Blood Count 4.25 X10*6/uL (4.20-5.50); Red Cell Distribution Width 12.2 % (11.0-16.0); White Blood Count 5.5 X10*3/uL (4.8-10.8)
[2025-03-24 09:26] LABS: Estimated Average Glucose 105 mg/dL; Hemoglobin A1c % 5.3 % (<6.0)
[2025-03-24 10:07] LABS: Albumin Level 4.3 g/dL (3.5-5.0); Alkaline Phosphatase 70 U/L (39-117); Anion Gap 13 (12-20); Aspartate Amino Transferase 26 U/L (5-31); Bilirubin Total 0.4 mg/dL (0.0-1.0); Blood Urea Nitrogen 16 mg/dL (9-16); C Reactive Protein < 0.10 mg/dL (< or = 0.50); Calcium 9.4 mg/dL (8.4-10.2); Carbon Dioxide 27 mmol/L (22-29); Chloride 106 mmol/L (96-108); Cholesterol 183 mg/dL (<200); Estimated Glomerular Filt Rate > 60; Glucose Random 89 mg/dL (60-115); HDL Cholesterol 60 mg/dL (>40); Iron 80 mcg/dL (30-160); LDL Cholesterol Calculated 105 mg/dL (<100); Percent Iron Saturation 27 % (15-50); Potassium 4.2 mmol/L (3.3-5.1); Sodium 142 mmol/L (135-145); Total Iron Binding Capacity 299 mcg/dL (228-428); Total Protein 7.2 g/dL (6.5-8.0); Triglycerides 90 mg/dL (<150); Unsaturated Iron Binding 219 ug/dL
[2025-03-24 10:17] LABS: Ferritin 13 ng/mL (10-250); Insulin 4 uU/mL (2-29)
[2025-03-24 10:23] LABS: Folate 15.1 ng/mL (> or = 4.0); Vitamin B12 763 pg/mL (200-900)
[2025-03-24 10:29] LABS: Alanine Aminotransferase 32 U/L (0-31)
[2025-03-28 12:52] LABS: Zinc 76 mcg/dL (60-130)
[2025-03-28 21:59] LABS: Vitamin A 56 mcg/dL (38-98)
[2025-03-29 08:57] LABS: Vitamin B1 30 nmol/L (8-30)
== END 2025-03-24 08:03 | disposition home or self-care (01) ==
LOC: HO.LAB 08:02
PROVIDERS: Physician Assistant Surgical; PCP Internal Medicine; Visit Provider Student in an Organized Health Care Education/Training Program
DX: Z98.84 Bariatric surgery status (principal)
CPT/HCPCS: 36415; 80053; 80061; 82306; 82607; 82728; 82746; 83036; 83525; 83540; 84425; 84443; 84590; 84630; 85025; 86140

== ENCOUNTER 2025-03-27 11:35 | Outpatient (AMB) | payer OTHER, SELFPAY ==
[2025-03-27 11:32] VITALS: BMI 28.2
--- NOTE | 2025-03-27 11:32 | MHC.OFFVISWM ---
VS Expanded 03/27/25 11:32 Height 5 ft 1 in Weight 149 lb 8 oz BMI 28.2 Intake Visit Reasons: TELEPHONE PO LSG 03/16/24 Allergies environmental allergies Allergy (Intermediate, Verified 03/20/25 14:56) Itchy Eyes latex Allergy (Intermediate, Verified 03/20/25 14:56) Rash amoxicillin (From Augmentin) Adverse Reaction (Intermediate, Verified 03/20/25 14:56) Rash clavulanic acid (From Augmentin) Adverse Reaction (Intermediate, Verified 03/20/25 14:56) Rash Isopropanol buto bicarbonate Allergy (Intermediate, Uncoded 03/07/24 06:06) Rash Medication List - Last Reconciled 03/27/25 by HERMAN Coyle albuterol sulfate 90 mcg/actuation 2 puffs inhalation Q6H PRN atorvastatin 40 mg PO BEDTIME betamethasone dipropionate 0.05% 1 appl topical BID doxycycline hyclate 20 mg PO BID duloxetine 60 mg PO BEDTIME fluticasone propionate 50 mcg/actuation 1 spray intranasal DAILY loratadine (Claritin) 10 mg PO DAILY metronidazole 0.75% 1 appl topical BID montelukast 10 mg PO BEDTIME multivit with min-folic acid 200 mcg (Multivitamin Gummies) 1 tab PO DAILY vitamin A palmitate 10,000 units PO DAILY HPI Comments Details: This?is a?49?yo female who is s/p LSG 03/16/2024. Presents for 1yr post op visit. Weight loss of 3lbs since last OV 3mo ago.? No complaints of nausea, emesis, abdominal pain or reflux, or constipation. 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 Notes some easy bruising that continues, also coccyx pain from weight loss. Present meal plan includes: 1 Celebrate 4:1 shakes with 1 scoops in UAM Atkins bar 1 Celebrate 4:1 shakes with 1 scoops in UAM 4 forks protein, 4 forks katie/cauli Atkins bar started MVI Exercise routine includes: 30-45 min Tsering every other day, also biking 20-25min sometimes but finds this boring trying to do more walking- almost 3 miles per day, also went jogging for the first time difficulty working out while she recently had a sinus infection [facility] Medical History Hiatal hernia Elevated cholesterol YENNIFER on CPAP HTN (hypertension) Stress incontinence GERD (gastroesophageal reflux disease) Rheumatoid arthritis Abnormal ECG Migraines, neuralgic Anxiety Depression Asthma Surgical History Hx of laparoscopic partial gastrectomy History of esophagogastroduodenoscopy (EGD) [place] teeth removed H/O knee surgery Family History Father Diabetes HTN (hypertension) Hyperlipidemia Mother HTN (hypertension) Osteoporosis Uterine cancer, Onset Age: 66 Maternal Grandmother Colon cancer Social History Household Members: Spouse Household Members Other:: partner Housing: House Are you a primary client care manager to a significant other at home: No Do you presently have visiting nurse or other home services: No Alcohol intake: former Patient Tobacco Use Status: Former Tobacco user Tobacco use type: Cigarette Years Smoked: 5 Current occupational status: employed 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 Sexual orientation: Straight/Heterosexual Gender identity: Female Female Reproductive History Menstrual Age of Menarche: 13 Telehealth Telehealth Telehealth Platform: Telephone Location of provider rendering services: other Location of patient: address on file Patient Identification confirmed using: Name, : Yes Telehealth method: voice only Patient verbally consented to treatment: Yes Patient verbally consented to billing insurance company: Yes Patient informed of any privacy concerns related to visit: Yes Minutes spent on Phone/Video with Pt.: 16 Assessment & Plan Assessment & Plan (1) Overweight: Code(s): E66.3 - Overweight Category: Medical (2) S/P laparoscopic sleeve gastrectomy: Code(s): Z98.84 - Bariatric surgery status Category: Surgical Plan Suggested starting to incorporate strength training into exercise regimen to help with coccyx pain as well as body composition. Labs reviewed, Vit A/B1 levels still pending. RTC 6mo, encouraged pt to text me between visits with any concerns.
== END 2025-03-27 11:47 | disposition home or self-care (01) ==
LOC: HO.HBS 11:35
PROVIDERS: PCP Internal Medicine; Visit Provider Physician Assistant Surgical
DX: E66.3 Overweight (principal); Z68.28 Body mass index [BMI] 28.0-28.9, adult; Z90.3 Acquired absence of stomach [part of]; Z98.84 Bariatric surgery status
CPT/HCPCS: 98013

== ENCOUNTER 2025-04-24 13:47 | Outpatient (REF) | payer OTHER, SELFPAY ==
--- NOTE | ~2025-04-24 | US_ITS ---
CLINICAL HISTORY: N93.9 - Abnormal uterine and vaginal bleeding, unspecified Ultrasound of female pelvis Comparison: [place]/SR - US PELVIS TRANSABDOMINAL AND TRANSVAGINAL - 09/18/22 14:14 EST Technique: Grayscale ultrasound with assistance of color Doppler. Transabdominal scanning performed for overall anatomy. Transvaginal scanning performed for better anatomic delineation. Findings: Uterus is midline positioned, normal in size, 6.5 x 3.5 x 4.4 cm. Mildly heterogeneous myometrium, no uterine fibroid is seen. The endometrium is unremarkable, 8 mm in thickness, homogeneously hyperechoic, no focal lesion. Mildly heterogeneous hypoechoic lesion 7 x 3 mm in the anterior cervix, color Doppler demonstrates intralesional vascular flow. Normal right ovary, 2.2 x 2.0 x 1.7 cm. No suspicious ovarian lesion or abnormal vascular flow. Normal left ovary, 2.5 x 1.4 x 1.6 cm. No suspicious lesion or abnormal vascular flow. No free fluid in the pelvis. Impression: Indeterminate subcentimeter cervical lesion, intralesional vascular flow excludes nabothian cyst, neoplasm needs to be neoplasm needs to be excluded, recommend internal affairs investigator follow-up. Otherwise unremarkable. This document has been electronically signed by: Sweta Acevedo MD on 04/24/2025 14:57:28
--- OUTSIDE RECORDS SUMMARY | 2025-04-24 14:34 | XMS_ITS | Clinical Summary ---
Author Organization [facility] Address [address] [address] Phone Care Team Providers Care Advanced Nursing Professor Name Role Phone Epi [email or web address] [email or web address] rehabilitation hospital of new englandorderTalknorthside hospital [facility] Gustabo Lee DO Primary Care Provider [phone] Allergies Active Allergy Reactions Criticality Noted Date Comments Amoxicillin-Pot Clavulanate Rash Low 11/24/19 22 [place] And Derivatives 02/22/2018 Latex Hives 05/27/2021 Sulfa (Sulfonamide Antibiotics) Rash Low 03/28 Medications loratadine (CLARITIN) 10 mg tablet Take 10 mg by mouth daily. Active therapeutic multivitamin tablet Take 1 tablet by mouth daily. Active DULoxetine (CYMBALTA) 60 MG capsule 0 9 Active betamethasone dipropionate 0.05 % lotion 9 Active atorvastatin (LIPITOR) 40 MG tablet 0 Active losartan (COZAAR) 25 MG tablet Take 25 mg by mouth daily. 1 Active montelukast (SINGULAIR) 10 mg tablet Take 10 mg by mouth daily. 1 Active oxyBUTYnin (DITROPAN-XL) 10 MG 24 hr tablet Take 1 tablet by mouth every morning. 3 Active topiramate (TOPAMAX) 25 MG tablet Take 1 tablet by mouth every morning. 3 Active triamcinolone acetonide 0.025 % cream Apply topically 2 (two) times a day for 14 days. Do not exceed 14 days. 80 g 3 Active piroxicam (FELDENE) 10 MG capsuleIndication s:Fibromyalgia Take 1 capsule (10 mg total) by mouth as needed. 90 capsule 1 3 Active Active Problems Problem Noted Date Diagnosed Date Primary osteoarthritis of both knees 05/27/2021 Assessment & Plan (05/27/2021 2:11 PM EDT): Bilateral, right greater than left knee osteoarthritis. New weightbearing x-rays will be done. I will get back to her by phone call. She has a subacute right anserine bursitis. We discussed weight reduction quadricep strength and external knee support and the possibility of either an anserine bursal corticosteroid injection or an intra-articular cortisone injection followed by viscosupplementation. All questions were answered. Hypovitaminosis D 02/22/2018 Assessment & Plan (05/27/2021 2:09 PM EDT): Request a full chemistry profile to monitor her piroxicam usage, request a vitamin D level and continue vitamin D supplementation. No visits with results within 3 Month(s) from this visit. Latest known visit with results is: Office Visit on 11/15/2019 Component Date Value Ref Range Status Glucose 11/15/2019 Negative Negative Final Bilirubin 11/15/2019 Negative Negative Final Ketone 11/15/2019 Negative Negative Final Specific Davis 11/15/2019 >=1.030* 1.001 - 1.030 Final Blood 11/15/2019 3+* Negative Final pH 11/15/2019 6.0 5.0 - 8.0 Final Protein 11/15/2019 3+* Negative Final Urobilinogen 11/15/2019 0.2 mg/dL 0.2 mg/dL Final Nitrite 11/15/2019 Negative Negative Final Leukocytes 11/15/2019 Negative Negative Final Color 11/15/2019 Yellow Final Clarity 11/15/2019 Clear Final COLOR 11/15/2019 Yellow Yellow Final CLARITY 11/15/2019 HAZY Final GLUCOSE 11/15/2019 Negative Negative Final BILI 11/15/2019 Negative Negative Final KETONES 11/15/2019 Negative Negative Final SPECIFIC GRAVITY 11/15/2019 >1.030 1.005 - 1.030 Final BLOOD 11/15/2019 3+* Negative Final PH 11/15/2019 6.0 5.0 - 8.0 Final Protein-UA 11/15/2019 2+* Negative Final NITRITE 11/15/2019 Negative Negative Final Leukocyte esterase, ur 11/15/2019 Negative Negative Final SODIUM 11/15/2019 136 133 - 146 mmol/L Final CHLORIDE 11/15/2019 98 96 - 108 mmol/L Final POTASSIUM 11/15/2019 4.2 3.3 - 5.1 mmol/L Final CO2 11/15/2019 26 21 - 35 mmol/L Final BUN 11/15/2019 13 6 - 19 mg/dL Final CREATININE 11/15/2019 0.70 0.5 - 1.5 mg/dL Final GLUCOSE 11/15/2019 109* 70 - 99 mg/dL Final CALCIUM 11/15/2019 9.6 8.4 - 10.3 mg/dL Final EGFR 11/15/2019 106 >59 mL/min/1.73m2 Final If patient is black, multiply result by 1.159. Estimated glomerular filtration rate calculated using the CKD-EPI equation. ANION GAP 11/15/2019 16 10 - 20 mmol/L Final WBC 11/15/2019 50-100* NONE SEEN /hpf Final RBC 11/15/2019 50-100* NONE SEEN /hpf Final URINE EPITHELIAL 11/15/2019 5-10* NONE SEEN Final MUCUS 11/15/2019 NONE SEEN NONE SEEN /hpf Final BACTERIA 11/15/2019 2+* NONE SEEN /hpf Final Special Requests 11/15/2019 None Final GRAM STAIN 11/15/2019 Moderate GRAM NEGATIVE RODS Final Urine Culture 11/15/2019 >100,000 colony forming units per mL KLEBSIELLA PNEUMONIAE* Final Assessment & Plan (02/22/2018 1:50 PM EDT): Her last vitamin D level was very low at 19. Since then she's been taking the multivitamin that I recommended with 1000 units of vitamin D3. I've requested that we had her vitamin D level to the blood work requested by her primary care physician to be done this week. I also reviewed her last PTH level which was 37. Fall and fracture prevention strategies were discussed. Fibromyalgia 08/23/2017 Assessment & Plan (05/27/2021 2:10 PM EDT): Multiple tender points on exam and symptoms of stiffness and poor sleep are suggestive of active but stable fibromyalgia. She will continue and I refilled piroxicam and she will continue on 60 mg of Cymbalta daily. Vitamin D was encouraged as well as more importantly a low inflammatory caloric restricted diet and some regular low impact cardiovascular strengthening. Assessment & Plan (02/22/2018 1:51 PM EDT): She still has some tender points on exam little bit of morning stiffness and generalized fatigue is actually doing quite a bit better. She will continue on the piroxicam at 10 mg daily. Risks and benefits were discussed with her. I will review the lab work including a chemistry profile, CBC, and vitamin D level which are requested to be done next week. For now she will remain on current medication. Her primary care physician substituted Cymbalta now at 60 mg daily for her Lexapro and this helps her anxiety and pain quite a bit. She has had no nausea or vertigo from it. Assessment & Plan (08/23/2017 5:41 PM EST): Still active but stable and well-controlled on current medications. She does not take the piroxicam all that often so I don't think this should into her elevated blood pressure and it does help her on particular painful days. There are no signs or symptoms of inflammatory arthritis. She understands the contribution of weight and poor diet to fibromyalgia. All of her questions were answered. Internal medicine 50% of this 29 minute visit was spent in rigs-nu-paxy conversation with the patient going over strategies for blood pressure control and pain management. Essential hypertension 08/23/2017 Assessment & Plan (05/27/2021 2:10 PM EDT): BP 144/98 today. Resting pulse is 86 and regular. She is compliant with her antihypertensives. We discussed the need for primary care visit, weight reduction, sodium restriction and the relationship between NSAID use and elevated blood pressure. Assessment & Plan (08/23/2017 5:40 PM EST): We talked about her elevated blood pressure today as well as the possible pain generators in her chronic recurrent headaches as well as the long-term risk of cardiovascular disease. Her blood pressure was taken 3 times and was elevated on all 3 occasions with an average reading of 160/94. She will speak to her primary care physician about this and in the meantime she is to stay on a low sodium diet, start a walking program for 30-45 minutes 5-6 days a week and lookup the particulars regarding Mediterranean-style low inflammatory diet which is low in carbohydrates. High blood pressure 08/23/2017 Assessment & Plan (08/23/2019 4:19 PM EST): Patient's blood pressure in the right arm sitting was 144/92. She told me that she was on lisinopril but developed a cough saw her primary care physician stopped it but she was never restarted on an antihypertensive medication. I have requested lab work to be added to that she has scheduled for September and she understands the relationship between piroxicam and elevated blood pressure but she really wants to stay on the piroxicam. Duloxetine has also made a big difference for her but will not affect her blood pressure and this will continue unchanged. We talked about weight reduction and restriction of sodium and she will of course follow-up with her primary care physician and hopefully get a new antihypertensive agent. Other than 50% of this 28-minute visit was spent [id number] conversation with the patient going over her blood pressure, fibromyalgia syndrome as well as her right lateral epicondylitis. I gave her stretches to do as well as strengthening for the common extensor tendon sheath and made a recommendation for a counter brace and if the pain continues then she will call me for an injection into the right lateral epicondyle. Assessment & Plan (02/22/2018 1:50 PM EDT): Now that she is on a low-sodium diet and oral antihistamines her blood pressure is normal without specific pharmacologic intervention. She will stay on a low- sodium diet. Have him use for weight reduction were discussed. Social History Tobacco Use Types Packs/Day Years Used Date Smoking Tobacco: Never Smokeless Tobacco: Never Alcohol Use Standard Drinks/Week Comments Not Currently 0 (1 standard drink = 0.6 oz pur e alcohol) Education Answer Date Recorded Are you interested in more education? Not on kira e 01/22/2023 Are you concerned about learning? Not on file 01/22/2023 No 01/22/2023 No 01/22/2023 Digital Access Answer Date Recorded No 02/19/2023 No 02/19/2023 Reliable internet access at home? Not on file 02/19/2023 Device with a working camera? Not on file Comments Unknown Sex and Gender Information Value Date Recorded Sex Assigned at Female 05/26/2019 2:10 PM EDT Legal Sex Female 9:27 PM EDT Gender Identity Female 05/26/2019 2:10 PM EDT Sexual Orientation Straight 05/26/2019 2: 10 PM EDT Last Filed Vital Signs Vital Sign Reading Time Taken Comments Blood Pressure 157/91 04/19/2023 9:52 AM EDT Pulse 76 04/19/2023 9:52 AM EDT Temperature 36.9 C (98.4 F) 04/19/2023 9:52 AM EDT Respiratory Rate 19 04/19/2023 9:52 AM EDT Oxygen Saturation 99% 04/19/2023 9:52 AM EDT Inhaled Oxygen Concentration - - Weight 114.3 kg (252 lb) 11/24/2021 1:38 PM EST Height 154.9 cm (5' 0.98 ) 11/24/2021 1:38 PM ES T Body Mass Index 47.64 11/24/2021 1:38 PM EST Plan of Treatment Health Maintenance Due Date Last Done Comments LIPID PANEL 1975 DEPRESSION SCREENING 1988 HEPATITIS C SCREENING 1994 HIV ONE-TIME SCREENING (18-6 5 YEARS) 1994 PAP SMEAR 1997 MAMMOGRAM 2016 CREATININE LEVEL 11/15/2020 11/15/2019 POTASSIUM LEVEL 11/15/2020 11/15/2019 COLOGUARD 2021 COLONOSCOPY 2021 COLORECTAL CANCER SCREENING 2021 FIT TEST 2021 FOBT 2021 SIGMOIDOSCOPY 2021 VIRTUAL COLONOSCOPY 2021 BLOOD PRESSURE 10/20/2023 04/19/2023 COVID-19 VACCINE (2023-2 5 season) 2024 10/10/2021, 01/12/2021, 12/21/2020 Adult Td,Tdap Booster 06/30/2026 06/30/2016 SMOKING STATUS SCREENING (On ce After 26 Yrs) Completed 01/13/2023 HEPATITIS A VACCINES Aged Out No long er eligible based on patient's age to complete this topic HIB VACCINES Aged Out No longer eligi ble based on patient's age to complete this topic MENINGOCOCCAL VACCINES (ACWY) Aged Out No longer eligible based on patient's age to complete this topic MENINGOCOCCAL VACCINES (B) Aged Out N o longer eligible based on patient's age to complete this topic PNEUMOCOCCAL VACCINES (0-49 years) Aged Out No longer eligible b ased on patient's age to complete this topic Medical Devices Not on file Procedures Procedure Name Priority Date/Time Associated Diagnosis Comments BASIC METABOLIC PANEL Routine 11/15/2019 2:53 PM EST Symptoms of urinary tract infection from Last 3 Months or Most Recently Relevant to Health Maintenance Results * (ABNORMAL) Basic metabolic panel (11/15/2019 2:53 PM EST) SODIUM 136 133 - 146 mmol/L [facility] CHLORIDE 98 96 - 108 mmol/L [facility] POTASSIUM 4.2 3.3 - 5.1 mmol/L [facility] CO2 26 21 - 35 mmol/L [facility] BUN 13 6 - 19 mg/dL [facility] CREATININE 0.70 0.5 - 1.5 mg/dL [facility] GLUCOSE 109(H) 70 - 99 mg/dL [facility] CALCIUM 9.6 8.4 - 10.3 mg/dL [facility] EGFR 106 >59 mL/min/1.7 3m2 [facility] Comment:If patient is black, multiply result by 1.159. Estimated glomerular filtration rate calculated using the CKD-EPI equation. ANION GAP 16 10 - 20 mmol/L [facility] Blood 11/15/2019 2:53 PM EST 11/15/2019 5:13 PM EST us Parish Mc NP LAB BLOOD ORDERABLES Final Resu lt [address] [address] from Last 3 Months or Most Recently Relevant to Health Maintenance Insurance Member Subscriber Plan / Payer (Ef fective 2020-Present) Name:Izabella Lay Relation to Subscriber:Self Name:IZABELLA LAY Payer ID:Not on file Type:HMO Address: [place] [id number] [place], [place] [id number] [place], [place] [id number] [facility] Care Teams Advanced Nursing Professor Relationship Specialty Start Date End Date Gustabo Lee DO [email or web address] PCP - General Internal Medicine 08/21/17 Epi Kenyon MD [email or web address] Historical LMR Provider 07/12/17 Additional Source Comments The information contained in this document represents components of the legal health record. It is not the complete legal health record.[facility]
== END 2025-04-24 13:48 | disposition home or self-care (01) ==
LOC: HO.US 13:47
PROVIDERS: PCP Internal Medicine; Visit Provider Advanced Practice Midwife
DX: N93.9 Abnormal uterine and vaginal bleeding, unspecified (principal)
CPT/HCPCS: 76830; 76856

== ENCOUNTER → 2025-04-24 13:50 | Outpatient (BNV) | payer OTHER, SELFPAY | PROVIDERS: PCP Internal Medicine; Visit Provider Radiology Diagnostic Radiology | DX: N87.0 Mild cervical dysplasia (principal) | CPT/HCPCS: 76830; 76856 ==

== ENCOUNTER 2025-04-26 11:06 | Outpatient (AMB) | payer OTHER, SELFPAY ==
--- NOTE | 2025-04-26 11:07 | MHC.OFFVIS ---
Intake Visit Reasons: U/S f/u Medical Officer: Medical Officer Present Allergies environmental allergies Allergy (Intermediate, Verified 03/20/25 14:56) Itchy Eyes latex Allergy (Intermediate, Verified 03/20/25 14:56) Rash amoxicillin (From Augmentin) Adverse Reaction (Intermediate, Verified 03/20/25 14:56) Rash clavulanic acid (From Augmentin) Adverse Reaction (Intermediate, Verified 03/20/25 14:56) Rash Isopropanol buto bicarbonate Allergy (Intermediate, Uncoded 03/07/24 06:06) Rash Is last menstrual period known: Yes HPI Comments Details: Tele Health Visit Total time I personally spent on visit and management today: 18 minutes. Time spent included review of pertinent office notes in the electronic health record; review of laboratory and imaging results; review of personal family medical history; discussing diagnosis and plan of care with the patient; documenting the encounter in the EMR. Patient presents to discuss: Ultrasound findings history of abnormal uterine bleeding (HMB), bled 04/04/25 x 7d, started bleeding today. [facility] Medical History (Updated 04/26/25 @ 12:21 by Shanique Dunne CNM) Lesion of cervix Hiatal hernia Elevated cholesterol YENNIFER on CPAP HTN (hypertension) Stress incontinence GERD (gastroesophageal reflux disease) Rheumatoid arthritis Abnormal ECG Migraines, neuralgic Anxiety Depression Asthma Surgical History Hx of laparoscopic partial gastrectomy History of esophagogastroduodenoscopy (EGD) [place] teeth removed H/O knee surgery Family History Father Diabetes HTN (hypertension) Hyperlipidemia Mother HTN (hypertension) Osteoporosis Uterine cancer, Onset Age: 66 Maternal Grandmother Colon cancer Social History Household Members: Spouse Household Members Other:: partner Housing: House Are you a primary geriatric personal care aide to a significant other at home: No Do you presently have visiting nurse or other home services: No Alcohol intake: former Patient Tobacco Use Status: Former Tobacco user Tobacco use type: Cigarette Years Smoked: 5 Current occupational status: employed 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 Sexual orientation: Straight/Heterosexual Gender identity: Female Female Reproductive History Menstrual Age of Menarche: 13 Review of Systems Const All systems reviewed & are unremarkable except as noted in HPI and below Endo Reports no additional complaints Physical Exam Const General: cooperative, healthy appearing and no acute distress Psych Appearance: well kempt Attitude: cooperative Thought process: Normal thought process present Telehealth Telehealth Telehealth Platform: [employer] Location of provider rendering services: practice address Location of patient: address on file Patient Identification confirmed using: Name, : Yes Telehealth method: video Patient verbally consented to treatment: Yes Patient verbally consented to billing insurance company: Yes Patient informed of any privacy concerns related to visit: Yes Results Reviewed Results Reviewed: [address] [address] Ultrasound Report Signed with Addenda Patient: Belgica Lay MR#: [id number] : 1975 Acct:[id number] Age/Sex: 49 / F ADM Date: 04/24/25 Loc: HO. Attending Dr: Shanique Dunne CNM Ordering Physician: Shanique Dunne CNM Date of Service: 04/24/25 Procedure(s): US pelvic and transvaginal Accession Number(s): [id number] cc: Gustabo Lee MD; Shanique Dunne CNM~ ADDENDUMThis document has been electronically signed by: Sweta Acevedo MD on 04/24/2025 14:57:28 ADDENDUM: Receipt of this report by the clinical staff was confirmed with Roxanna Kraus LPN on Apr 24, 2025 16:21:00 EDT. This document has been electronically signed by: Bebeto Sagastume on 04/24/2025 16:22:10 Addendum Dictated By: Sweta Acevedo MD Addendum Signed By: <Electronically signed by Sweta Acevedo MD in OV> 04/24/251622 Addendum Cosigned By: DD/ TD/TT: 04/24/25 CLINICAL HISTORY: N93.9 - Abnormal uterine and vaginal bleeding, unspecified Ultrasound of female pelvis Comparison: [place]/SR - US PELVIS TRANSABDOMINAL AND TRANSVAGINAL - 09/18/22 14:14 EST Technique: Grayscale ultrasound with assistance of color Doppler. Transabdominal scanning performed for overall anatomy. Transvaginal scanning performed for better anatomic delineation. Findings: Uterus is midline positioned, normal in size, 6.5 x 3.5 x 4.4 cm. Mildly heterogeneous myometrium, no uterine fibroid is seen. The endometrium is unremarkable, 8 mm in thickness, homogeneously hyperechoic, no focal lesion. Mildly heterogeneous hypoechoic lesion 7 x 3 mm in the anterior cervix, color Doppler demonstrates intralesional vascular flow. Normal right ovary, 2.2 x 2.0 x 1.7 cm. No suspicious ovarian lesion or abnormal vascular flow. Normal left ovary, 2.5 x 1.4 x 1.6 cm. No suspicious lesion or abnormal vascular flow. No free fluid in the pelvis. Impression: Indeterminate subcentimeter cervical lesion, intralesional vascular flow excludes nabothian cyst, neoplasm needs to be neoplasm needs to be excluded, recommend bridge saw operator follow-up. Otherwise unremarkable. This document has been electronically signed by: Sweta Acevedo MD on 04/24/2025 14:57:28 Dictated By: Sweta Acevedo MD Signed By: <Electronically signed by Sweta Acevedo MD in OV> 04/24/25 1458 DD/ 56 TD/TT: 04/24/251456 Marine Design Engineer: Assessment & Plan Assessment & Plan (1) Lesion of cervix: Code(s): N88.9 - Noninflammatory disorder of cervix uteri, unspecified Category: Medical Plan: Discussed: Ultrasound findings- Impression: Indeterminate subcentimeter cervical lesion, intralesional vascular flow excludes nabothian cyst, neoplasm needs to be neoplasm needs to be excluded, recommend bridge saw operator follow-up. Otherwise unremarkable. Recommended colposcopy with ECC/EMB. The patient expressed understanding and agreement with the plan of care. All of her questions and concerns were addressed to the best of my ability. Appointment to be scheduled in office with Dr. Chaney. (2) Abnormal uterine bleeding: Code(s): N93.9 - Abnormal uterine and vaginal bleeding, unspecified Plan Counseled regarding abnormal bleeding pattern, recommended she have an endometrial biopsy to rule out any abnormal cells including atypia, precancer or cancer. The patient expressed understanding and agreement with the plan of care. All of her questions and concerns were addressed to the best of my ability. Appointment to be scheduled with Dr. Chaney for procedure. This note is constructed using voice recognition software. While every effort has been made to ensure accuracy, deli manager errors may have been included. Coding Level of Care Code Tele Est Pt Level 3 (68214) Diagnoses Lesion of cervix N88.9 Abnormal uterine bleeding N93.9
--- OUTSIDE RECORDS SUMMARY | 2025-04-26 11:59 | XMS_ITS | Clinical Summary ---
Author Organization [facility] Address [address] [address] Phone Care Team Providers Care Data Typist Name Role Phone Epi [email or web address] [email or web address] Gustabo Lee DO Primary Care Provider [phone] Allergies Active Allergy Reactions Criticality Noted Date Comments Amoxicillin-Pot Clavulanate Rash Low 11/24/19 22 [place] And Derivatives 02/22/2018 Latex Hives 05/27/2021 Sulfa [...] Final Ketone 11/15/2019 Negative Negative Final Specific [place] 11/15/2019 >=1.030* 1.001 - 1.030 Final Blood [...] this 29 minute visit was spent in djcz-mg-[id number] conversation with the patient going over strategies [...] 50% of this 28-minute visit was spent [id number]-[id number] conversation with the patient going over her [...] EST) SODIUM 136 133 - 146 mmol/L [facility] CHLORIDE 98 96 - 108 mmol/L [facility] POTASSIUM 4.2 3.3 - 5.1 mmol/L [facility] CO2 26 21 - 35 mmol/L [facility] BUN 13 6 - 19 mg/dL [facility] CREATININE 0.70 0.5 - 1.5 mg/dL [facility] GLUCOSE 109(H) 70 - 99 mg/dL [facility] CALCIUM 9.6 8.4 - 10.3 mg/dL [facility] EGFR 106 >59 mL/min/1.7 3m2 [facility] Comment:If patient is black, multiply result by 1.159. Estimated glomerular filtration rate calculated using the CKD-EPI equation. ANION GAP 16 10 - 20 mmol/L [facility] Blood 11/15/2019 2:53 PM EST 11/15/2019 5:13 PM EST us Parish Mc NP LAB BLOOD ORDERABLES Final Resu lt [address] [address] from Last 3 Months or Most Recently Relevant to Health Maintenance Insurance Member Subscriber Plan / Payer (Ef fective 2020-Present) Name:Izabella Lay Relation to Subscriber:Self Name:IZABELLA LAY Payer ID:Not on file Type:HMO Address: [place] [id number] [place], [place] [address] [place], [place] [address]O [facility] [employer] Care Teams Data Typist Relationship Specialty Start Date End Date Gustabo Lee DO [email or web address] PCP - General Internal Medicine 08/21/17 Epi Kenyon MD [email or web address] Historical LMR Provider 07/12/17 Additional Source Comments The information contained in this document represents components of the legal health record. It is not the complete legal health record.[facility]
== END 2025-04-26 13:01 | disposition home or self-care (01) ==
LOC: HO.HWS 11:06
PROVIDERS: PCP Internal Medicine; Visit Provider Advanced Practice Midwife
DX: N88.9 Noninflammatory disorder of cervix uteri, unspecified (principal); N93.9 Abnormal uterine and vaginal bleeding, unspecified
CPT/HCPCS: 99213

== ENCOUNTER 2025-05-08 12:56 | Outpatient (AMB) | payer OTHER, SELFPAY ==
--- NOTE | 2025-05-08 12:57 | A.OFFVIS_ITS ---
Vital Signs 05/08/25 12:58 Height 5 ft 1 in Weight 154 lb 1.65 oz BMI 29.1 BP 122/66 Blood Pressure Location Lt brachial Position Sitting Pulse 72 Pulse Source Pulse Oximeter Pulse Oximetry (%) 97 Oxygen Delivery Method Room Air Intake Visit Reasons: Other specified abnormal findings of blood chemis Intake Note: New patient present today for Other specified abnormal findings of blood chemistry. Parcel Carrier Required: No Accompanied by: Self / Same As Patient Allergies environmental allergies Allergy (Intermediate, Verified 05/08/25 13:01) Itchy Eyes latex Allergy (Intermediate, Verified 05/08/25 13:01) Rash amoxicillin (From Augmentin) Adverse Reaction (Intermediate, Verified 05/08/25 13:01) Rash clavulanic acid (From Augmentin) Adverse Reaction (Intermediate, Verified 05/08/25 13:01) Rash Isopropanol buto bicarbonate Allergy (Intermediate, Uncoded 05/08/25 13:01) Rash Medication List - Last Reconciled 05/08/25 by Lynnette Dinero MD albuterol sulfate 90 mcg/actuation 2 puffs inhalation Q6H PRN atorvastatin 40 mg PO BEDTIME betamethasone dipropionate 0.05% 1 appl topical BID doxycycline hyclate 20 mg PO BID duloxetine 60 mg PO BEDTIME fluticasone propionate 50 mcg/actuation 1 spray intranasal DAILY loratadine (Claritin) 10 mg PO DAILY metronidazole 0.75% 1 appl topical BID montelukast 10 mg PO BEDTIME multivit with min-folic acid 200 mcg (Multivitamin Gummies) 1 tab PO DAILY vitamin A palmitate 10,000 units PO DAILY HPI Comments Details: 49-year-old female coming in today for initial evaluation of elevated PTH level. Chart review shows that she has had total calcium levels ranging anywhere from 9-9.8 since 2019 with a albumin mostly around 4.1-4.5, corrected calcium would be even lower. Most recent blood work from 03/24/2025 showed normal kidney function with a EGFR greater than 60, calcium of 9.4, albumin of 4.3, corrected calcium would be 9.1, vitamin-D 50, TSH 0.8, PTH level done October 2024 was elevated at 119. History of laparoscopic sleeve gastrectomy 03/16/2024 Has lost 120 lbs since surgery Kidney stones: no Fractures: left elbow 5th grade fell from bike, left lateral tibia stepped wrong 2019 wore a boot , fingers fractured during basketball Mother: osteoporosis Vitamin D supplements: 1000 units daily in Celebrate multivitamin Calcium supplements: none , almond milk 16 oz in shakes twice a day, cheese: 2-3 times a week, no yogurt, green leafy vegetables lots , protein shake also has calcium in it 620 mg whihc she takes twice a day Physical exam General: sitting comfortably in no acute distress HEENT: normocephalic/atraumatic, Neck: supple, symmetrical, no thyromegaly , no dorsocervical or supraclavicular fat pads Cardiac: normal heart sounds Pulm: normal breath sounds B/L, no added breath sounds Abd: not distended, no tenderness Extremities: no edema, no signs of myxedema Laboratory Tests 04/15/19 10/14/19 11/22/21 08:56 08:49 08:16 Creatinine Estimated GFR Calcium 9.2 9.0 9.6 Albumin 4.1 4.2 4.1 25-OH Vitamin D Total TSH PTH Intact 03/28/22 12/04/23 02/29/24 09:27 08:55 07:19 Creatinine Estimated GFR Calcium 9.4 9.5 9.8 Albumin 4.3 4.2 4.2 25-OH Vitamin D Total TSH PTH Intact 03/07/24 03/08/24 09/26/24 11:27 05:23 06:31 Creatinine Estimated GFR Calcium 9.5 9.6 9.3 Albumin 4.0 25-OH Vitamin D Total 60.1 TSH PTH Intact 99.4 H 11/16/24 03/24/25 14:34 08:26 Creatinine 0.67 Estimated GFR > 60 Calcium 9.4 Albumin 4.3 25-OH Vitamin D Total 50.0 TSH 0.80 PTH Intact 119.0 H [facility] Medical History (Updated 05/08/25 @ 13:37 by Lynnette Dinero MD) Elevated parathyroid hormone Lesion of cervix Hiatal hernia Elevated cholesterol YENNIFER on CPAP HTN (hypertension) Stress incontinence GERD (gastroesophageal reflux disease) Rheumatoid arthritis Abnormal ECG Migraines, neuralgic Anxiety Depression Asthma Surgical History Hx of laparoscopic partial gastrectomy History of esophagogastroduodenoscopy (EGD) [place] teeth removed H/O knee surgery Family History Father Diabetes HTN (hypertension) Hyperlipidemia Mother HTN (hypertension) Osteoporosis Uterine cancer, Onset Age: 66 Maternal Grandmother Colon cancer Social History Household Members: Spouse Household Members Other:: partner Housing: House Are you a primary intensive care anaesthetist to a significant other at home: No Do you presently have visiting nurse or other home services: No Alcohol intake: former Patient Tobacco Use Status: Former Tobacco user Tobacco use type: Cigarette Years Smoked: 5 Current occupational status: employed 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 Sexual orientation: Straight/Heterosexual Gender identity: Female Female Reproductive History Menstrual Age of Menarche: 13 Physical Exam Vital Signs: Last Vital Signs Pulse 72 05/08/25 12:58 BP 122/66 05/08/25 12:58 Pulse Ox 97 05/08/25 12:58 Oxygen Delivery Method Room Air 05/08/25 12:58 BMI result Body Mass Index 29.1 Assessment & Plan Assessment & Plan (1) Elevated parathyroid hormone: Code(s): R79.89 - Other specified abnormal findings of blood chemistry Category: Medical Plan: 49-year-old female coming in today to establish care for initial evaluation for elevated PTH level.Chart review shows that she has had total calcium levels ranging anywhere from 9-9.8 since 2019 with a albumin mostly around 4.1-4.5, corrected calcium would be even lower. Most recent blood work from 03/24/2025 showed normal kidney function with a EGFR greater than 60, calcium of 9.4, albumin of 4.3, corrected calcium would be 9.1, vitamin-D 50, TSH 0.8, PTH level done October 2024 was elevated at 119. She has never had any kidney stones, no elevated calcium levels in the chart: No history of hypercalciuria or osteoporosis or fragility fracture. I am not sure why the PTH level was checked. Most commonly PTH elevations are seen with vitamin-D deficiency or poor calcium intake. While she has good vitamin-D levels, she has a history of sleeve gastrectomy back in February 2024 so even though she is taking good amount of nutritional intake of calcium, not all of it might be getting absorbed. So most likely could be secondary hyperparathyroidism in the setting of poor absorption of calcium. Another point to be noted is that I have recently had some PTH elevations on our assay which have been variable so I would like to repeat her blood work 1st at [facility]. If she continues to show elevated PTH level at [facility], then we will proceed with doing a 24 hour urine evaluation to check for hypercalciuria, possibly a kidney ultrasound and a bone density scan. Plan: -ordered repeat blood work to be done at [facility] with calcium, albumin, ionized calcium, magnesium, phosphorus, creatinine, vitamin-D, PTH level, we will reach out with the results -follow up in 5-6 weeks Plan I spent 45 minutes in reviewing the record, seeing the patient and documenting in the medical record. Orders: Orders Calcium Today R79.89 - Other specified abnormal findings of blood chemistry Magnesium Today R79.89 - Other specified abnormal findings of blood chemistry Albumin Level Today R79.89 - Other specified abnormal findings of blood chemistry Calcium, Ionized Today R79.89 - Other specified abnormal findings of blood chemistry Phosphorus Today R79.89 - Other specified abnormal findings of blood chemistry Parathyroid Hormone Intact Today R79.89 - Other specified abnormal findings of blood chemistry Vitamin D 25-OH Total Today R79.89 - Other specified abnormal findings of blood chemistry Creatinine Today R79.89 - Other specified abnormal findings of blood chemistry Patient Instructions: Do blood work at [facility] , [address] [place] [address] , please make sure they fax results to us Then once your results are all available, please expect a call from us regarding the second part of the work This may involve doing a 24hr urine collection with blood work done the same morning as you hand in the urine at [facility] 24 hr urine collection instructions You have been asked to collect your urine for 24 hours to assess for calcium excretion. You must choose a 24 hour period of time when you will be home. The morning of the first day, DISCARD the FIRST morning void and then note the time. You will collect every single void from then on for 24 hours. For example, if you wake up at 6am and urinate, flush down that void. You will then collect every drop of urine all day and all night through 6am the following day. You will urinate one last time at 6am for the collection. The jug of urine must be kept in the refrigerator until you bring it to the lab. Coding Level of Care Code New Pt Level 4 (28319) Diagnoses Elevated parathyroid hormone R79.89 Time Spent (min) 45
[2025-05-08 12:58] VITALS: BP 122/66; PULSE 72; O2SAT 97; BMI 29.1
--- OUTSIDE RECORDS SUMMARY | 2025-05-08 13:41 | XMS_ITS | Clinical Summary ---
Author Organization [facility] Address [address] [address] Phone Care Team Providers Care Senior Manager Quality Assurance Name Role Phone Epi [email or web address] [email or web address] Gustabo Lee DO Primary Care Provider [phone] Allergies Active Allergy Reactions Criticality Noted Date Comments Amoxicillin-Pot Clavulanate Rash Low 11/24/19 22 [place] And Derivatives 02/22/2018 Latex Hives 05/27/2021 Sulfa [...] Final Ketone 11/15/2019 Negative Negative Final Specific [place] 11/15/2019 >=1.030* 1.001 - 1.030 Final Blood [...] this 29 minute visit was spent in otmp-jr-dtuz conversation with the patient going over strategies [...] 50% of this 28-minute visit was spent [id number] conversation with the patient going over her [...] EST) SODIUM 136 133 - 146 mmol/L [facility] CHLORIDE 98 96 - 108 mmol/L [facility] POTASSIUM 4.2 3.3 - 5.1 mmol/L [facility] CO2 26 21 - 35 mmol/L [facility] BUN 13 6 - 19 mg/dL [facility] CREATININE 0.70 0.5 - 1.5 mg/dL [facility] GLUCOSE 109(H) 70 - 99 mg/dL [facility] CALCIUM 9.6 8.4 - 10.3 mg/dL [facility] EGFR 106 >59 mL/min/1.7 3m2 [facility] Comment:If patient is black, multiply result by 1.159. Estimated glomerular filtration rate calculated using the CKD-EPI equation. ANION GAP 16 10 - 20 mmol/L [facility] Blood 11/15/2019 2:53 PM EST 11/15/2019 5:13 PM EST us Parish Mc NP LAB BLOOD ORDERABLES Final Resu lt [address] [address] from Last 3 Months or Most Recently Relevant to Health Maintenance Insurance Member Subscriber Plan / Payer (Ef fective 2020-Present) Name:Izabella Lay Relation to Subscriber:Self Name:IZABELLA LAY Payer ID:Not on file Type:HMO Address: [place] [id number] [place], [place] [address] [place], [place] [address]O [facility] [employer] Care Teams Senior Manager Quality Assurance Relationship Specialty Start Date End Date Gustabo Lee DO [email or web address] PCP - General Internal Medicine 08/21/17 Epi Kenyon MD [email or web address] Historical LMR Provider 07/12/17 Additional Source Comments The information contained in this document represents components of the legal health record. It is not the complete legal health record.[facility]
== END 2025-05-08 13:42 | disposition home or self-care (01) ==
LOC: HO.ENCR 12:57
PROVIDERS: PCP Internal Medicine; Visit Provider Student in an Organized Health Care Education/Training Program
DX: R79.89 Other specified abnormal findings of blood chemistry (principal)
CPT/HCPCS: 99204

== ENCOUNTER 2025-05-15 14:10 | Outpatient (REF) | payer OTHER, SELFPAY ==
[2025-05-15 21:41] LABS: CT PCR NOT DETECTED (Not Detect.); NG PCR NOT DETECTED (Not Detect.)
== END 2025-05-15 14:11 | disposition home or self-care (01) ==
LOC: HO.LNP 14:10
PROVIDERS: PCP Internal Medicine; Visit Provider Obstetrics & Gynecology
DX: N93.9 Abnormal uterine and vaginal bleeding, unspecified (principal); N88.9 Noninflammatory disorder of cervix uteri, unspecified; Z32.02 Encounter for pregnancy test, result negative
CPT/HCPCS: 58100; 81025; 87491; 87591; 87626; 88175; 88305

== ENCOUNTER 2025-05-15 14:10 | Outpatient (AMB) | payer OTHER, SELFPAY ==
--- NOTE | 2025-05-15 14:13 | A.OFFVIS_ITS ---
Vital Signs 05/15/25 14:16 Height 5 ft 1 in Weight 153 lb BMI 28.9 Intake Visit Reasons: Cervical polyp/colpo/emb Senior Courtroom Clerk Required: No Healthcare Receptionist: Healthcare Receptionist Present Accompanied by: Self / Same As Patient Allergies environmental allergies Allergy (Intermediate, Verified 05/15/25 14:17) Itchy Eyes latex Allergy (Intermediate, Verified 05/15/25 14:17) Rash amoxicillin (From Augmentin) Adverse Reaction (Intermediate, Verified 05/15/25 14:17) Rash clavulanic acid (From Augmentin) Adverse Reaction (Intermediate, Verified 05/15/25 14:17) Rash Isopropanol buto bicarbonate Allergy (Intermediate, Uncoded 05/08/25 13:01) Rash Is last menstrual period known: Yes Last menstrual period: 07/25/20 Post menopausal: No Patient : No Do you need a note to return to daycare/school/sports/work: Yes (for surgery on wednesday) HPI Comments Details: Presenting referred from Shanique Dunne CNM regarding abnormal uterine bleeding. The following workup has been done so far; H&H =12.5/37.2 TSH within normal Co testing 08/18 was negative Last mammogram in 11/21 was BI-RADS 1 04/24/2025 pelvic ultrasound showed the following: Uterus is midline positioned, normal in size, 6.5 x 3.5 x 4.4 cm. Mildly heterogeneous myometrium, no uterine fibroid is seen. The endometrium is unremarkable, 8 mm in thickness, homogeneously hyperechoic, no focal lesion. Mildly heterogeneous hypoechoic lesion 7 x 3 mm in the anterior cervix, color Doppler demonstrates intralesional vascular flow. Normal right ovary, 2.2 x 2.0 x 1.7 cm. No suspicious ovarian lesion or abnormal vascular flow. Normal left ovary, 2.5 x 1.4 x 1.6 cm. No suspicious lesion or abnormal vascular flow. No free fluid in the pelvis. Impression: Indeterminate subcentimeter cervical lesion, intralesional vascular flow excludes nabothian cyst, neoplasm needs to be neoplasm needs to be excluded, recommend cutter machine tender follow-up. Otherwise unremarkable. [facility] Medical History Elevated parathyroid hormone Lesion of cervix Hiatal hernia Elevated cholesterol YENNIFER on CPAP HTN (hypertension) Stress incontinence GERD (gastroesophageal reflux disease) Rheumatoid arthritis Abnormal ECG Migraines, neuralgic Anxiety Depression Asthma Surgical History Hx of laparoscopic partial gastrectomy History of esophagogastroduodenoscopy (EGD) [place] teeth removed H/O knee surgery Family History Father Diabetes HTN (hypertension) Hyperlipidemia Mother HTN (hypertension) Osteoporosis Uterine cancer, Onset Age: 66 Maternal Grandmother Colon cancer Social History Household Members: Spouse Household Members Other:: partner Housing: House Are you a primary medicare interviewer to a significant other at home: No Do you presently have visiting nurse or other home services: No Alcohol intake: current Alcohol intake frequency: does not drink Comment: 1x weekly Patient Tobacco Use Status: Former Tobacco user Tobacco use type: Cigarette Years Smoked: 5 service: Yes Current occupational status: employed 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 Sexual orientation: Straight/Heterosexual Gender identity: Female Female Reproductive History Menstrual Age of Menarche: 13 Duration of menses: 6-7 days Date of last menstrual period: 07/25/20 control method: none Total pregnancies: 2 Full term: 2 Review of Systems Const All systems reviewed & are unremarkable except as noted in HPI and below Card Reports as per HPI and Reports no additional complaints Resp Reports as per HPI and Reports no additional complaints GI Reports as per HPI and Reports no additional complaints Reports as per HPI Physical Exam Vital Signs: BMI result Body Mass Index 28.9 Const General: cooperative, healthy appearing and comfortable External Female Exam: normal external appearance and normal appearance of the urethra Speculum Exam - Vagina: normal appearance of the vagina, normal palpation, no lesions and no masses Speculum Exam - Cervix: normal appearance of the cervix, normal palpation, no lesions, no masses and nontender Bimanual exam- vagina & uterus: normal bimanual exam, normal palpation, uterine size normal, normal palpation, uterine shape normal, No Cervical tenderness present and non-tender Bimanual Exam- Adnexa, other: normal adnexae Office Procedures Endometrial Biopsy Details: The patient was counseled regarding the indication and benefits of endometrial sampling to rule out endometrial pathology including not limited to endometrial hyperplasia or endometrial cancer and others; The alternatives (Either do nothing vs. hysteroscopy D&C) & the risks were discussed with the patient including but not limited: pain, uterine perforation, bleeding, infection, possible injury to bladder, bowel, ureter, possible need for blood transfusion with all its possible risks. The patient verbalized understanding all questions answered and signed consent. Urine test done in the office was negative The patient was placed into the dorsal lithotomy position; a speculum was inserted in the vagina. Using aseptic technique for the procedure, the cervix was cleansed with Betadine. The anterior lip of the cervix was grasped with a single tooth tenaculum. The uterus was sounded to 7 cm with a 4 mm Pipelle was used, this was followed by endocervical curettage. Tissues samples were obtained and placed in formalin, in a patient labeled container and sent to the pathology department. At the end of the procedure, there was minimal bleeding noted The patient tolerated the procedure well and was discharged in good condition with the following instructions: Nothing in the vagina until the bleeding stops. No sex until the bleeding stops, to call if any of the following occurs: fever (>100.4), flu-like symptoms, abdominal pain, heavy bleeding, four smelling vaginal discharge. The patient was instructed to schedule a Follow up appointment in 2 weeks to discuss pathology results of the biopsy and treatment options. This note was generated with a voice recognition program. Some errors may have been overlooked during the review of this note. Sometimes these errors may a ffect the content or meaning of a given sentence. [id number] Biopsy Results AMB Test Urine AMB Test Urine Negative Last Edit by Rose Aldana CMA on 14:20 Results Reviewed Results Reviewed: Laboratory Last Values Tst Clinic Negative 05/15/25 14:19 Assessment & Plan Assessment & Plan (1) Abnormal uterine bleeding (AUB): Code(s): N93.9 - Abnormal uterine and vaginal bleeding, unspecified Category: Medical Plan: GC and chlamydia taken. Discussed with the patient the different causes of abnormal bleeding including thyroid disorders, uterine and ovarian pathology, endometrial hyperplasia, carcinoma and other potential causes. Discussed with the patient the work up including CBC (to r/o anemia), TSH, pelvic Ultrasound, endometrial sampling to r/o endometrial pathology. Recommended to the patient that the next step is an endometrial sampling via hysteroscopy D&C possible polypectomy versus endometrial biopsy to r/o endometrial pathology including hyperplasia or cancer. All the pros and cons risks and benefits of each approach were discussed with the patient, endometrial biopsy being less invasive, office procedure with less sensitivity and inability diagnose a polyp and removal versus hysteroscopy done under anesthesia more invasive more sensitive to endometrial cancer and possibility of diagnosing and endometrial polyp with the possibility of polypectomy. All questions were answered pt verbalized understanding and decided to proceed with EMB, procedure done see procedure note (2) Abnormal cervix finding: Comment: On pelvic ultrasound Code(s): N88.9 - Noninflammatory disorder of cervix uteri, unspecified Category: Medical Plan: Discussed with the patient the finding on ultrasound showing a cervical lesion with flow. Differential diagnosis discussed with the patient . Co testing, GC/CT and ECC done, see procedure note Pelvic MRI ordered Directions given the patient to schedule a 2 week follow-up appointment Orders: Orders MR pelvis w con Today N88.9 - Noninflammatory disorder of cervix uteri, unspecified AMB HCG Urine Test Today Z32.02 - Encounter for test, result negative AMB Endometrial Biopsy Today N88.9 - Noninflammatory disorder of cervix uteri, unspecified, N93.9 - Abnormal uterine and vaginal bleeding, unspecified Coding Level of Care Code Est Pt Level 3 (29635) Procedure Only Diagnoses Abnormal uterine bleeding (AUB) N93.9 Abnormal cervix finding N88.9 CPT Codes Endometrial Biopsy - CPT: 24102-Xmdbvyqjssa Biopsy ([id number]) Comment EMB with ECC done
[2025-05-15 14:16] VITALS: BMI 28.9
== END 2025-05-15 14:58 | disposition home or self-care (01) ==
LOC: HO.HWS 14:10
PROVIDERS: PCP Internal Medicine; Visit Provider Obstetrics & Gynecology
DX: N93.9 Abnormal uterine and vaginal bleeding, unspecified (principal); N88.9 Noninflammatory disorder of cervix uteri, unspecified; Z32.02 Encounter for pregnancy test, result negative
CPT/HCPCS: 58100; 99213

== ENCOUNTER 2025-06-01 11:24 | Outpatient (AMB) | payer OTHER, SELFPAY ==
--- NOTE | 2025-06-01 11:30 | MHC.OFFVIS ---
Vital Signs 06/01/25 11:31 Height 5 ft 1 in Weight 153 lb BMI 28.9 Intake Visit Reasons: pre op Pilot Captain: Pilot Captain Present Allergies environmental allergies Allergy (Intermediate, Verified 05/15/25 14:17) Itchy Eyes latex Allergy (Intermediate, Verified 05/15/25 14:17) Rash amoxicillin (From Augmentin) Adverse Reaction (Intermediate, Verified 05/15/25 14:17) Rash clavulanic acid (From Augmentin) Adverse Reaction (Intermediate, Verified 05/15/25 14:17) Rash Isopropanol buto bicarbonate Allergy (Intermediate, Uncoded 05/08/25 13:01) Rash Is last menstrual period known: Yes Last menstrual period: 07/25/20 Post menopausal: No Patient : No Do you need a note to return to daycare/school/sports/work: Yes (for surgery on wednesday) HPI Comments Details: Presenting for follow-up post endometrial biopsy. Last co testing was negative EMB/ECC pathology showed the following: A. Endometrium, biopsy: Benign proliferative endometrium with ectatic vessels, fragments consistent with benign endometrial polyp, benign endocervical polyp with cysts, and benign endocervical glandular and squamous epithelium; no atypia or carcinoma. B. Endocervix, curettage: Benign endocervical glandular and squamous mucosa [facility] Medical History Elevated parathyroid hormone Lesion of cervix Hiatal hernia Elevated cholesterol YENNIFER on CPAP HTN (hypertension) Stress incontinence GERD (gastroesophageal reflux disease) Rheumatoid arthritis Abnormal ECG Migraines, neuralgic Anxiety Depression Asthma Surgical History Hx of laparoscopic partial gastrectomy History of esophagogastroduodenoscopy (EGD) Universal teeth removed H/O knee surgery Family History Father Diabetes HTN (hypertension) Hyperlipidemia Mother HTN (hypertension) Osteoporosis Uterine cancer, Onset Age: 66 Maternal Grandmother Colon cancer Social History Household Members: Spouse Household Members Other:: partner Housing: House Are you a primary care program director to a significant other at home: No Do you presently have visiting nurse or other home services: No Alcohol intake: current Alcohol intake frequency: does not drink Comment: 1x weekly Patient Tobacco Use Status: Former Tobacco user Tobacco use type: Cigarette Years Smoked: 5 service: Yes Current occupational status: employed 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 Sexual orientation: Straight/Heterosexual Gender identity: Female Female Reproductive History Menstrual Age of Menarche: 13 Date of last menstrual period: 07/25/20 Total pregnancies: 2 Full term: 2 Review of Systems Card Reports as per HPI and Reports no additional complaints Resp Reports as per HPI and Reports no additional complaints GI Reports as per HPI and Reports no additional complaints Reports as per HPI Physical Exam Vital Signs: BMI result Body Mass Index 28.9 Const General: cooperative, healthy appearing and comfortable Resp Effort & Inspection: normal respiratory effort Auscultation: clear to auscultation bilaterally Percussion: percussion normal Cardio Palpation: normal PMI Rate: regular rate Rhythm: regular rhythm Heart sounds: no murmurs and no rubs Peripheral pulses: Peripheral pulses 2+ throughout GI Inspection: Yes normal to inspection Palpation (GI): Soft to palpation, nontender, no guarding, not rigid and No hepatosplenomegaly present Percussion: Yes normal to percussion Auscultation: normal bowel sounds Rectal Exam - Female: deferred Assessment & Plan Assessment & Plan (1) Endometrial polyp: Code(s): N84.0 - Polyp of corpus uteri Category: Medical Plan: Discussed with the patient the results of the EMB showing fragments of endometrial /endocervical polyp.? Recommended hysteroscopy D&C possible polypectomy/myomectomy Discussed with the patient the procedure , all benefits and risks including but not limited to inability to complete the procedure , insufficient endometrial tissue for a complete evaluation of the endometrial cavity , bleeding, infection, possible need for blood transfusion with all its risk ( HIV,syphilis, Hepatitis, anaphylaxis shock, others..), injury to bladder, rectum, possible need for laparoscopy/laparotomy or hysterectomy. The patient verbalized understanding and signed the consent. Instructions given the patient to stay NPO after midnight the day prior to the procedure and to take only the specific medication (s) discussed the morning of the surgical procedure and to schedule a 2 week postoperative appointment Coding Level of Care Code Est Pt Level 3 (80743) Diagnoses Endometrial polyp N84.0
[2025-06-01 11:31] VITALS: BMI 28.9
--- OUTSIDE RECORDS SUMMARY | 2025-06-01 12:23 | XMS_ITS | Encounter Summary ---
Author Organization [facility] Address [address] [address] Phone Care Team Providers Care Automobile Damage Field Appraiser Name Role Phone Gustabo Lee DO Unavailable Ilene Maya FIELD HOCKEY COACH Unavailable Annie Chang CNM Unavailable [phone] Epi Kenyon MD Unavailable [email or web address] Yumiko Ferro FIELD HOCKEY COACH Unavailable Berna Reynolds MD Unavailable [phone] Hafsa Lopez FIELD HOCKEY COACH Unavailable Gustabo Lee DO Primary Care Provider [phone] Encounter Details Date Type Department Care Team (Latest Contact Info) Description 08/21/2017 Transcribe Orders [facility] Laboratory [address] [place] [address] Epi Kenyon MD [email or web address] Hypovitaminosis D (Primary Dx) Social History Tobacco Use Types Packs/Day Years Used Date Smoking Tobacco: Never Assessed Comments Unknown Sex and Gender Information Value Date Recorded Sex Assigned at Female 05/26/2019 2:10 PM EDT Legal Sex Female 9:27 PM EDT Gender Identity Female 05/26/2019 2:10 PM EDT Sexual Orientation Straight 05/26/2019 2: 10 PM EDT documented as of this encounter Plan of Treatment Not on file documented as of this encounter Procedures Procedure Name Priority Date/Time Associated Diagnosis Comments 25-OH VITAMIN D Routine 08/21/2017 10:31 AM EST Hypovitaminosis D PARATHYROID HORMONE (PTH) Routine 08/21/2017 10:31 AM EST Hypovitaminosis D documented in this encounter Results * (ABNORMAL) 25-OH vitamin D (08/21/2017 10:31 AM EST) 25 OH VIT D (TOTAL) 19(L) 30 - 1,000 ng/mL [facility] Blood 08/21/2017 10:3 1 AM EST 08/21/2017 10:35 AM EST us Epi Kenyon MD LAB BLOOD ORDERABLES Final Result Performing Organization Address City/[facility] Co de Phone Number [address] [address] * Parathyroid hormone (PTH) (08/21/2017 10:31 AM EST) PARATHYROID HORMONE 37 15 - 65 pg/mL [facility] Blood 08/21/2017 10:3 1 AM EST 08/21/2017 10:34 AM EST us Epi Kenyon MD LAB BLOOD ORDERABLES Final Result Performing Organization Address City/[facility] Co de Phone Number [address] [address] documented in this encounter Visit Diagnoses Diagnosis Hypovitaminosis D- Primary Unspecified vitamin D deficiency documented in this encounter Care Teams Automobile Damage Field Appraiser Relationship Specialty Start Date End Date Gustabo Lee DO [address] [place] [address] PCP - General Internal Medicine 08/21/17 Gustabo Lee DO [address] [facility] [place] [address] [email or web address] Historical LMR Provider 07/12/17 10/04/21 Ilene Maya NP [address] [address] Historical LMR Provider 07/12/17 2 Annie Chang CNM [address] [place] [address] Historical LMR Provider 07/12/17 2 Epi Kenyon MD [email or web address] Historical LMR Provider 07/12/17 Yumiko Ferro NP [address] [place] [address] [email or web address] Historical LMR Provider 07/12/17 2 Berna Reynolds MD 22 [facility] [address] [place] [address] [email or web address] Historical LMR Provider 07/12/17 10/04/21 Hafsa Lopez NP [address] [place] [id number] Historical LMR Provider 07/12/17 2 documented as of this encounter Additional Source Comments The information contained in this document represents components of the legal health record. It is not the complete legal health record.[facility]
--- OUTSIDE RECORDS SUMMARY | 2025-06-01 12:23 | XMS_ITS | Clinical Summary ---
Author Organization [facility] Address [address] [address] Phone Care Team Providers Care Concierge Manager Name Role Phone Epi [email or web address] [email or web address] Gustabo Lee DO Primary Care Provider [phone] Allergies Active Allergy Reactions Criticality Noted Date Comments Amoxicillin-Pot Clavulanate Rash Low 11/24/19 22 [place] And Derivatives 02/22/2018 Latex Hives 05/27/2021 Sulfa [...] Final Ketone 11/15/2019 Negative Negative Final Specific [place] 11/15/2019 >=1.030* 1.001 - 1.030 Final Blood [...] this 29 minute visit was spent in [id number] conversation with the patient going over strategies [...] 50% of this 28-minute visit was spent [id number] conversation with the patient going over her [...] VIRTUAL COLONOSCOPY 2021 BLOOD PRESSURE 10/20/2023 04/19/2023 INFLUENZA VACCINE (#1) 2025 COVID-19 VACCINE (2024-2 6 season) 2025 10/10/2021, 01/12/2021, 12/21/2020 Adult Td,Tdap Booster 06/30/2026 [...] EST) SODIUM 136 133 - 146 mmol/L [facility] CHLORIDE 98 96 - 108 mmol/L [facility] POTASSIUM 4.2 3.3 - 5.1 mmol/L [facility] CO2 26 21 - 35 mmol/L [facility] BUN 13 6 - 19 mg/dL [facility] CREATININE 0.70 0.5 - 1.5 mg/dL [facility] GLUCOSE 109(H) 70 - 99 mg/dL [facility] CALCIUM 9.6 8.4 - 10.3 mg/dL [facility] EGFR 106 >59 mL/min/1.7 3m2 [facility] Comment:If patient is black, multiply result by 1.159. Estimated glomerular filtration rate calculated using the CKD-EPI equation. ANION GAP 16 10 - 20 mmol/L [facility] Blood 11/15/2019 2:53 PM EST 11/15/2019 5:13 PM EST Parish Mc NP LAB BLOOD ORDERABLES Final Resu lt [address] [address] from Last 3 Months or Most Recently Relevant to Health Maintenance Insurance [address] [place], [place] [address] [place] [place] [address] [place] [place] [address] [place] [address] [place], [place] [address] [facility] [employer] Care Teams Concierge Manager Relationship Specialty Start Date End Date Gustabo Lee DO [email or web address] PCP - General Internal Medicine 08/21/17 Epi Kenyon MD [email or web address] Historical LMR Provider 07/12/17 Additional Source Comments The information contained in this document represents components of the legal health record. It is not the complete legal health record.[facility]
--- OUTSIDE RECORDS SUMMARY | 2025-06-01 12:23 | XMS_ITS | Encounter Summary ---
Author Organization [facility] Address [address] [address] Phone Care Team Providers Care Ammunition Components Inspector Name Role Phone Epi Kenyon MD Unavailable [email or web address] Gustabo Lee DO Primary Care Provider [phone] Encounter Details Date Type Department Care Team (Latest Contact Info) Description 11/26/2021 Transcribe Orders Virtual Department [address] [place] [address] Molly Ayala PA [address] [place] [address] [place] [address] Chronic knee pain after total replacement of right knee joint (Primary Dx); Pain in joint of right knee Social History Tobacco Use Types Packs/Day Years Used Date Smoking Tobacco: Never Smokeless Tobacco: Never Alcohol Use Standard Drinks/Week Comments Not Currently 0 (1 standard drink = 0.6 oz pur e alcohol) Comments Unknown Sex and Gender Information Value Date Recorded Sex Assigned at Female 05/26/2019 2:10 PM EDT Legal Sex Female 9:27 PM EDT Gender Identity Female 05/26/2019 2:10 PM EDT Sexual Orientation Straight 05/26/2019 2: 10 PM EDT documented as of this encounter Plan of Treatment Not on file documented as of this encounter Visit Diagnoses Diagnosis Chronic knee pain after total replacement of right knee joint- Primary Pain in joint of right knee documented in this encounter Care Teams Ammunition Components Inspector Relationship Specialty Start Date End Date Gustabo Lee DO [email or web address] PCP - General Internal Medicine 08/21/17 Epi Kenyon MD [email or web address] Historical LMR Provider 07/12/17 documented as of this encounter Additional Source Comments The information contained in this document represents components of the legal health record. It is not the complete legal health record.[facility]
== END 2025-06-01 12:10 | disposition home or self-care (01) ==
LOC: HO.HWS 11:24
PROVIDERS: PCP Internal Medicine; Visit Provider Obstetrics & Gynecology
DX: N84.0 Polyp of corpus uteri (principal)
CPT/HCPCS: 99213

== ENCOUNTER 2025-06-15 10:55 | Day surgery (SDC) | payer OTHER, SELFPAY ==
[2025-06-13 07:01] VITALS: BMI 28.9
--- NOTE | 2025-06-13 11:34 | HO.ANESPROP2 ---
Documented by User: Mimi Edouard NP 06/13/25 11:34 HPI - Anesthesia Eval Consult details Narrative: 50 yr old female for D&C Hysteroscopy,possible myomectomy,possible polypectomy PMFSH Active Problems Active Problems: All Active Problems Endometrial polyp (Acute) Abnormal cervix finding (Acute) Abnormal uterine bleeding (AUB) (Acute) Elevated parathyroid hormone (Acute) Lesion of cervix (Acute) Encounter for well woman exam with routine gynecological exam (Acute) Overweight (Acute) Obesity (Acute) Congenital intra-abdominal adhesions (Acute) S/P laparoscopic sleeve gastrectomy (Acute) Steatosis, liver (Acute) Major depressive disorder, recurrent, mild (Acute) Overactive bladder (Acute) HTN (hypertension), benign (Acute) Hyperlipidemia (Acute) Major depression (Acute) YENNIFER on CPAP (Acute) Morbid obesity (Acute) Cough (Acute) Asthma (Acute) Stress incontinence (Acute) GERD (gastroesophageal reflux disease) (Acute) Rheumatoid arthritis (Acute) Abnormal ECG (Acute) Past Medical History Medical History Elevated parathyroid hormone Lesion of cervix Hiatal hernia Elevated cholesterol YENNIFER on CPAP HTN (hypertension) Stress incontinence GERD (gastroesophageal reflux disease) Rheumatoid arthritis Abnormal ECG Migraines, neuralgic Anxiety Depression Asthma Family History Family History Father Diabetes HTN (hypertension) Hyperlipidemia Mother HTN (hypertension) Osteoporosis Uterine cancer, Onset Age: 66 Maternal Grandmother Colon cancer Family history of problems with anesthesia: No Surgical History Surgical History Hx of laparoscopic partial gastrectomy History of esophagogastroduodenoscopy (EGD) [place] teeth removed H/O knee surgery History of Problems with Anesthesia: No Social History Social History Household Members: Spouse Household Members Other:: partner Housing: House Are you a primary healthcare translator to a significant other at home: No Do you presently have visiting nurse or other home services: No Alcohol intake: current Alcohol intake frequency: does not drink Comment: 1x weekly Patient Tobacco Use Status: Former Tobacco user Tobacco use type: Cigarette Years Smoked: 5 Have you been hit, kicked, punched, or otherwise hurt by someone within the past year? 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 Sexual orientation: Straight/Heterosexual Gender identity: Female Meds Allergies Allergy/AdvReac Type Severity Reaction Status Date / Time environmental allergies Allergy Intermediate Itchy Eyes Verified 05/15/25 14:17 latex Allergy Intermediate Rash Verified 05/15/25 14:17 amoxicillin (From Augmentin) AdvReac Intermediate Rash Verified 05/15/25 14:17 clavulanic acid (From AdvReac Intermediate Rash Verified 05/15/25 14:17 Augmentin) Isopropanol buto bicarbonate Allergy Intermediate Rash Uncoded 05/08/25 13:01 Home Medications ?Medication ?Instructions ?Recorded ?Confirmed ?Last Taken ?Type atorvastatin 40 mg tablet 40 mg PO BEDTIME 08/02/21 05/08/25 03/06/24 History betamethasone dipropionate 0.05 % 1 appl topical BID 08/02/21 05/08/25 Unknown History lotion duloxetine 60 mg capsule,delayed 60 mg PO BEDTIME 08/02/21 05/08/25 03/06/24 History release montelukast 10 mg tablet 10 mg PO BEDTIME 08/02/21 05/08/25 03/06/24 History albuterol sulfate 90 mcg/actuation 2 puff inhalation Q6H PRN 12/20/23 05/08/25 Unknown History aerosol inhaler Shortness Of Breath Or Wheezing multivitamin with minerals-folic 1 tab PO DAILY 03/07/24 05/08/25 Unknown History acid 200 mcg chewable tablet (Multivitamin Gummies) doxycycline hyclate 20 mg tablet 20 mg PO BID 05/09/24 05/08/25 Unknown History fluticasone propionate 50 1 spray intranasal DAILY 03/20/25 05/08/25 Unknown History mcg/actuation nasal spray,suspension loratadine 10 mg tablet (Claritin) 10 mg PO DAILY 03/20/25 05/08/25 Unknown History Exam Height,Weight and Vital Signs: Height 5 ft 1 in Weight 69.4 kg Assessment and Plan Final Anesthetic Review Family History of Problems with Anesthesia: No History of Problems with Anesthesia: No Documented by User: Stephanie Harmon MD 06/15/25 12:20 PMFSH Past Medical History Medical History Elevated parathyroid hormone Lesion of cervix Hiatal hernia Elevated cholesterol YENNIFER on CPAP HTN (hypertension) Stress incontinence GERD (gastroesophageal reflux disease) Rheumatoid arthritis Abnormal ECG Migraines, neuralgic Anxiety Depression Asthma Family History Family History Father Diabetes HTN (hypertension) Hyperlipidemia Mother HTN (hypertension) Osteoporosis Uterine cancer, Onset Age: 66 Maternal Grandmother Colon cancer Surgical History Surgical History Hx of laparoscopic partial gastrectomy History of esophagogastroduodenoscopy (EGD) [place] teeth removed H/O knee surgery Social History Social History Household Members: Spouse Household Members Other:: partner Housing: House Are you a primary healthcare translator to a significant other at home: No Do you presently have visiting nurse or other home services: No Alcohol intake: current Alcohol intake frequency: does not drink Comment: 1x weekly Patient Tobacco Use Status: Former Tobacco user Tobacco use type: Cigarette Years Smoked: 5 Have you been hit, kicked, punched, or otherwise hurt by someone within the past year? 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 Sexual orientation: Straight/Heterosexual Gender identity: Female Meds Allergies Allergy/AdvReac Type Severity Reaction Status Date / Time environmental allergies Allergy Intermediate Itchy Eyes Verified 05/15/25 14:17 latex Allergy Intermediate Rash Verified 05/15/25 14:17 amoxicillin (From Augmentin) AdvReac Intermediate Rash Verified 05/15/25 14:17 clavulanic acid (From AdvReac Intermediate Rash Verified 05/15/25 14:17 Augmentin) Isopropanol buto bicarbonate Allergy Intermediate Rash Uncoded 05/08/25 13:01 Home Medications ?Medication ?Instructions ?Recorded ?Confirmed ?Last Taken ?Type atorvastatin 40 mg tablet 40 mg PO BEDTIME 08/02/21 05/08/25 03/06/24 History betamethasone dipropionate 0.05 % 1 appl topical BID 08/02/21 05/08/25 Unknown History lotion duloxetine 60 mg capsule,delayed 60 mg PO BEDTIME 08/02/21 05/08/25 03/06/24 History release montelukast 10 mg tablet 10 mg PO BEDTIME 08/02/21 05/08/25 03/06/24 History albuterol sulfate 90 mcg/actuation 2 puff inhalation Q6H PRN 12/20/23 05/08/25 Unknown History aerosol inhaler Shortness Of Breath Or Wheezing multivitamin with minerals-folic 1 tab PO DAILY 03/07/24 05/08/25 Unknown History acid 200 mcg chewable tablet (Multivitamin Gummies) doxycycline hyclate 20 mg tablet 20 mg PO BID 05/09/24 05/08/25 Unknown History fluticasone propionate 50 1 spray intranasal DAILY 03/20/25 05/08/25 Unknown History mcg/actuation nasal spray,suspension loratadine 10 mg tablet (Claritin) 10 mg PO DAILY 03/20/25 05/08/25 Unknown History Exam Airway Mallampati Class: II TM Dist: >3cm Neck ROM: Full Heart: rrr Lungs: cta Assessment and Plan Assessment Anesthesia Assessment: Anesthesia Plan Discussed and Chart Reviewed Final Anesthetic Review NPO: Yes ASA Class: II Final Preanesthetic Review: No Changes in Pt Med Stat, Meds/Allgs Chart Reviewed and Consent Obtained/Reviewed Patient Risk: Low Procedure Risk: Low Anesthetic Plan Anesthetic Plan: GA Disposition: Standard PACU
[2025-06-15 10:59] VITALS: BMI 28.2
[2025-06-15 11:15] LABS: UPreg QC Valid YES
[2025-06-15] MEDS: Lactated Ringers 1,000 ML 100 ML IVCONT (11:16)
[2025-06-15 11:17] VITALS: BP 164/90; PULSE 74; RESP 18; TEMP 36.7; O2SAT 98
--- NOTE | 2025-06-15 12:18 | MHC.SHP ---
Pre-Procedural Eval Section A - 24 Hr Update-Section A only Date of Service: 06/15/25 The patient is an INPATIENT: No Changes since office visit: No Cold of Flu in the past 2 weeks, No New Medical Problems, No Changes in Medication and No Patient answered all questions The patient has been examined within 24 hours of the surgical procedure. The History & Physical has been completed within 30 days and I have reviewed it.: Yes Section B - Complete if H&P > 30 days Chief Complaint: Polyp of corpus uteri Allergies: Allergies Allergy/AdvReac Type Severity Reaction Status Date / Time environmental allergies Allergy Intermediate Itchy Eyes Verified 05/15/25 14:17 latex Allergy Intermediate Rash Verified 05/15/25 14:17 amoxicillin (From Augmentin) AdvReac Intermediate Rash Verified 05/15/25 14:17 clavulanic acid (From AdvReac Intermediate Rash Verified 05/15/25 14:17 Augmentin) Isopropanol buto bicarbonate Allergy Intermediate Rash Uncoded 05/08/25 13:01 Plan Diagnosis/Plan: Unchanged I have reviewed the history and physical and performed a pertinent physical examination on my patient. No changes have occurred unless specified. Time Spent With Patient Time: Total time managing care of this patient today ____ minutes.
--- NOTE | 2025-06-15 12:52 | PM.OP ---
Brief Operative Note Date of Service: 06/15/25 Pre-op diagnosis: AUB, endometrial polyp by EMB pathology Post-op diagnosis: same (Endometrial polyp) Procedure: Hysteroscopy D&C, Polypectomy Surgeon: Daniel Chaney MD Anesthesia: GLMA Was an Vocational Training Director used for this Procedure?: No Estimated blood loss (mL): 0 Pathology: other (Endometrial Scrapping. Polyp) Condition: stable Disposition: PACU
[2025-06-15 12:57] VITALS: BP 166/89; PULSE 76; RESP 12; TEMP 36.1; O2SAT 97
--- NOTE | 2025-06-15 13:01 | W.PM.OPN ---
Operative Note Operative Note Date of Service: 06/15/25 Narrative: Preop Diagnosis: AUB Endometrial polyp by EMB pathology Operation: Diagnostic Hysteroscopy, Dilataion & Curettage and polypectomy Post Op Diagnosis: Endometrial Polyp QBL: Minimal Anesthesia: GLMA Surgeon: Daniel Chaney MD Learning Program Manager: None Complication: None Pathology: Endometrial Scrapings, Endometrial polyp Procedure: The patient was put in the dorsal lithotomy position, scrubbed, and draped in the usual manner. A sterile speculum was inserted in the patient's vagina. The anterior lip of the cervix was grasped with a single tooth tenaculum. The cervix was dilated up to 5 mm, then the scope was inserted in the patient's uterus. Inspection revealed endometrial polyp. The Myosure Reach device was used; it was introduced through the operative channel and polypectomy done with no complications. The scope was then taken out from the uterine cavity, sharp curettings was carried on with minimal to moderate amount of tissues retrieved. At the end of the procedure, all instruments were taken out of the patient uterine and vaginal cavity. The single tooth tenaculum was removed and homeostasis was assured using pressure,. The patient tolerated the procedure well and was transferred to the PACU in a stable condition.
[2025-06-15 13:02] VITALS: BP 155/79; PULSE 74; RESP 14; O2SAT 100
[2025-06-15 13:07] VITALS: BP 157/85; PULSE 72; RESP 15; O2SAT 100
[2025-06-15 13:12] VITALS: BP 153/78; PULSE 73; RESP 13; O2SAT 100
[2025-06-15 13:27] VITALS: BP 149/82; PULSE 73; RESP 15; TEMP 36.1; O2SAT 100
== END 2025-06-15 13:41 | disposition home or self-care (01) ==
PROVIDERS: PCP Internal Medicine; Visit Provider Obstetrics & Gynecology
PROC: 0UDB8ZZ Extraction of Endometrium, Via Natural or Artificial Opening Endoscopic (ICD-10-PCS; CPT 58558; principal; 2025-06-15 13:20)
DX: N84.0 Polyp of corpus uteri (principal); N39.3 Stress incontinence (female) (male); I10 Essential (primary) hypertension; J45.909 Unspecified asthma, uncomplicated; K21.9 Gastro-esophageal reflux disease without esophagitis; Z90.3 Acquired absence of stomach [part of]; E21.0 Primary hyperparathyroidism; K44.9 Diaphragmatic hernia without obstruction or gangrene; G43.809 Other migraine, not intractable, without status migrainosus; G47.33 Obstructive sleep apnea (adult) (pediatric); M06.9 Rheumatoid arthritis, unspecified; F32.A Depression, unspecified; F41.9 Anxiety disorder, unspecified; Z79.51 Long term (current) use of inhaled steroids; Z79.899 Other long term (current) drug therapy; Z99.89 Dependence on other enabling machines and devices; Z88.1 Allergy status to other antibiotic agents; Z88.8 Allergy status to other drugs, medicaments and biological substances; Z91.040 Latex allergy status; Z98.890 Other specified postprocedural states; Z87.891 Personal history of nicotine dependence
CPT/HCPCS: 58558; 81025; 88305

== ENCOUNTER → 2025-06-15 10:55 | Outpatient (BNV) | payer OTHER, SELFPAY | PROVIDERS: PCP Internal Medicine; Visit Provider Obstetrics & Gynecology | DX: N84.0 Polyp of corpus uteri (principal) | CPT/HCPCS: 58558 ==

== ENCOUNTER → 2025-06-17 13:01 | Outpatient (BNV) | payer OTHER, SELFPAY | PROVIDERS: PCP Internal Medicine; Visit Provider Radiology Diagnostic Radiology | DX: N83.202 Unspecified ovarian cyst, left side (principal); N88.8 Other specified noninflammatory disorders of cervix uteri; D25.2 Subserosal leiomyoma of uterus | CPT/HCPCS: 72197 ==

== ENCOUNTER 2025-06-17 13:02 | Outpatient (REF) | payer OTHER, SELFPAY ==
--- NOTE | ~2025-06-17 | MR_ITS ---
EXAMINATION: MR PELVIS WITHOUT THEN WITH IV CONTRAST HISTORY: N88.9 - Noninflammatory disorder of cervix uteri, unspecified. TECHNIQUE: Axial T1, fat-suppressed T1, and fat suppressed T2, and sagittal and coronal T2-weighted MR images of the pelvis were obtained. Subsequently, sagittal and axial fat-suppressed T1-weighted images were obtained after the intravenous administration of 6.5 mL Gadavist. COMPARISON: Correlation is made with a pelvic ultrasound dated 04/24/2025. FINDINGS: This study is somewhat limited by patient motion. The uterus measures approximately 7.9 x 4.0 x 4.6 cm. There is a probable 1.6 cm subserosal fibroid at the fundus. The junctional zone is not thickened. The endometrium is unremarkable. There appears to be a 4 mm cyst in the upper cervix, likely representing a nabothian cyst. No additional cervical abnormality is seen. The cervical stroma appears preserved. The right ovary measures 1.9 x 0.9 x 1.8 cm and is unremarkable. The left ovary measures 2.9 x 2.3 x 2.9 cm and demonstrates a 2.5 x 1.6 x 2.5 cm cyst. There are no associated septations or solid components. There is trace free fluid in the cul-de-sac. No pelvic lymphadenopathy is identified. The visualized bones demonstrate normal marrow signal intensity. MR/MR pelvis wo/w con IMPRESSION: 1. 4 mm cyst in the upper cervix which likely represents a nabothian cyst cyst. It is uncertain whether this represents the abnormality noted on ultrasound. No additional cervical abnormality is identified. Ultrasound follow-up is suggested. 2. 1.6 cm subserosal fibroid at the fundus. 3. 2.5 x 1.6 x 2.5 cm left ovarian cyst. Electronically signed by: Vargas Mcintyre MD 06/18/2025 08:37 AM EDT
--- OUTSIDE RECORDS SUMMARY | 2025-06-17 13:05 | XMS_ITS | Clinical Summary ---
Author Organization [facility] Address [address] [address] Phone Care Team Providers Care Jockey Room Custodian Name Role Phone Epi Kenyon [email or web address] medical center [place] Gustabo Lee DO Primary Care Provider [phone] Allergies Active Allergy Reactions Criticality Noted Date Comments Amoxicillin-Pot Clavulanate Rash Low 11/24/19 22 [place] And Derivatives 02/22/2018 Latex Hives 05/27/2021 Sulfa [...] Final Ketone 11/15/2019 Negative Negative Final Specific [place] 11/15/2019 >=1.030* 1.001 - 1.030 Final Blood [...] this 29 minute visit was spent in wqpt-be-[id number] conversation with the patient going over strategies [...] 50% of this 28-minute visit was spent msoi-gd-blmr conversation with the patient going over her [...] EST) SODIUM 136 133 - 146 mmol/L [facility] CHLORIDE 98 96 - 108 mmol/L [facility] POTASSIUM 4.2 3.3 - 5.1 mmol/L [facility] CO2 26 21 - 35 mmol/L [facility] BUN 13 6 - 19 mg/dL [facility] CREATININE 0.70 0.5 - 1.5 mg/dL [facility] GLUCOSE 109(H) 70 - 99 mg/dL [facility] CALCIUM 9.6 8.4 - 10.3 mg/dL [facility] EGFR 106 >59 mL/min/1.7 3m2 [facility] Comment:If patient is black, multiply result by 1.159. Estimated glomerular filtration rate calculated using the CKD-EPI equation. ANION GAP 16 10 - 20 mmol/L [facility] Blood 11/15/2019 2:53 PM EST 11/15/2019 5:13 PM EST Parish Mc NP LAB BLOOD ORDERABLES Final Resu lt [address] [address] from Last 3 Months or Most Recently Relevant to Health Maintenance Insurance [address] [place], [place] [address] [place] [address] [place] [address] [place] [address] [place] [address] [facility] INSURANCE Care Teams Jockey Room Custodian Relationship Specialty Start Date End Date Gustabo Lee DO [email or web address] PCP - General Internal Medicine 08/21/17 Epi Kenyon MD [email or web address] Historical LMR Provider 07/12/17 Additional Source Comments The information contained in this document represents components of the legal health record. It is not the complete legal health record.[facility]
--- OUTSIDE RECORDS SUMMARY | 2025-06-17 13:06 | XMS_ITS | Encounter Summary ---
Author Organization [facility] Address [address] [address] Phone Care Team Providers Care Executive Director Global Brand Marketing Name Role Phone Gustabo Lee DO Unavailable Ilene Maya POWER REACTOR SUPERVISOR Unavailable Annie Chang CNM Unavailable [phone] Epi Kenyon MD Unavailable [email or web address] Yumiko Ferro POWER REACTOR SUPERVISOR Unavailable Berna Reynolds MD Unavailable [phone] Hafsa Lopez POWER REACTOR SUPERVISOR Unavailable Gustabo Lee DO Primary Care Provider [phone] Encounter Details Date Type Department Care Team (Latest Contact Info) Description 08/21/2017 Transcribe Orders [facility] Laboratory [address] [place] [address] Epi Kenyon MD [email or web address] Hypovitaminosis D (Primary Dx) Social [...] D (TOTAL) 19(L) 30 - 1,000 ng/mL [facility] Blood 08/21/2017 10:3 1 AM EST 08/21/2017 10:35 AM EST us Epi Kenyon MD LAB BLOOD ORDERABLES Final Result Performing Organization Address City/[facility] Co de Phone Number [address] [address] * Parathyroid hormone (PTH) (08/21/2017 10:31 AM EST) PARATHYROID HORMONE 37 15 - 65 pg/mL [facility] Blood 08/21/2017 10:3 1 AM EST 08/21/2017 10:34 AM EST us Epi Kenyon MD LAB BLOOD ORDERABLES Final Result Performing Organization Address City/[facility] Co de Phone Number [address] [address] documented in this encounter Visit Diagnoses Diagnosis Hypovitaminosis D- Primary Unspecified vitamin D deficiency documented in this encounter Care Teams Executive Director Global Brand Marketing Relationship Specialty Start Date End Date Gustabo Lee DO [address] [place] [address] PCP - General Internal Medicine 08/21/17 Gustabo Lee DO [address] [facility] [place] [address] [email or web address] Historical LMR Provider 07/12/17 10/04/21 Ilene Maya NP [address] [address] Historical LMR Provider 07/12/17 2 Annie Chang CNM [address] [place] [address] Historical LMR Provider 07/12/17 2 Epi Kenyon MD [email or web address] Historical LMR Provider 07/12/17 Yumiko Ferro NP [address] [place] [address] [email or web address] Historical LMR Provider 07/12/17 2 Berna Reynolds MD 22 [facility] [address] [place] [address] [email or web address] Historical LMR Provider 07/12/17 10/04/21 Hafsa Lopez NP [address] [place] [address] Historical LMR Provider 07/12/17 2 documented as of this encounter Additional Source Comments The information contained in this document represents components of the legal health record. It is not the complete legal health record.[facility]
--- OUTSIDE RECORDS SUMMARY | 2025-06-17 13:06 | XMS_ITS | Encounter Summary ---
Author Organization [facility] Address [address] [address] Phone Care Team Providers Care Supervisor Open Hearth Stockyard Name Role Phone pEi Kenyon MD Unavailable [email or web address] Gustabo Lee DO Primary Care Provider [phone] Encounter Details Date Type Department Care Team (Latest Contact Info) Description 11/26/2021 Transcribe Orders Virtual Department [address] [place] [address] Molly Ayala PA [address] [place] [address] [place] [address] Chronic knee pain after total replacement of [...] knee documented in this encounter Care Teams Supervisor Open Hearth Stockyard Relationship Specialty Start Date End Date Gustabo Lee DO [email or web address] PCP - General Internal Medicine 08/21/17 Epi Kenyon MD [email or web address] Historical LMR Provider 07/12/17 documented as of this encounter Additional Source Comments The information contained in this document represents components of the legal health record. It is not the complete legal health record.[facility]
== END 2025-06-17 13:03 | disposition home or self-care (01) ==
LOC: HO.MRI 13:02
PROVIDERS: PCP Internal Medicine; Visit Provider Obstetrics & Gynecology
DX: N88.9 Noninflammatory disorder of cervix uteri, unspecified (principal)
CPT/HCPCS: 72197; A9585

== ENCOUNTER 2025-06-27 13:05 | Outpatient (AMB) | payer OTHER, SELFPAY ==
--- NOTE | 2025-06-27 13:06 | A.OFFVIS_ITS ---
Intake Visit Reasons: post op Allergies environmental allergies Allergy (Intermediate, Verified 05/15/25 14:17) Itchy Eyes latex Allergy (Intermediate, Verified 05/15/25 14:17) Rash amoxicillin (From Augmentin) Adverse Reaction (Intermediate, Verified 05/15/25 14:17) Rash clavulanic acid (From Augmentin) Adverse Reaction (Intermediate, Verified 05/15/25 14:17) Rash Isopropanol buto bicarbonate Allergy (Intermediate, Uncoded 05/08/25 13:01) Rash HPI Comments Details: The patient is presenting post hysteroscopy D&C no complaints minimal vaginal bleeding no feverishness chills or abdominal pain. The pathology showed the following: A. Endometrium, polypectomy: Fragments with features of endometrial polyp; prominent fragments of benign smooth muscle; background disordered proliferative endometrium; no atypia identified. B. Endometrium, curettage: Mildly disordered proliferative endometrium; no atypia or hyperplasia identified. Comment: The prominent smooth muscle in part A may represent a leiomyoma. The following workup has been done so far; H&H =12.5/37.2 TSH within normal GC/CT negative Co testing 08/18 was negative Last mammogram in 11/21 was BI-RADS 1 04/24/2025 pelvic ultrasound showed the following: Uterus is midline positioned, normal in size, 6.5 x 3.5 x 4.4 cm. Mildly heterogeneous myometrium, no uterine fibroid is seen. The endometrium is unremarkable, 8 mm in thickness, homogeneously hyperechoic, no focal lesion. Mildly heterogeneous hypoechoic lesion 7 x 3 mm in the anterior cervix, color Doppler demonstrates intralesional vascular flow. Normal right ovary, 2.2 x 2.0 x 1.7 cm. No suspicious ovarian lesion or abnormal vascular flow. Normal left ovary, 2.5 x 1.4 x 1.6 cm. No suspicious lesion or abnormal vascular flow. No free fluid in the pelvis. Impression: Indeterminate subcentimeter cervical lesion, intralesional vascular flow excludes nabothian cyst, neoplasm needs to be neoplasm needs to be excluded, recommend power engineer follow-up. Otherwise unremarkable. [facility] Medical History Elevated parathyroid hormone Lesion of cervix Hiatal hernia Elevated cholesterol YENNIFER on CPAP HTN (hypertension) Stress incontinence GERD (gastroesophageal reflux disease) Rheumatoid arthritis Abnormal ECG Migraines, neuralgic Anxiety Depression Asthma Surgical History Hx of laparoscopic partial gastrectomy History of esophagogastroduodenoscopy (EGD) Walnut teeth removed H/O knee surgery Family History Father Diabetes HTN (hypertension) Hyperlipidemia Mother HTN (hypertension) Osteoporosis Uterine cancer, Onset Age: 66 Maternal Grandmother Colon cancer Social History Household Members: Spouse Household Members Other:: partner Housing: House Are you a primary plant care worker to a significant other at home: No Do you presently have visiting nurse or other home services: No Alcohol intake: current Alcohol intake frequency: does not drink Comment: 1x weekly Patient Tobacco Use Status: Former Tobacco user Tobacco use type: Cigarette Years Smoked: 5 service: Yes Current occupational status: employed 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 Sexual orientation: Straight/Heterosexual Gender identity: Female Female Reproductive History Menstrual Age of Menarche: 13 Telehealth Telehealth Telehealth Platform: [employer] Location of provider rendering services: practice address Location of patient: address on file Patient Identification confirmed using: Name, : Yes Telehealth method: video Patient verbally consented to treatment: Yes Patient verbally consented to billing insurance company: Yes Patient informed of any privacy concerns related to visit: Yes Minutes spent on Phone/Video with Pt.: 4 Assessment & Plan Assessment & Plan (1) Abnormal uterine bleeding (AUB): Code(s): N93.9 - Abnormal uterine and vaginal bleeding, unspecified Category: Medical Plan: Discussed with the patient the results of the work up done and options of treatment including Lysteda, BCP's, Mirena IUD, endometrial ablation and hysterectomy. All pros, cons, risks and benefits if each option was discussed with the patient and the patient decided to think about it and get back to us. All questions answered the patient verbalized understanding. I spent a total of 20 minutes reviewing the chart, talking to the patient via video and documenting in the medical record. Coding Level of Care Code Tele Est Pt Level 3 (79663) Diagnoses Abnormal uterine bleeding (AUB) N93.9
--- OUTSIDE RECORDS SUMMARY | 2025-06-27 14:23 | XMS_ITS | Clinical Summary ---
Author Organization [facility] Address [address] [address] Phone Care Team Providers Care Supervisor Plastics Name Role Phone Epi [email or web address] [email or web address] Gustabo Lee DO Primary Care Provider [phone] Allergies Active Allergy Reactions Criticality Noted Date Comments Amoxicillin-Pot Clavulanate Rash Low 11/24/19 22 [place] And Derivatives 02/22/2018 Latex Hives 05/27/2021 Sulfa [...] Final Ketone 11/15/2019 Negative Negative Final Specific [place] 11/15/2019 >=1.030* 1.001 - 1.030 Final Blood [...] this 29 minute visit was spent in tzrj-ic-zqjg conversation with the patient going over strategies [...] 50% of this 28-minute visit was spent tyeh-gi-lcmp conversation with the patient going over her [...] EST) SODIUM 136 133 - 146 mmol/L [facility] CHLORIDE 98 96 - 108 mmol/L [facility] POTASSIUM 4.2 3.3 - 5.1 mmol/L [facility] CO2 26 21 - 35 mmol/L [facility] BUN 13 6 - 19 mg/dL [facility] CREATININE 0.70 0.5 - 1.5 mg/dL [facility] GLUCOSE 109(H) 70 - 99 mg/dL [facility] CALCIUM 9.6 8.4 - 10.3 mg/dL [facility] EGFR 106 >59 mL/min/1.7 3m2 [facility] Comment:If patient is black, multiply result by 1.159. Estimated glomerular filtration rate calculated using the CKD-EPI equation. ANION GAP 16 10 - 20 mmol/L [facility] Blood 11/15/2019 2:53 PM EST 11/15/2019 5:13 PM EST Parish Mc NP LAB BLOOD ORDERABLES Final Resu lt [address] [address] from Last 3 Months or Most Recently Relevant to Health Maintenance Insurance [address] [place], [place] [address] [place] [address] [place] [address] [address] [place], [place] [address] [facility] INSURANCE Care Teams Supervisor Plastics Relationship Specialty Start Date End Date Gustabo Lee DO [email or web address] PCP - General Internal Medicine 08/21/17 Epi Kenyon MD [email or web address] Historical LMR Provider 07/12/17 Additional Source Comments The information contained in this document represents components of the legal health record. It is not the complete legal health record.[facility]
--- OUTSIDE RECORDS SUMMARY | 2025-06-27 14:23 | XMS_ITS | Encounter Summary ---
Author Organization [facility] Address [address] [address] Phone Care Team Providers Care Ambulatory Care Name Role Phone Epi Kenyon MD Unavailable [email or web address] Gustabo Lee DO Primary Care Provider Encounter Details Date Type Department Care Team (Latest Contact Info) Description 11/26/2021 Transcribe Orders Virtual Department [address] [place] [address] Molly Ayala PA [address] [place] [address] [place] [address] Chronic knee pain after total replacement of [...] knee documented in this encounter Care Teams Ambulatory Care Relationship Specialty Start Date End Date Gustabo Lee DO [email or web address] PCP - General Internal Medicine 08/21/17 Epi Kenyon MD [email or web address] Historical LMR Provider 07/12/17 documented as of this encounter Additional Source Comments The information contained in this document represents components of the legal health record. It is not the complete legal health record.[facility]
--- OUTSIDE RECORDS SUMMARY | 2025-06-27 14:23 | XMS_ITS | Encounter Summary ---
Author Organization [facility] Address [address] [address] Phone Care Team Providers Care Battery Tester And Repairer Name Role Phone Gustabo Lee DO Unavailable Ilene Maya VIDEO POKER FLOORMAN Unavailable Annie Chang CNM Unavailable [phone] Epi Kenyon MD Unavailable [email or web address] Yumiko Ferro VIDEO POKER FLOORMAN Unavailable Berna Reynolds MD Unavailable [phone] Hafsa Lopez VIDEO POKER FLOORMAN Unavailable Gustabo Lee DO Primary Care Provider [phone] Encounter Details Date Type Department Care Team (Latest Contact Info) Description 08/21/2017 Transcribe Orders [facility] Laboratory [address] [place] [address] Epi Kenyon MD [email or web address] Hypovitaminosis D (Primary Dx) Social History [...] D (TOTAL) 19(L) 30 - 1,000 ng/mL [facility] Blood 08/21/2017 10:3 1 AM EST 08/21/2017 10:35 AM EST us Epi Kenyon MD LAB BLOOD ORDERABLES Final Result Performing Organization Address City/[facility] Co de Phone Number [address] [address] * Parathyroid hormone (PTH) (08/21/2017 10:31 AM EST) PARATHYROID HORMONE 37 15 - 65 pg/mL [facility] Blood 08/21/2017 10:3 1 AM EST 08/21/2017 10:34 AM EST us Epi Kenyon MD LAB BLOOD ORDERABLES Final Result Performing Organization Address City/[facility] Co de Phone Number [address] [address] documented in this encounter Visit Diagnoses Diagnosis Hypovitaminosis D- Primary Unspecified vitamin D deficiency documented in this encounter Care Teams Battery Tester And Repairer Relationship Specialty Start Date End Date Gustabo Lee DO [address] [place] [address] PCP - General Internal Medicine 08/21/17 Gustabo Lee DO [address] [facility] [place] [address] [email or web address] Historical LMR Provider 07/12/17 10/04/21 Ilene Maya NP [address] [address] Historical LMR Provider 07/12/17 2 Annie Chang CNM [address] [place] [address] Historical LMR Provider 07/12/17 2 Epi Kenyon MD [email or web address] Historical LMR Provider 07/12/17 Yumiko Ferro NP [address] [place] [address] [email or web address] Historical LMR Provider 07/12/17 2 Berna Reynolds MD 22 [facility] [address] [place] [address] [email or web address] Historical LMR Provider 07/12/17 10/04/21 Hafsa Lopez NP [address] [place] [address] Historical LMR Provider 07/12/17 2 documented as of this encounter Additional Source Comments The information contained in this document represents components of the legal health record. It is not the complete legal health record[facility]
== END 2025-06-27 13:26 | disposition home or self-care (01) ==
LOC: HO.HWS 13:05
PROVIDERS: PCP Internal Medicine; Visit Provider Obstetrics & Gynecology
DX: N93.9 Abnormal uterine and vaginal bleeding, unspecified (principal)
CPT/HCPCS: 99213